=== PATIENT | female | born 1975 | race Caucasian/White ===

== ENCOUNTER 2021-02-26 16:48 | Outpatient (REF) | payer OTHER, SELFPAY | END 2021-02-26 16:49 | disposition home or self-care (01) | LOC: HO.LNP 16:48 | PROVIDERS: Visit Provider Physician Assistant Medical | DX: Z20.822 Contact with and (suspected) exposure to COVID-19 (principal); J06.9 Acute upper respiratory infection, unspecified | CPT/HCPCS: U0003; U0005 ==

== ENCOUNTER 2023-12-12 16:15 | Emergency (ER) | payer OTHER, SELFPAY ==
--- NOTE | 2023-12-12 | ECG_ITS ---
Test Reason : chest pain Blood Pressure : / mmHG Vent. Rate : 088 BPM Atrial Rate : 088 BPM P-R Int : 158 ms QRS Dur : 082 ms QT Int : 354 ms P-R-T Axes : 049 052 046 degrees QTc Int : 428 ms Normal sinus rhythm Normal ECG No previous ECGs available Referred By: Generic ED Physician Electronically Signed By:CORAL PALMA
--- NOTE | ~2023-12-12 | XR_ITS ---
EXAMINATION: XR CHEST CLINICAL INFORMATION: chest pain COMPARISON: None TECHNIQUE: 2 views of the chest FINDINGS: Lines and tubes: None. Clear lungs. No pleural effusion. No pneumothorax. Normal cardiomediastinal silhouette. Lucency and irregularity of the right lateral fifth rib may reflect an age indeterminate fracture deformity versus a lucent osseous lesion, recommend correlation with history of trauma and CT chest could be confirmatory. XR/XR chest 2V IMPRESSION: 1. Lucency and irregularity of the right lateral fifth rib may reflect an age indeterminate fracture deformity versus a lucent osseous lesion, recommend correlation with history of trauma and CT chest could be confirmatory in the absence of any history of trauma to suggest fracture. Electronically signed by: Vidya Espinosa MD 12/12/2023 05:08 PM EDT RP
[2023-12-12 16:34] VITALS: BP 137/65; PULSE 93; RESP 18; TEMP 37; O2SAT 94; BMI 28.1
--- NOTE | 2023-12-12 16:34 | ED.CHESTPAIN ---
HPI - Chest Pain General Chief Complaint: Chest Pain Stated Complaint: chest pain, light headed, headache Time Seen by Provider: 12/12/23 22:49 Related Data Home Medications ?Medication ?Instructions ?Recorded ?Confirmed L norgest/E estradiol-E estrad 1 tab PO DAILY 02/26/21 0.15 mg-30 mcg (84)/10 mcg(7) tabs,3mos adalimumab 40 mg/0.8 mL mg subcut 02/26/21 subcutaneous pen kit (Humira Pen) cholecalciferol (vitamin D3) 125 125 mcg PO DAILY 02/26/21 mcg (5,000 unit) tablet (Vitamin D3) ferrous gluconate 324 mg (38 mg 0 mg PO 02/26/21 iron) tablet folic acid 1 mg tablet 1 mg PO DAILY 02/26/21 prednisone 5 mg tablet 0 mg PO 02/26/21 Previous Rx's ?Medication ?Instructions ?Recorded lorazepam 0.5 mg tablet (Ativan) 0.5 mg PO TID PRN anxiety #10 tabs 12/12/23 Allergies Allergy/AdvReac Type Severity Reaction Status Date / Time Sulfa (Sulfonamide Allergy Unknown hives Verified 12/12/23 16:36 Antibiotics) FOR[facility]LY [facility], [facility] Social History Social History Patient Tobacco Use Status: Former Tobacco user Smoked in Last 30 Days: No Substance Use Type: Marijuana Advance Directives: No Advance Directives Information Provided: No Do you have a plan to hurt others: No Plan Patient : No Physical Exam Vital Signs: Vital Signs: Last Vital Signs Temp 98.0 F 12/12/23 23:32 Pulse 76 12/12/23 23:32 Resp 13 12/12/23 23:32 BP 146/75 H 12/12/23 23:32 Pulse Ox 100 12/12/23 23:32 O2 Del Method Room Air 12/12/23 23:32 BMI result Body Mass Index 28.1 Course Course Course Narrative: This is a Rapid Medical Examination (RME) performed by Leslie Hawthorne PA-C in triage. Full HPI, ROS, assessment and treatment plan per primary provider in the Main ED. 48 yo female hx of RA ambulates w/ cane, psoriatic arthritis, anxiety on duloxetine here for eval of intermittent chest pains x today. admits to chest fluttering. reports nausea last night which has resolved. denies vomiting. + very anxious in triage. RRR. lungs are clear. Plan: ekg, cxr, labs Medical Decision Making Lab Data MDM Lab Attestation statement: I reviewed the patient's lab results. 12/12/23 16:41 12/12/23 16:41 Labs: Lab Results 12/12/23 12/12/23 Range/Units 16:41 20:24 WBC 7.3 (4.8-10.8) X10*3/uL RBC 3.73 L (4.20-5.50) X10*6/uL Hgb 9.1 L (12.0-16.0) g/dl Hct 29.9 L (37.0-47.0) % MCV 80.2 (80.0-98.0) fL MCH 24.4 L (27.0-33.0) pg MCHC 30.4 L (31.0-35.0) g/dl RDW 14.3 (11.0-16.0) % Plt Count 609 H (160-400) X10*3/uL MPV 7.7 L (9.4-12.3) fL Immature Gran % (Auto) 0.3 (0.0-0.4) % Neut % (Auto) 66.2 (45-73) % Lymph % (Auto) 26.5 (20-40) % [place] % (Auto) 5.1 (2-11) % Eos % (Auto) 1.1 (0-4) % Baso % (Auto) 0.8 (0-2) % Lymph # (Auto) 1.9 (1.2-4.9) X10*3/uL [place] # (Auto) 0.4 (0.1-1.2) X10*3/uL Eos # (Auto) 0.1 (0.0-0.4) X10*3/uL Baso # (Auto) 0.1 (0.0-0.2) X10*3/uL Abs Immat Gran (auto) 0.02 (0.00-0.03) X10*3/uL Absolute Neuts (auto) 4.8 (2.0-8.3) x10*3/uL Absolute Nucleated RBC 0.000 (0.0-0.012) X10*3/uL Nucleated RBC % (auto) 0.0 (0.0-0.2) /100WBC Sodium 140 (135-145) mmol/L Potassium 3.7 (3.3-5.1) mmol/L Chloride 103 (96-108) mmol/L Carbon Dioxide 28 (22-29) mmol/L Anion Gap 13 (12-20) BUN 14 (9-16) mg/dL Creatinine 0.54 (0.5-1.4) mg/dL Estim Creat Clear Calc 125.8 Estimated GFR > 60 Random Glucose 87 (60-115) mg/dL Calcium 9.4 (8.4-10.2) mg/dL Magnesium 2.1 (1.6-2.6) mg/dL Total Bilirubin 0.3 (0.0-1.0) mg/dL AST 10 (5-31) U/L ALT 6 (0-31) U/L Alkaline Phosphatase 74 (39-117) U/L Troponin I High Sens < 2.7 < 2.7 (<3.5-17.0) ng/L Total Protein 7.5 (6.5-8.0) g/dL Albumin 3.4 L (3.5-5.0) g/dL Radiology Impression Discussion of test interpretation with radiology: I have reviewed the radiologist's reading. Radiologist Impression: XR chest 2V IMPRESSION: 1. Lucency and irregularity of the right lateral fifth rib may reflect an age indeterminate fracture deformity versus a lucent osseous lesion, recommend correlation with history of trauma and CT chest could be confirmatory in the absence of any history of trauma to suggest fracture. Electronically signed by: Vidya Espinosa MD 12/12/2023 05:08 PM EDT RP Dictated By: Vidya Espinosa MD Discharge Plan Discharge Clinical Impression: Palpitation, Anxiety Patient Disposition: Home, Self-Care Instructions: Heart Palpitations (ED), Hyperventilation (ED) Additional Instructions: Your blood work did reveal anemia however this is most likely consistent with your chronic anemia and it was not related to your chest pain Your comprehensive metabolic panel was normal. Your high sensitive troponin I ( a marker of heart damage) was below detectable limits in your repeat high sensitive troponin I was also below detectable limits. This is very reassuring and suggests that the pain that your experiencing is not from heart damage/heart attack. Your chest x-ray was unremarkable and did not reveal a cause for your chest pain. Your fluttering sensation is consistent with palpitations and sometimes this can cause you to have an anxiety attack/hyperventilation syndrome Continue taking medications as prescribed by your providers Take Ativan (lorazepam) 0.5 mg pills, 1 pill 3 times a day as needed for palpitations/anxiety. This medication will make you sleepy, do not drive or work while taking this medication. Follow-up with your doctor in 2 days. Please return to the emergency department if your symptoms get worse or if you develop any symptoms that are concerning to you. Prescriptions: New lorazepam [Ativan] 0.5 mg tablet 0.5 mg PO TID PRN (Reason: anxiety) Qty: 10 0RF Rx Instructions: patient may ask for partial fill No Action Humira Pen 40 mg/0.8 mL pen injector kit subcut prednisone 5 mg tablet 0 mg PO ferrous gluconate 324 mg (38 mg iron) tablet 0 mg PO cholecalciferol (vitamin D3) [Vitamin D3] 125 mcg (5,000 unit) tablet 125 mcg PO DAILY folic acid 1 mg tablet 1 mg PO DAILY L norgest/e.estradiol-e.estrad 0.15 mg-30 mcg (84)/10 mcg (7) tablets,dose pack,3 month 1 tab PO DAILY Interventions: ED Discharge Assessment Last Done: 12/12/23 23:32 Discharge Date/Time: 12/12/23 23:52 Print Language: Indonesian
[2023-12-12 16:53] LABS: MANUAL DIFF FLAG NO
[2023-12-12 16:55] LABS: Basophils Absolute Auto 0.1 X10*3/uL (0.0-0.2); Basophils Percent Auto 0.8 % (0-2); Eosinophils Absolute Auto 0.1 X10*3/uL (0.0-0.4); Eosinophils Percent Auto 1.1 % (0-4); Hematocrit 29.9 % (37.0-47.0); Hemoglobin 9.1 g/dl (12.0-16.0); Imm Gran Abs Auto 0.02 X10*3/uL (0.00-0.03); Imm Gran Pct Auto 0.3 % (0.0-0.4); Lymphocytes Absolute Auto 1.9 X10*3/uL (1.2-4.9); Lymphocytes Percent Auto 26.5 % (20-40); Mean Corpuscular HGB Conc 30.4 g/dl (31.0-35.0); Mean Corpuscular Hemoglobin 24.4 pg (27.0-33.0); Mean Corpuscular Volume 80.2 fL (80.0-98.0); Mean Platelet Volume 7.7 fL (9.4-12.3); Monocytes Absolute Auto 0.4 X10*3/uL (0.1-1.2); Monocytes Percent Auto 5.1 % (2-11); Neutrophils Absolute Auto 4.8 x10*3/uL (2.0-8.3); Neutrophils Percent Auto 66.2 % (45-73); Platelet Count 609 X10*3/uL (160-400); Red Blood Count 3.73 X10*6/uL (4.20-5.50); Red Cell Distribution Width 14.3 % (11.0-16.0); White Blood Count 7.3 X10*3/uL (4.8-10.8)
[2023-12-12 17:15] LABS: Alanine Aminotransferase 6 U/L (0-31); Albumin Level 3.4 g/dL (3.5-5.0); Alkaline Phosphatase 74 U/L (39-117); Anion Gap 13 (12-20); Aspartate Amino Transferase 10 U/L (5-31); Bilirubin Total 0.3 mg/dL (0.0-1.0); Blood Urea Nitrogen 14 mg/dL (9-16); Calcium 9.4 mg/dL (8.4-10.2); Carbon Dioxide 28 mmol/L (22-29); Chloride 103 mmol/L (96-108); Creatinine Clr Calc Pharmacy 125.8; Estimated Glomerular Filt Rate > 60; Glucose Random 87 mg/dL (60-115); Magnesium 2.1 mg/dL (1.6-2.6); Potassium 3.7 mmol/L (3.3-5.1); Sodium 140 mmol/L (135-145); Total Protein 7.5 g/dL (6.5-8.0)
[2023-12-12 17:23] LABS: Troponin-I High Sensitivity < 2.7 ng/L (<3.5-17.0)
[2023-12-12 20:15] VITALS: BP 147/74; PULSE 89; RESP 20; TEMP 36; O2SAT 100
--- OUTSIDE RECORDS SUMMARY | 2023-12-12 20:28 | XMS_ITS | Continuity of Care Document ---
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 Name Role Phone Stacey Lacey GARCIA Primary Care Physician Encounter [facility] Date(s): 12/20/21 - 01/19/22 [facility] [address] [place] [address]- Attending Physician: Dennis López Admitting Physician: Dennis López Referring Physician: AdmtrDennis Allergies, Adverse Reactions, Alerts Substance Reaction Severity Status sulfa drugs rash and fever Active Immunizations Given and Recorded Vaccine Date Status Refusal Reason SARS-CoV-2 (COVID-19) mRNA BNT-162b2 vac 1 02/20/21 Recorded SARS-CoV-2 (COVID-19) mRNA BNT-162b2 vac 07/13/20 Recorded SARS-CoV-2 (COVID-19) mRNA BNT-162b2 vac 06/21/20 Recorded Measles/Mumps/Rubella Virus Vaccine 10/04/15 Given tetanus/diphtheria/pertussis, acel(Tdap) 08/04/15 Given 1Result Comment: Booster Medications acetaminophen 325 mg oral tablet 650 mg, By Mouth, Every 6 hours, Refills 0, Maintenance, 11/09/21 8:23:00 EDT, Partial fill upon patient request if the prescription is for a schedule II opioid drug. Start Date: 11/09/21 Status: Ordered apixaban 2.5 mg oral tablet 1 tablet = 2.5 mg, By Mouth, 2 times a day, # 60 tablet, 0 Refills, Maintenance, 11/09/21 8:16:00 EDT, Tablet, [facility], Partial fill upon patient request if the prescription is for aschedule II opioid drug., 158, cm, 11/09/21 6:57:00... Start Date: 11/09/21 Stop Date: 12/09/21 Status: Ordered docusate sodium 50 mg oral capsule 2 capsule = 100 mg, By Mouth, 2 times a day, Take 1 tablet two times a day with plenty of water, # 120 capsule, 0 Refills, Maintenance, 11/09/21 8:20:00 EDT, Capsule, [facility], Partial fill upon patient request if the prescription is... Start Date: 11/09/21 Status: Ordered duloxetine 20 mg oral enteric coated capsule 1 capsule = 20 mg, By Mouth, Daily at bedtime, # 30 capsule, 1 Refills, Maintenance, 10/16/21 13:16:00 EDT, EC Capsule, [facility], Partial fill upon patient request if the prescription is for a schedule II opioid drug., 160.02, cm, 0... Start Date: 10/16/21 Stop Date: 12/15/21 Status: Ordered ferrous gluconate 324 mg oral tablet 1 tablet, By Mouth, 2 times a day, IF MENSTRUATING, INCREASE TO 3 TIMES DAILY. 30 DAY SUPPLY., # 70tablet, 1 Refills, Maintenance, 12/17/21 9:20:00 EDT, [id number], 158, cm, 12/13/21 10:52:00 EDT, Height, 78, kg, 12/13/21 10:52:00 EDT, Dry Weight Start Date: 12/17/21 Status: Ordered folic acid 1 mg oral tablet 1, tablet, By Mouth, Daily, EXCEPT THE DAY YOU TAKE METHOTREXATE., # 26 tablet, Refills 6, Maintenance, 01/12/22 8:49:00 EDT, Route to Pharmacy Electronically, [id number], 158, cm, 12/13/21 10:52:00 EDT, Height, 78, kg, 12/13/21 10:52:00 EDT, Dry... Start Date: 01/12/22 Status: Ordered methotrexate 2.5 mg oral tablet 4 tablet = 10 mg, By Mouth, Every week, # 32 tablet, 6 Refills, Maintenance, 03/07/21 16:05:00 EST,[facility] #[id number], Partial fill upon patient request if the prescription is for a schedule II opioid drug., 161.5, cm, 02/08/21 16:15:00 EST, Height Start Date: 03/07/21 Status: Ordered Milk of Magnesia Liquid 30 mL, By Mouth, Daily, PRN Constipation, 0 Refills, Maintenance, 11/09/21 8:26:00 EDT, Suspension,Partial fill upon patient request if the prescription is for a schedule II opioid drug. Start Date: 11/09/21 Status: Ordered MiraLax Powder 1 pack/packet = 17 Gm, By Mouth, Daily, PRN Constipation, 0 Refills, Maintenance, 11/09/21 8:26:00 EDT, Powder, Partial fill upon patient request if the prescription is for a schedule II opioid drug. Start Date: 11/09/21 Status: Ordered pantoprazole 40 mg oral delayed release tablet = 40 mg, By Mouth, Daily, Take 1 capsule daily, # 30 capsule, 0 Refills, Maintenance, 11/09/21 8:18:00 EDT, EC Tablet, 158, cm, 11/09/21 6:57:00 EDT, Height, 83.5, kg, 11/08/21 11:05:00 EDT, Dry Weight Start Date: 11/09/21 Stop Date: 12/09/21 Status: Ordered predniSONE 5 mg oral tablet 1 tablet, By Mouth, Daily, # 30 tablet, 2 Refills, Maintenance, 11/24/21 9:42:00 EDT, [facility], 158, cm, 11/09/21 6:57:00 EDT, Height, 83.5, kg, 11/08/21 11:05:00 EDT, Dry Weight Start Date: 11/24/21 Status: Ordered senna 187 mg oral tablet 1 tablet = 8.6 mg, By Mouth, Daily at bedtime, PRN as needed for constipation, 0 Refills, Maintenance, 11/09/21 8:26:00 EDT, Tablet, Partial fill upon patient request if the prescription is for a schedule II opioid drug. 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 Depression with anxiety Confirmed Active Obese class I Confirmed Active avascular necrosis knees Confirmed Active Polyarthritis Confirmed Active Prolonged QT interval Confirmed Active Psoriasis Confirmed Active Rheumatoid arthritis, erosive, seronegative Confirmed Active Lupus Confirmed Active Thrombocytosis Confirmed Active Urge incontinence Confirmed Active Uterine fibroid Confirmed Active Vitamin D deficiency Confirmed Active Social History Social History Type Response Smoking Status Never smoker entered on: 09/07/15 Sex Patient Care team information Personnel Name: Stacey GARCIA, Lacey Thomas Address: Address: [address] [place] [id number]
--- OUTSIDE RECORDS SUMMARY | 2023-12-12 20:28 | XMS_ITS | Continuity of Care Document ---
Author Organization [facility] Address [address] [place] [address]- Care Team Providers Care Hourly Associate Name Role Phone Stacey Lacey GARCIA Primary Care Physician [phone] [facility] Date(s): 11/18/19 - 12/18/19 [facility] [address] [place] [id number] Attending Physician: Dennis López Admitting Physician: Admtr, Dennis Referring Physician: Admtr, [id number] Allergies, Adverse Reactions, Alerts Substance Reaction Severity Status sulfADIAZINE Active Immunizations Given and Recorded Vaccine Date Status Refusal Reason Measles/Mumps/Rubella Virus Vaccine 10/04/15 Given tetanus/diphtheria/pertussis, acel(Tdap) 08/04/15 Given Medications cholecalciferol 10,000 intl units oral capsule 1 capsule = 10,000 International_Units, By Mouth, Every week, # 5 capsule, 5 Refills, Maintenance, 11/19/16 10:57:56, Capsule Start Date: 11/19/16 Status: Ordered Tylenol Caplet = 650 mg, By Mouth, Every 4 hours, 0 Refills, Maintenance, 09/14/15 16:12:22 Start Date: 09/14/15 Status: Ordered Problem List Condition Effective Dates Status Health Status Inform ant AVN (avascular necrosis of b one) left hip;NEOS(Confirmed) 04/01/18 Active AMA (advanced maternal age) primigravida 35+(Confirmed) Active History of hip replacement(Confirmed) Active Obesity(Confirmed) Active Polyarthritis(Confirmed) Active Psoriasis(Confirmed) Active Lupus(Confirmed) Active Urge incontinence(Confirmed) Active Vitamin D deficiency(Confirmed) Active Social History Social History Type Response Smoking Status Never smoker entered on: 09/07/15 Sex
--- OUTSIDE RECORDS SUMMARY | 2023-12-12 20:28 | XMS_ITS | Continuity of Care Document ---
Author Organization [facility] Address [address] [place] [address]- Care Team Providers Care Suit Attendant Name Role Phone Stacey Lacey GARCIA Primary Care Physician Encounter [facility] Date(s): 09/07/21 - 10/07/21 [facility] [address] [place], [place] [address] Allergies, Adverse Reactions, Alerts Substance Reaction Severity Status sulfa drugs rash and fever Active Immunizations Given and Recorded Vaccine Date Status Refusal Reason SARS-CoV-2 (COVID-19) mRNA BNT-162b2 vac 1 02/20/21 Recorded SARS-CoV-2 (COVID-19) mRNA BNT-162b2 vac 07/13/20 Recorded SARS-CoV-2 (COVID-19) mRNA BNT-162b2 vac 06/21/20 Recorded Measles/Mumps/Rubella Virus Vaccine 10/04/15 Given tetanus/diphtheria/pertussis, acel(Tdap) 08/04/15 Given 1Result Comment: Booster Medications ferrous gluconate 324 mg oral tablet 1 tablet = 324 mg, By Mouth, 3 times a day, # 100 tablet, 0 Refills, Maintenance, 08/29/21 9:22:00 EDT, Tablet, Partial fill upon patient request if the prescription is for a schedule II opioid drug. Start Date: 08/29/21 Status: Ordered oxyCODONE 5 mg oral tablet 5 mg, 1, tablet, By Mouth, Every 6 hours, PRN, # 5 tablet, Refills 0, Tot. Refills 0, Maintenance, as needed for pain, 09/18/21 11:01:00 EDT, Route to Pharmacy Electronically, [facility], Partial fill upon patient request if the presc... Start Date: 09/18/21 Status: Ordered Tramadol = 50 mg, By Mouth, Every 6 hours, PRN Pain , Moderate, 0 Refills, Maintenance, 07/26/21 6:58:00 EDT, Partial fill upon patient request if the prescription is for a schedule II opioid drug. Start Date: 07/26/21 Status: Ordered Tylenol Arthritis Caplet 2 tablets, By Mouth, Every 8 hours, 0 Refills, Maintenance, 09/07/21 9:14:00 EDT, Partial fill uponpatient request if the prescription is for a schedule II opioid drug. Start Date: 09/07/21 Status: Ordered Problem List Condition Effective Dates Status Health Status Inform ant Abnormal bleeding in menstru al cycle(Confirmed) Active History of hip replacement(Confirmed) Active correction systemic steroid user(Confirmed) Active Depression with anxiety(Confirmed) Active Obese class I(Confirmed) Active avascular necrosis knees(Confirmed) Active Polyarthritis(Confirmed) Active Prolonged QT interval(Confirmed) Active Psoriasis(Confirmed) Active Rheumatoid arthritis, erosiv e, seronegative(Confirmed) Active Lupus(Confirmed) Active Thrombocytosis(Confirmed) Active Urge incontinence(Confirmed) Active Vitamin D deficiency(Confirmed) Active Social History Social History Type Response Smoking Status Never smoker entered on: 09/07/15 Sex
--- OUTSIDE RECORDS SUMMARY | 2023-12-12 20:28 | XMS_ITS | Continuity of Care Document ---
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 Machine Mechanic Name Role Phone Stacey JOSE, Lacey Thomas Primary Care Physician [phone] Encounter [facility] Date(s): 01/11/21 - 02/10/[address] [address] Allergies, Adverse Reactions, Alerts Substance Reaction Severity Status sulfADIAZINE Active Immunizations Given and Recorded Vaccine Date Status Refusal Reason SARS-CoV-2 (COVID-19) mRNA BNT-162b2 vac 07/13/20 Recorded SARS-CoV-2 (COVID-19) mRNA BNT-162b2 vac 06/21/20 Recorded Measles/Mumps/Rubella Virus Vaccine 10/04/15 Given tetanus/diphtheria/pertussis, acel(Tdap) 08/04/15 Given Medications ferrous gluconate 324 mg oral tablet 1 tablet, By Mouth, 2 times a day, for 30 days, TAKE TID WHEN MENSTRUATING, # 70 tablet, 6 Refills,Acute 07/26/21 22:23:00 EDT, 12/28/20 22:23:00 EDT, [id number], 161.5, cm, 12/21/20 14:28:00 EDT, Height Start Date: 12/28/20 Stop Date: 07/26/21 Status: Ordered Seasonique oral tablet 1 tablet, By Mouth, Daily, for 91 days, # 91 tablet, 0 Refills, Acute 03/29/21 11:40:00 EST, 12/28/20 11:40:00 EDT, [id number], 1 tablet By Mouth Daily,x91 days, 161.5, cm, 12/21/20 14:28:00 EDT, Height Start Date: 12/28/20 Stop Date: 03/29/21 Status: Ordered Tylenol Caplet = 650 mg, By Mouth, Every 4 hours, 0 Refills, Maintenance, 09/14/15 16:12:22 Start Date: 09/14/15 Status: Ordered Problem List Condition Effective Dates Status Health Status Inform ant 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
--- OUTSIDE RECORDS SUMMARY | 2023-12-12 20:28 | XMS_ITS | Continuity of Care Document ---
Author Organization [facility] Kali Address [address] [place] [address]- Care Team Providers Care Legal Referee Name Role Phone Stacey MANAGER FOREIGN, Lacey Thomas Primary Care Physician Encounter [facility] Date(s): 06/25/23 - 07/02/23 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 Depression with anxiety(Discharge Diagnosis) - 06/25/23 Rheumatoid arthritis, erosive, seronegative(Discharge Diagnosis) - 06/25/23 Thrombocytosis(Discharge Diagnosis) - 06/25/23 Vitamin D deficiency(Discharge Diagnosis) - 06/25/23 Attending Physician: Not on Staff, Attending MD Allergies, Adverse Reactions, Alerts Substance Reaction Severity Status sulfa drugs rash and fever Active Immunizations Given and Recorded Vaccine Date Status Refusal Reason pneumococcal 20-valent conjugate vaccine 1 01/13/23 Given influenza virus vaccine, inactivated 12/20/22 Orion rded SARS-CoV-2 (COVID-19) mRNA BNT-162b2 vac 2 02/20/21 Recorded SARS-CoV-2 (COVID-19) mRNA BNT-162b2 vac 07/13/20 Recorded SARS-CoV-2 (COVID-19) mRNA BNT-162b2 vac 06/21/20 Recorded Measles/Mumps/Rubella Virus Vaccine 10/04/15 Given tetanus/diphtheria/pertussis, acel(Tdap) 08/04/15 Given 1Result Comment: [id number] 2Result Comment: Booster Medications acetaminophen 325 mg oral tablet 650 mg, By Mouth, Every 6 hours, Refills 0, Maintenance, 11/09/21 8:23:00 EDT, Partial fill upon patient request if the prescription is for a schedule II opioid drug. Start Date: 11/09/21 Status: Ordered alendronate 70 mg oral tablet See Instructions, 1 tablet By Mouth, once weekly, with 6-8 oz plain water, at least 30 minutes before first food, beverage, or medication of the day, # 4 tablet, 6 Refills, Maintenance, 05/20/23 9:32:00 EST, [facility], Partial fill... Start Date: 05/20/23 Status: Ordered BD 1ML 25G 1 inch syringe BD 1ML 25G 1 inch syringe, See Instructions, # 4 each, Refills 6, Tot. Refills 6, Maintenance, use 1 syringe weekly to inject SQ methotrexate as directed, 12/16/22 16:55:00 EDT, Supply, 158, cm, 11/21/22 9:48:00 EDT, Height, 78, kg, 12/13/21 10:52:00... Start Date: 12/16/22 Status: Ordered Caltrate 600 + D oral tablet 1 tablet, By Mouth, 2 times a day, # 60 tablet, 6 Refills, Maintenance, 12/16/22 16:28:00 EDT, Tablet, [facility], Partial fill upon patient request if the prescription is for a schedule II opioid drug., 1 tablet By Mouth 2 times a da... Start Date: 12/16/22 Status: Ordered duloxetine 20 mg oral enteric coated capsule 1 capsule, By Mouth, Daily, # 30 capsule, 5 Refills, Maintenance, 06/24/23 15:42:00 EDT, [facility], 158, cm, 05/19/23 16:05:00 EST, Height, 78, kg, 12/13/21 10:52:00 EDT, Dry Weight Start Date: 06/24/23 Status: Ordered ferrous gluconate 324 mg oral tablet 1 tablet, By Mouth, 2 times a day, IF MENSTRUATING, INCREASE TO 3 TIMES DAILY. 30 DAY SUPPLY., # 70tablet, 1 Refills, Maintenance, 12/17/21 9:20:00 EDT, [id number], 158, cm, 12/13/21 10:52:00 EDT, Height, 78, kg, 12/13/21 10:52:00 EDT, Dry Weight Start Date: 12/17/21 Status: Ordered Flonase Allergy Relief 50 mcg/inh nasal spray See Instructions, 1 sprays Daily in each nostril, # 16 Gm, 0 Refills, Maintenance, 05/08/23 10:58:00 EST, [id number], Partial fill upon patient request if the prescription is for a schedule II opioid drug., 158, cm, 01/13/23 9:29:00 EDT, Heig... Start Date: 05/08/23 Status: Ordered folic acid 1 mg oral tablet 1, tablet, By Mouth, Daily, EXCEPT THE DAY YOU TAKE METHOTREXATE., # 26 tablet, Refills 6, Maintenance, 03/11/23 15:05:00 EST, Route to Pharmacy Electronically, [id number], 158, cm, 01/13/23 9:29:00 EDT, Height, 78, kg, 12/13/21 10:52:00 EDT, Dry... Start Date: 03/11/23 Status: Ordered for med administration for med administration, See Instructions, # 4 each, Refills 4, Tot. Refills 4, Maintenance, BD 3ml 25G 1 inch syringe Use one syringe weekly for the administration of medication, 05/08/23 14:29:00 EST, Supply, 158, cm, 01/13/23 9:29:00 EDT, Height, 7... Start Date: 05/08/23 Status: Ordered gabapentin 100 mg oral capsule 100 mg, 1, capsule, By Mouth, 3 times a day, # 90 capsule, Refills 5, Tot. Refills 5, Maintenance, 05/19/23 16:26:00 EST, Route to Pharmacy Electronically, [facility], Partial fill upon patient request if the prescription is for a lucho... Start Date: 05/19/23 Status: Ordered meloxicam 15 mg oral tablet 1 tablet, By Mouth, Every other day, # 15 tablet, 4 Refills, Maintenance, 03/26/23 13:25:00 EST, [id number], 158, cm, 01/13/23 9:29:00 EDT, Height, 78, kg, 12/13/21 10:52:00 EDT, Dry Weight Start Date: 03/26/23 Status: Ordered methotrexate 25 mg/mL injectable solution = 25 mg, Subcutaneous Injection, Every week, # 4 mL, 6 Refills, Maintenance, 12/16/22 17:05:00 EDT,[facility], Partial fill upon patient request if the prescription is for a schedule II opioid drug., 158, cm, 11/21/22 9:48:00 EDT, He... Start Date: 12/16/22 Stop Date: 07/14/23 Status: Ordered Milk of Magnesia Liquid 30 mL, By Mouth, Daily, PRN Constipation, 0 Refills, Maintenance, 11/09/21 8:26:00 EDT, Suspension,Partial fill upon patient request if the prescription is for a schedule II opioid drug. Start Date: 11/09/21 Status: Ordered predniSONE 5 mg oral tablet 1 tablet = 5 mg, By Mouth, Daily, for 90 days, # 90 tablet, 2 Refills, Hard Stop 12/12/23 15:43:00 EDT, 03/17/23 15:43:00 EST, [facility], Partial fill upon patient request if the prescription is for a schedule II opioid drug., 158, c... Start Date: 03/17/23 Stop Date: 12/12/23 Status: Ordered Simponi SmartJect 50 mg/0.5 mL subcutaneous solution See Instructions, INJECT 50MG SUBCUTANEOUSLY EVERY 28 DAYS, # 0.5 mL, 3 Refills, Maintenance, 03/11/23 15:07:00 EST, [facility], 158, cm, 01/13/23 9:29:00 EDT, Height, 78, kg, 12/13/21 10:52:00 EDT, Dry Weight Start Date: 03/11/23 Status: Ordered Vitamin D3 5000 intl units oral tablet See Instructions, 1 tablet By Mouth weekly, # 100 tablet, 0 Refills, Maintenance, 02/11/23 14:46:00EST, Tablet, [id number], Partial fill upon patient request if the prescription is for a schedule II opioid drug., 158, cm, 01/13/23 9:29:00 EDT... Start Date: 02/11/23 Status: Ordered Problem List Condition Confirmation Course Effective Dates Status H ealth Status Informant History of hip replacement Confirmed Active Iron deficiency anemia Confirmed Active half-way systemic steroid user Confirmed Active Depression with anxiety Confirmed Active Obese class I Confirmed Active avascular necrosis knees Confirmed Active Polyarthritis Confirmed Active Prolonged QT interval Confirmed Active Psoriasis Confirmed Active Rheumatoid arthritis, erosive, seronegative Confirmed Active Lupus Confirmed Active Thrombocytosis Confirmed Active Urge incontinence Confirmed Active Uterine fibroid Confirmed Active Vitamin D deficiency Confirmed Active Diagnosis Diagnosis Type Effective Dates Health Status Clinical Service Informant Fatigue Discharge Diagnosis 06/25/23 Iron deficiency anemia Discharge Diagnosis 06/25/23 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 Discharge Diagnosis 06/25/23 Depression with anxiety Discharge Diagnosis 06/25/23 Rheumatoid arthritis, erosive, seronegative Discharge Diagnosis 06/25/23 Thrombocytosis Discharge Diagnosis 06/25/23 Vitamin D deficiency Discharge Diagnosis 06/25/23 Vital Signs Most recent to oldest [Reference Range]: 1 Height 158 cm (06/25/23 9:29 AM) Weight 84.4 kg (06/25/23 9:29 AM) Oxygen Saturation [94-100 %] 96 % (06/25/23 9:29 AM) Pulse Rate [55-90 bpm] 74 bpm (06/25/23 9:29 AM) Body Mass Index [18.5-24.99 kg/m2] 33.81 kg/m2 *>HHI* (06/25/23 9:29 AM) Blood Pressure [90-138/55-84 mm Hg] 129/ 73mm Hg (06/25/23 9:29 AM) Temperature [96.8-100.4 DegF] 98.0 DegF (06/25/23 9:29 AM) Mode of Delivery (Oxygen) Room air (06/25/23 9:29 AM) Blood pressure sites Arm, left (06/25/23 9:29 AM) Temperature Route Oral (06/25/23 9:29 AM) Weight Obtained Via Standing scale (06/25/23 9:29 AM) Social History Social History Type Response Smoking Status Never smoker entered on: 09/07/15 Sex Note * Mario Edgar: PERFORM, SIGN, VERIFY Event Display: Patient Education/Instruction Authored Date: [id number] [facility] *MEGAN Ramirez Clinical Summary Name EDGAR GARCIA Age 48 Years 1975 PCP Stacey MANAGER FOREIGN, Lacey Thomas PCP Visit Date 06/25/2023 09:24:00 Additional Instructions: Scheduled Appointments?? Future Appointments ?No Future Appointments Scheduled Follow-Up Instructions ?? Diagnosis Other fatigue; half-way (current) use of systemic steroids; Iron deficiency anemia, unspecified Medications: Please continue your medications until treatment is completed or stopped by your provider. Discuss any questions related to medications with your provider. Medications to Continue Taking That Have Changed These medications were not printed or sent to your pharmacy - PredniSONE (predniSONE 5 mg oral tablet) 1 tab(s) Oral Daily for 90 Days. Refills: 2. Next Dose: Medications to Continue with No Changes These medications were not printed or sent to your pharmacy Acetaminophen (acetaminophen 325 mg oral tablet) 650 Milligram Oral every 6 hours. Next Dose: Alendronate (alendronate 70 mg oral tablet) 1 tablet By Mouth, once weekly, with 6-8 oz plain water, at least 30 minutes before first food, beverage, or medication of the day.Refills: 6. Next Dose: Calcium And Vitamin D Combination (Caltrate 600 + D oral tablet) 1 tab(s) Oral twice a day. Refills: 6. Next Dose: Cholecalciferol (Vitamin D3 5000 intl units oral tablet) 1 tablet By Mouth weekly. Refills: 0. Next Dose: Duloxetine (duloxetine 20 mg oral enteric coated capsule) 1 capsule Oral Daily. Refills: 5. Next Dose: Durable Medical Equipment (BD 1ML 25G 1 inch syringe) use 1 syringe weekly to inject SQ methotrexate as directed. Refills: 6. Next Dose: Durable Medical Equipment (for med administration) BD 3ml 25G 1 inch syringe Use one syringe weekly for the administration of medication. Refills: 4. Next Dose: Ferrous Gluconate (ferrous gluconate 324 mg oral tablet) 1 tab(s) Oral twice a day. IF MENSTRUATING, INCREASE TO 3 TIMES DAILY. 30 DAY SUPPLY.. Refills: 1. Next Dose: Fluticasone Nasal (Flonase Allergy Relief 50 mcg/inh nasal spray) 1 sprays Daily in each nostril. Refills: 0. Next Dose: Folic Acid (folic acid 1 mg oral tablet) 1 tab(s) Oral Daily. EXCEPT THE DAY YOU TAKE METHOTREXATE.. Refills: 6. Next Dose: Gabapentin (gabapentin 100 mg oral capsule) 1 capsule Oral 3 times a day. Refills: 5. Next Dose: Golimumab (Simponi SmartJect 50 mg/0.5 mL subcutaneous solution) INJECT 50MG SUBCUTANEOUSLY EVERY 28 DAYS. Refills: 3. Next Dose: Meloxicam (meloxicam 15 mg oral tablet) 1 tab(s) Oral every other day. Refills: 4. Next Dose: Methotrexate (methotrexate 25 mg/mL injectable solution) 25 Milligram Subcutaneous Injection every week for 30 Days. Refills: 6. Next Dose: Milk of Magnesia (Milk of Magnesia Liquid) 30 Milliliter Oral Daily as needed Constipation. Next Dose: Allergy Info:?? sulfa drugs Medications Given This Visit Future Orders ?No future orders Future Orders ?Ferritin? Order Date:06/25/23?- Complete within?CBC? Order Date:06/25/23?- Complete within?TSH? Order Date:06/25/23?- Complete within?Vitamin D 25 Hydroxy Level? Order Date:06/25/23?- Complete within?Vitamin B12 Level? Order Date:06/25/23?- Complete within?Comprehensive Metabolic Panel? Order Date:06/25/23?- Complete within? Vital Signs Height 158 cm Weight 84.4 kg BMI 33.81 kg/m2 Blood Pressure 129 mm Hg/73 mm Hg Temperature 98.0 DegF Pulse Rate 74 bpm Respiratory Rate 02 Sat Mode of Delivery 96 %/Room air You can now view a summary of your hospital visit from the comfort of your home through a free online portal called [employer]. [employer] is a website that allows you to securely view your medical information including discharge summary, medications and follow-up visits. ??You can alsosend a secure electronic message to your doctor???s office to request appointments, renew medications or just ask a question. You can enroll at [email or web address] or register during your next office visit. Disclaimer:?? The information provided is of a general nature and is intended to be used in conjunction with the recommendations and advice of your health care practitioner. ??Every effort has been made to ensure that the information provided is accurate and complete at the time it is provided to you however, as your needs change, or, as new ??information becomes available, different or additional instructions may be required. If you have questions, please consult with your primary care provider or pharmacist, as appropriate. ??This information is not intended to serve as substitution for assessment and evaluation by a qualified health care provider. If you do not have a primary care provider, you may find a [facility] provider by calling [employer] at [phone]. [facility], in keeping with [facility] guidance, no longer requires face masks for staff, patientsor visitors in most situations. Similar to time spent indoors at other locations, there is the chance that you were exposed to respiratory viruses during your time with us (such as flu or COVID-19).? If you develop symptoms concerning for a viral respiratory infection, please seek testing (and treatment if indicated) from your medical provider or home test kit. For information about the plan of care including goals and instructions for your diagnosis, please see the patient education orders section of this document. Patient Education Materials?? The content of this educational material or handout may have been modified, supplemented, or adapted from its original content and format to support your individualized medical care. Patient Care team information Care Team Personnel Name: Krystina Goldsmith RN Position: [facility] RN Member Role: Primary Care Nurse Name: Lacey Ibarra NP Position: [facility] PCO Associate Professional Member Role: PCP Address: Address: [address] [place] [id number] Name: Edna Mallory Position: [facility] Outreach Member Role: Lifetime Consulting Physician Name: Silvia Whaley RN Position: [facility] Onco RN Member Role: Primary Care Nurse Name: Tarah De Leon RN Position: [facility] SN RN Member Role: Primary Care Nurse Care Team Related Persons Name: JIMENEZ GARCIA Address: home [address] [place] [id number] Name: WILLY GARCIA Address: [address] [address]
--- OUTSIDE RECORDS SUMMARY | 2023-12-12 20:28 | XMS_ITS | Continuity of Care Document ---
Author Organization [facility] Address [address] [place] [id number]- Care Team Providers Care Chief Growth Officer Name Role Phone Stacey Lacey GARCIA Primary Care Physician Encounter [facility] Date(s): 10/20/23 - 11/19/23 [facility] Adult [address] [place] [phone]- Allergies, Adverse Reactions, Alerts Substance Reaction Severity [...] Given tetanus/diphtheria/pertussis, acel(Tdap) 08/04/15 Given 1Result Comment: [id number] 2Result Comment: Booster Medications acetaminophen 325 mg [...] tablet, 6 Refills, Maintenance, 05/20/23 9:32:00 EST, [facility], Partial fill... Start Date: 05/20/23 Status: Ordered BD 1ML 25G 1 inch syringe BD 1ML 25G 1 inch syringe, See Instructions, # 4 each, Refills 6, Tot. Refills 6, Maintenance, use 1 syringe weekly to inject SQ methotrexate as directed, 12/16/22 16:55:00 EDT, Supply, 158, cm, 11/21/22 9:48:00 EDT, Height, 78, kg, 12/13/21 10:52:00... Start Date: 12/16/22 Status: Ordered BD 3 ML SYRINGE 25GX1 25G X 1 Miscellaneous BD 3 ML SYRINGE 25GX1 25G X 1 Miscellaneous, See Instructions, # 4 Unknown, 4 Refills, Maintenance, USE ONE SYRINGE WEEKLY FOR THE ADMINISTRATION OF MEDICATION, 09/10/23 13:29:00 EDT, 158, cm, 08/01/23 7:14:00 EDT, Height, 78, kg, 12/13/21 10:52:00... Start Date: 09/10/23 Status: Ordered CALCIUM 600-VIT D3 800 TAB 600-20 Tablet CALCIUM 600-VIT D3 800 TAB 600-20 Tablet, 1, tablet, By Mouth, 2 times a day, # 60 tablet, 6 Refills, Maintenance, 09/27/23 16:40:00 EDT, 158, cm, 09/15/23 8:50:00 EDT, Height, 78, kg, 12/13/21 10:52:00 EDT, Dry Weight Start Date: 09/27/23 Status: Ordered Caltrate 600 + D oral tablet 1 tablet, By Mouth, 2 times a day, # 60 tablet, 6 Refills, Maintenance, 12/16/22 16:28:00 EDT, Tablet, [facility], Partial fill upon patient request if the prescription is for a schedule II opioid drug., 1 tablet By Mouth 2 times a da... Start Date: 12/16/22 Status: Ordered duloxetine 20 mg oral enteric coated capsule 2 capsule = 40 mg, By Mouth, Daily, # 180 capsule, 0 Refills, Maintenance, 09/16/23 11:45:00 EDT, EC Capsule, [id number], 158, cm, 09/15/23 8:50:00 EDT, Height, 78, kg, 12/13/21 10:52:00 EDT,Dry Weight Start Date: 09/16/23 Stop Date: 12/15/23 Status: Ordered ferrous gluconate 324 mg oral tablet 1 tablet, By Mouth, 2 times a day, IF MENSTRUATING, INCREASE TO 3 TIMES DAILY. 30 DAY SUPPLY., # 70tablet, 1 Refills, Maintenance, 12/17/21 9:20:00 EDT, [facility]ORE [id number], 158, cm, 12/13/21 10:52:00 EDT, Height, 78, kg, 12/13/21 10:52:00 EDT, Dry Weight Start Date: 12/17/21 Status: Ordered Flonase Allergy Relief 50 mcg/inh nasal spray See Instructions, 1 sprays Daily in each nostril, # 16 Gm, 0 Refills, Maintenance, 05/08/23 10:58:00 EST, [facility][id number], Partial fill upon patient request if the prescription is for a schedule II opioid drug., 158, cm, 01/13/23 9:29:00 EDT, Heig... Start Date: 05/08/23 Status: Ordered folic acid 1 mg oral tablet 1, tablet, By Mouth, Daily, EXCEPT THE DAY YOU TAKE METHOTREXATE., # 26 tablet, Refills 6, Maintenance, 03/11/23 15:05:00 EST, Route to Pharmacy Electronically, [id number], 158, cm, 01/13/23 9:29:00 EDT, Height, 78, [...] Status: Ordered gabapentin 100 mg oral capsule 1, capsule, By Mouth, 3 times a day, # 90 capsule, Refills 5, Maintenance, 10/29/23 16:04:00 EDT, Route to Pharmacy Electronically, [facility], 158, cm, 09/15/23 8:50:00 EDT, Height,78, kg, 12/13/21 10:52:00 EDT, Dry Weight Start Date: 10/29/23 Status: Ordered Insulin Syringe, BD Ultra-Fine 1 cc 30 G x 12.7 mm (1/2in) See Instructions, # 6 each, Maintenance, use one syringe with each medication administration every 28 days, 09/04/23 9:17:00 EDT, Supply, 158, cm, 08/01/23 7:14:00 EDT, Height, 78, kg, 12/13/21 10:52:00 EDT, Dry Weight Start Date: 09/04/23 Status: Ordered meloxicam 15 mg oral tablet See Instructions, TAKE 1 TABLET BY MOUTH EVERY OTHER DAY, # 15 tablet, 4 Refills, Maintenance, 08/04/23 9:38:00 EDT, [id number], 158, cm, 08/01/23 7:14:00 EDT, Height, 78, kg, 12/13/21 10:52:00 EDT, Dry Weight Start Date: 08/04/23 Status: Ordered methotrexate 25 mg/mL injectable solution = 25 mg, Subcutaneous Injection, Every week, # 4 mL, 6 Refills, Maintenance, 12/16/22 17:05:00 EDT,[facility], Partial fill upon patient request if [...] tablet = 5 mg, By Mouth, Daily, # 30 tablet, 3 Refills, Maintenance, 11/03/23 13:46:00 EDT, [facility], Partial fill upon patient request if the prescription is for a schedule II opioid drug., 158, cm, 09/15/23 8:50:00 EDT, Height,... Start Date: 11/03/23 Status: Ordered predniSONE 5 mg oral tablet 1 tablet = 5 mg, By Mouth, Daily, for 90 days, # 90 tablet, 2 Refills, Hard Stop 12/12/23 15:43:00 EDT, 03/17/23 15:43:00 EST, [facility], Partial fill upon patient request if the prescription is for a schedule II opioid drug., 158, c... Start Date: 03/17/23 Stop Date: 12/12/23 Status: Ordered Simponi SmartJect 50 mg/0.5 mL subcutaneous solution See Instructions, INJECT 50MG SUBCUTANEOUSLY EVERY 28 DAYS, # 0.5 mL, 3 Refills, Maintenance, 08/06/23 11:46:00 EDT, [facility], 158, cm, 08/01/23 7:14:00 EDT, Height, 78, kg, 12/13/21 10:52:00 EDT, Dry Weight Start Date: 08/06/23 Status: Ordered traMADol 50 mg oral tablet 1 tablet = 50 mg, By Mouth, Every 6 hours, PRN severe pain, # 60 tablet, 1 Refills, Maintenance, 10/30/23 12:06:00 EDT, Tablet, [facility] #[id number], Partial fill upon patient request if the prescription is for a schedule II opioid drug., 158, cm, 09/14... Start Date: 10/30/23 Status: Ordered Vitamin D3 5000 intl units oral tablet See Instructions, 1 tablet By Mouth weekly, # 100 tablet, 0 Refills, Maintenance, 02/11/23 14:46:00EST, Tablet, [facility] #[id number], Partial fill upon patient request if the prescription is for a schedule II opioid drug., 158, cm, 01/13/23 9:29:00 EDT... 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 Depression with anxiety Confirmed Active Obese class I Confirmed Active avascular necrosis knees Confirmed Active Right knee pain Confirmed Active Polyarthritis Confirmed Active Prolonged QT interval Confirmed Active Psoriasis Confirmed Active Rheumatoid arthritis, erosive, seronegative Confirmed Active Lupus Confirmed Active Thrombocytosis Confirmed Active Urge incontinence Confirmed Active Uterine fibroid Confirmed Active Vitamin D deficiency Confirmed Active Social History Social History Type Response Smoking Status Never smoker entered on: 09/07/15 Sex Patient Care team information Care Team Personnel Name: Krystina Goldsmith RN Position: [facility] RN Member Role: Primary Care Nurse Name: Lacey Ibarra NP Position: [facility] PCO Associate Professional Member Role: PCP Address: Address: [address] [place] [id number] Name: Edna Mallory Position: [facility] Outreach Member Role: Lifetime Consulting Physician Name: Silvia Whaley RN Position: [facility] Onco RN Member Role: Primary Care Nurse Name: Tarah De Leon RN Position: [facility] AMB Nurse Member Role: Primary Care Nurse Care Team Related Persons Name: JIMENEZ GARCIA Address: home [address] [place] [id number] Name: WILLY GARCIA Address: home [address] [place] [id number]
--- OUTSIDE RECORDS SUMMARY | 2023-12-12 20:28 | XMS_ITS | Continuity of Care Document ---
Author Organization [facility] Address [address] [place] [phone]- Care Team Providers Care Special Distribution Clerk Name Role Phone Stacey Lacey GARCIA Primary Care Physician [place] [facility] [place]23 [place] 10/08/23 [facility] Adult [address] [place] [id number]- Allergies, Adverse Reactions, Alerts Substance Reaction Severity [...] Given tetanus/diphtheria/pertussis, acel(Tdap) 08/04/15 Given 1Result Comment: [id number] 2Result Comment: Booster Medications acetaminophen 325 mg [...] tablet, 6 Refills, Maintenance, 05/20/23 9:32:00 EST, [facility], Partial fill... Start Date: [...] 6 Refills, Maintenance, 12/16/22 16:28:00 EDT, Tablet, [facility], Partial fill upon patient request if the prescription is for a schedule II opioid drug., 1 tablet By Mouth 2 times a da... Start Date: 12/16/22 Status: Ordered duloxetine 20 mg oral enteric coated capsule 2 capsule = 40 mg, By Mouth, Daily, # 180 capsule, 0 Refills, Maintenance, 09/16/23 11:45:00 EDT, EC Capsule, [facility]/pharmacy #[id number], 158, cm, 09/15/23 8:50:00 EDT, Height, 78, kg, 12/13/21 10:52:00 EDT,Dry Weight Start Date: 09/16/23 Stop Date: 12/15/23 Status: Ordered ferrous gluconate 324 mg oral tablet 1 tablet, By Mouth, 2 times a day, IF MENSTRUATING, INCREASE TO 3 TIMES DAILY. 30 DAY SUPPLY., # 70tablet, 1 Refills, Maintenance, 12/17/21 9:20:00 EDT, [id number], 158, cm, 12/13/21 10:52:00 EDT, Height, 78, kg, 12/13/21 10:52:00 EDT, Dry Weight Start Date: 12/17/21 Status: Ordered Flonase Allergy Relief 50 mcg/inh nasal spray See Instructions, 1 sprays Daily in each nostril, # 16 Gm, 0 Refills, Maintenance, 05/08/23 10:58:00 EST, [facility]/pharmacy #[id number], Partial fill upon patient request if the prescription is for a schedule II opioid drug., 158, cm, 01/13/23 9:29:00 EDT, [facility]... Start Date: 05/08/23 Status: Ordered folic acid 1 mg oral tablet 1, tablet, By Mouth, Daily, EXCEPT THE DAY YOU TAKE METHOTREXATE., # 26 tablet, Refills 6, Maintenance, 03/11/23 15:05:00 EST, Route to Pharmacy Electronically, [id number], 158, cm, 01/13/23 9:29:00 EDT, Height, 78, [...] 05/19/23 16:26:00 EST, Route to Pharmacy Electronically, [facility], Partial fill upon patient request if the prescription is for a lucho... Start Date: 05/19/23 Status: Ordered Insulin Syringe, BD Ultra-Fine 1 [...] tablet, 4 Refills, Maintenance, 08/04/23 9:38:00 EDT, [id number], 158, cm, 08/01/23 7:14:00 EDT, Height, 78, kg, 12/13/21 10:52:00 EDT, Dry Weight Start Date: 08/04/23 Status: Ordered methotrexate 25 mg/mL injectable solution = 25 mg, Subcutaneous Injection, Every week, # 4 mL, 6 Refills, Maintenance, 12/16/22 17:05:00 EDT,[facility], Partial fill upon patient request [...] Stop 12/12/23 15:43:00 EDT, 03/17/23 15:43:00 EST, [facility], Partial fill upon patient request if the prescription is for a schedule II opioid drug., 158, c... Start Date: 03/17/23 Stop Date: 12/12/23 Status: Ordered Simponi SmartJect 50 mg/0.5 mL subcutaneous solution See Instructions, INJECT 50MG SUBCUTANEOUSLY EVERY 28 DAYS, # 0.5 mL, 3 Refills, Maintenance, 08/06/23 11:46:00 EDT, [facility], 158, cm, 08/01/23 7:14:00 EDT, Height, 78, kg, 12/13/21 10:52:00 EDT, Dry Weight Start Date: 08/06/23 Status: Ordered traMADol 50 mg oral tablet 1 tablet = 50 mg, By Mouth, Every 6 hours, PRN severe pain, # 30 tablet, 1 Refills, Maintenance, 10/08/23 7:31:00 EDT, Tablet, [facility]/pharmacy #[id number], Partial fill upon patient request if the prescription is for a schedule II opioid drug., 158, cm, ... Start Date: 10/08/23 Status: Ordered Vitamin D3 5000 intl units oral tablet See Instructions, 1 tablet By Mouth weekly, # 100 tablet, 0 Refills, Maintenance, 02/11/23 14:46:00EST, Tablet, [facility]/pharmacy #[id number], Partial fill upon patient request if the prescription is for a schedule II opioid drug., 158, cm, 01/13/23 9:29:00 EDT... 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 Depression with [...] Team Personnel Name: Krystina Goldsmith RN Position: S RN Member Role: Primary Care Nurse Name: Lacey Ibarra NP Position: [facility] Associate Professional Member Role: PCP Address: Address: [address] [place] [id number]- Name: Edna Mallory Position: [facility] Outreach Member Role: Lifetime Consulting Physician Name: Silvia Whaley RN Position: [facility] Onco RN Member Role: Primary Care Nurse Name: Tarah De Leon RN Position: [facility] AMB Nurse Member Role: Primary Care Nurse Care Team Related Persons Name: JIMENEZ GARCIA Address: [address] [address] Name: WILLY GARCIA Address: [address] [address]
--- OUTSIDE RECORDS SUMMARY | 2023-12-12 20:28 | XMS_ITS | Continuity of Care Document ---
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
--- OUTSIDE RECORDS SUMMARY | 2023-12-12 20:28 | XMS_ITS | Continuity of Care Document ---
Author Organization [facility] Address [address] [place] [address]- Care Team Providers Care Mechanical Shovel Operator Name Role Phone Stacey Lacey GARCIA Primary Care Physician [phone] Encounter [facility] [place] Date(s): 10/07/23 - 11/06/23 [facility] Adult [address] [place] [address]- Allergies, Adverse Reactions, Alerts Substance Reaction Severity [...] Given tetanus/diphtheria/pertussis, acel(Tdap) 08/04/15 Given 1Result Comment: [id number] 2Result Comment: Booster Medications acetaminophen 325 mg [...] tablet, 6 Refills, Maintenance, 05/20/23 9:32:00 EST, [facility], Partial fill... Start Date: 05/20/23 [...] 6 Refills, Maintenance, 12/16/22 16:28:00 EDT, Tablet, [facility], Partial fill upon patient request if the prescription is for a schedule II opioid drug., 1 tablet By Mouth 2 times a da... Start Date: 12/16/22 Status: Ordered duloxetine 20 mg oral enteric coated capsule 2 capsule = 40 mg, By Mouth, Daily, # 180 capsule, 0 Refills, Maintenance, 09/16/23 11:45:00 EDT, EC Capsule, [facility]/pharmacy #[id number], 158, cm, 09/15/23 8:50:00 EDT, Height, 78, kg, 12/13/21 10:52:00 EDT,Dry Weight Start Date: 09/16/23 Stop Date: 12/15/23 Status: Ordered ferrous gluconate 324 mg oral tablet 1 tablet, By Mouth, 2 times a day, IF MENSTRUATING, INCREASE TO 3 TIMES DAILY. 30 DAY SUPPLY., # 70tablet, 1 Refills, Maintenance, 12/17/21 9:20:00 EDT, [id number], 158, cm, 12/13/21 10:52:00 EDT, Height, 78, kg, 12/13/21 10:52:00 EDT, Dry Weight Start Date: 12/17/21 Status: Ordered Flonase Allergy Relief 50 mcg/inh nasal spray See Instructions, 1 sprays Daily in each nostril, # 16 Gm, 0 Refills, Maintenance, 05/08/23 10:58:00 EST, [facility]/pharmacy #[id number], Partial fill upon patient request if the prescription is for a schedule II opioid drug., 158, cm, 01/13/23 9:29:00 EDT, Heig... Start Date: 05/08/23 Status: Ordered folic acid 1 mg oral tablet 1, tablet, By Mouth, Daily, EXCEPT THE DAY YOU TAKE METHOTREXATE., # 26 tablet, Refills 6, Maintenance, 03/11/23 15:05:00 EST, Route to Pharmacy Electronically, [id number], 158, cm, 01/13/23 9:29:00 EDT, Height, 78, [...] 10/29/23 16:04:00 EDT, Route to Pharmacy Electronically, [facility], 158, cm, 09/15/23 8:50:00 [...] Refills, Maintenance, 08/04/23 9:38:00 EDT, [id number], 158, cm, 08/01/23 7:14:00 EDT, Height, 78, kg, 12/13/21 10:52:00 EDT, Dry Weight Start Date: 08/04/23 Status: Ordered methotrexate 25 mg/mL injectable solution = 25 mg, Subcutaneous Injection, Every week, # 4 mL, 6 Refills, Maintenance, 12/16/22 17:05:00 EDT,[facility], Partial fill upon patient request [...] tablet, 3 Refills, Maintenance, 11/03/23 13:46:00 EDT, [facility], Partial fill upon patient request if the prescription is for a schedule II opioid drug., 158, cm, 09/15/23 8:50:00 EDT, Height,... Start Date: 11/03/23 Status: Ordered predniSONE 5 mg oral tablet 1 tablet = 5 mg, By Mouth, Daily, for 90 days, # 90 tablet, 2 Refills, Hard Stop 12/12/23 15:43:00 EDT, 03/17/23 15:43:00 EST, [facility], Partial fill upon patient request if the prescription is for a schedule II opioid drug., 158, c... Start Date: 03/17/23 Stop Date: 12/12/23 Status: Ordered Simponi SmartJect 50 mg/0.5 mL subcutaneous solution See Instructions, INJECT 50MG SUBCUTANEOUSLY EVERY 28 DAYS, # 0.5 mL, 3 Refills, Maintenance, 08/06/23 11:46:00 EDT, [facility], 158, cm, 08/01/23 7:14:00 EDT, Height, 78, kg, 12/13/21 10:52:00 EDT, Dry Weight Start Date: 08/06/23 Status: Ordered traMADol 50 mg oral tablet 1 tablet = 50 mg, By Mouth, Every 6 hours, PRN severe pain, # 60 tablet, 1 Refills, Maintenance, 10/30/23 12:06:00 EDT, Tablet, [facility]/pharmacy #[id number], Partial fill upon patient request if the prescription is for a schedule II opioid drug., 158, cm, 09/14... Start Date: 10/30/23 Status: Ordered Vitamin D3 5000 intl units oral tablet See Instructions, 1 tablet By Mouth weekly, # 100 tablet, 0 Refills, Maintenance, 02/11/23 14:46:00EST, Tablet, [facility]/pharmacy #[id number], Partial fill upon patient request if the prescription is for a schedule II opioid drug., 158, cm, 01/13/23 9:29:00 EDT... 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 Depression with [...] Team Personnel Name: Krystina Goldsmith RN Position: [facility] RN Member Role: Primary Care Nurse Name: Lacey Ibarra NP Position: [facility] PCO Associate Professional Member Role: PCP Address: Address: [address] [place] [id number] Name: Edna Mallory Position: [facility] Outreach Member Role: Lifetime Consulting Physician Name: Silvia Whaley RN Position: [facility] Onco RN Member Role: Primary Care Nurse Name: Tarah De Leon RN Position: [facility] AMB Nurse Member Role: Primary Care Nurse Care Team Related Persons Name: JIMENEZ GARCIA Address: home [address] [place] [id number] Name: WILLY GARCIA Address: home [address] [place] [id number]
--- OUTSIDE RECORDS SUMMARY | 2023-12-12 20:28 | XMS_ITS | Continuity of Care Document ---
Author Organization [facility] Address [address] [place] [address]- Care Team Providers Care Patient Financial Coordinator Name Role Phone Stacey Lacey GARCIA Primary Care Physician [phone] Encounter [facility] Date(s): 03/02/22 - 04/01/22 [facility] [address] [place] [id number] Attending Physician: Dennis López Admitting Physician: AdmtrDennis Referring Physician: Admtr Ar8 Allergies, Adverse Reactions, Alerts Substance Reaction [...] 0 Refills, Maintenance, 11/09/21 8:16:00 EDT, Tablet, [facility], Partial fill upon patient request [...] 0 Refills, Maintenance, 11/09/21 8:20:00 EDT, Capsule, [facility], Partial fill upon patient request if the prescription is... Start Date: 11/09/21 Status: Ordered duloxetine 20 mg oral enteric coated capsule 1 capsule = 20 mg, By Mouth, Daily at bedtime, # 30 capsule, 1 Refills, Maintenance, 10/16/21 13:16:00 EDT, EC Capsule, [facility], Partial fill upon patient request if the prescription is for a schedule II opioid drug., 160.02, cm, 0... Start Date: 10/16/21 Stop Date: 12/15/21 Status: Ordered ferrous gluconate 324 mg oral tablet 1 tablet, By Mouth, 2 times a day, IF MENSTRUATING, INCREASE TO 3 TIMES DAILY. 30 DAY SUPPLY., # 70tablet, 1 Refills, Maintenance, 12/17/21 9:20:00 EDT, [id number], 158, cm, 12/13/21 10:52:00 EDT, Height, 78, kg, 12/13/21 10:52:00 EDT, Dry Weight Start Date: 12/17/21 Status: Ordered folic acid 1 mg oral tablet 1, tablet, By Mouth, Daily, EXCEPT THE DAY YOU TAKE METHOTREXATE., # 26 tablet, Refills 6, Tot. Refills 6, Maintenance, 03/02/22 11:56:00 EST, Route to Pharmacy Electronically, [facility]/pharmacy #[id number], 158, cm, 03/02/22 11:30:00 EST, Height, 78, kg, ... Start Date: 03/02/22 Status: Ordered methotrexate 2.5 mg oral tablet See Instructions, 6 tablet By Mouth Every week, # 30 tablet, 6 Refills, Maintenance, 03/02/22 11:56:00 EST, [facility]/pharmacy #[id number], Partial fill upon patient request if the prescription is for a scheduleII opioid drug., 158, cm, 03/02/22 11:30:00 EST, He... Start Date: 03/02/22 Status: Ordered Milk of Magnesia Liquid 30 [...] Daily, # 30 tablet, 2 Refills, Maintenance, 03/10/22 10:53:00 EST, [facility], 158, cm, 03/02/22 11:30:00 EST, Height, 78, kg, 12/13/21 10:52:00 EDT, Dry Weight Start Date: 03/10/22 Status: Ordered senna 187 mg oral tablet 1 tablet = 8.6 mg, By Mouth, Daily at bedtime, PRN as needed for constipation, 0 Refills, Maintenance, 11/09/21 8:26:00 EDT, Tablet, Partial fill upon patient request if the prescription is for a schedule II opioid drug. Start Date: 11/09/21 Status: Ordered Simponi 50 mg/0.5 mL subcutaneous solution 0.5 mL = 50 mg, Subcutaneous Injection, Every 30 days, # 1 each, 3 Refills, Maintenance, 03/05/22 15:57:00 EST, Solution, [facility], Partial fill upon patient request if the prescription is for a schedule II opioid drug., 158, cm, 12... Start Date: 03/05/22 Status: Ordered Simponi SmartJect 50 mg/0.5 mL subcutaneous solution 0.5 mL = 50 mg, Subcutaneous Injection, Every 30 days, # 1 each, 0 Refills, Maintenance, 03/06/22 12:04:00 EST, Solution, [facility], Partial fill upon patient request if the prescription is for a schedule II opioid drug., 158, cm, 12... Start Date: 03/06/22 Status: Ordered Simponi SmartJect 50 mg/0.5 mL subcutaneous solution = 50 mg, Subcutaneous Infusion, Every 28 days, # 30 each, 3 Refills, Maintenance, 03/06/22 12:04:00EST, [facility], Partial fill upon patient request if the prescription is for a schedule II opioid drug., 158, cm, 03/02/22 11:30:00 E... 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 Depression with [...] Care team information Care Team Personnel Name: Sherine Umaña RN Position: [facility] RN Member Role: Primary Care Nurse Name: Krystina Goldsmith RN Position: [facility] RN Member Role: Primary Care Nurse Name: Lacey Ibarra NP Position: [facility] PCO Associate Professional Member Role: PCP Address: Address: [address] [place] [id number] Name: Edna Mallory Position: [facility] Outreach Member Role: Lifetime Consulting Physician Name: Silvia Whaley RN Position: [facility] Onco RN Member Role: Primary Care Nurse Name: Tarah De Leon RN Position: [facility] RN Member Role: Primary Care Nurse Care Team Related Persons Name: JIMENEZ GARCIA Address: [address] [address] Name: WILLY GARCIA Address: [address] [address]
--- OUTSIDE RECORDS SUMMARY | 2023-12-12 20:28 | XMS_ITS | Continuity of Care Document ---
Author Organization [facility] Address [address] [place] [address]- Care Team Providers Care Saw Tailer Name Role Phone Stacey Lacey GARCIA Primary Care Physician [phone] Encounter [facility] Date(s): 04/02/22 - 05/02/22 [facility] [address] [place] [id number] Allergies, Adverse Reactions, Alerts Substance [...] 0 Refills, Maintenance, 11/09/21 8:16:00 EDT, Tablet, [facility], Partial fill upon patient [...] 0 Refills, Maintenance, 11/09/21 8:20:00 EDT, Capsule, [facility], Partial fill upon patient request if the prescription is... Start Date: 11/09/21 Status: Ordered duloxetine 20 mg oral enteric coated capsule 1 capsule = 20 mg, By Mouth, Daily at bedtime, # 30 capsule, 1 Refills, Maintenance, 10/16/21 13:16:00 EDT, EC Capsule, [facility], Partial fill upon patient request if the prescription is for a schedule II opioid drug., 160.02, cm, 0... Start Date: 10/16/21 Stop Date: 12/15/21 Status: Ordered ferrous gluconate 324 mg oral tablet 1 tablet, By Mouth, 2 times a day, IF MENSTRUATING, INCREASE TO 3 TIMES DAILY. 30 DAY SUPPLY., # 70tablet, 1 Refills, Maintenance, 12/17/21 9:20:00 EDT, [facility] ST[id number], 158, cm, 12/13/21 10:52:00 EDT, Height, 78, kg, 12/13/21 10:52:00 EDT, Dry Weight Start Date: 12/17/21 Status: Ordered folic acid 1 mg oral tablet 1, tablet, By Mouth, Daily, EXCEPT THE DAY YOU TAKE METHOTREXATE., # 26 tablet, Refills 6, Tot. Refills 6, Maintenance, 03/02/22 11:56:00 EST, Route to Pharmacy Electronically, [facility]/pharmacy #[id number], 158, cm, 03/02/22 11:30:00 EST, Height, 78, kg, ... Start Date: 03/02/22 Status: Ordered methotrexate 2.5 mg oral tablet See Instructions, 6 tablet By Mouth Every week, # 30 tablet, 6 Refills, Maintenance, 03/02/22 11:56:00 EST, [facility]/pharmacy #[id number], Partial fill upon patient request [...] Status: Ordered predniSONE 5 mg oral tablet 2 tablet = 10 mg, By Mouth, Daily, # 60 tablet, 2 Refills, Maintenance, 04/03/22 16:03:00 EST, [facility], 158, cm, 03/02/22 11:30:00 EST, Height, 78, kg, 12/13/21 10:52:00 EDT, Dry Weight Start Date: 04/03/22 Stop Date: 07/02/22 Status: Ordered senna 187 mg oral tablet [...] 3 Refills, Maintenance, 03/05/22 15:57:00 EST, Solution, [facility], Partial fill upon patient request if the prescription is for a schedule II opioid drug., 158, cm, 12... Start Date: 03/05/22 Status: Ordered Simponi SmartJect 50 mg/0.5 mL subcutaneous solution 0.5 mL = 50 mg, Subcutaneous Injection, Every 30 days, # 1 each, 0 Refills, Maintenance, 03/06/22 12:04:00 EST, Solution, [facility], Partial fill upon patient request if the prescription is for a schedule II opioid drug., 158, cm, 12... Start Date: 03/06/22 Status: Ordered Simponi SmartJect 50 mg/0.5 mL subcutaneous solution = 50 mg, Subcutaneous Infusion, Every 28 days, # 30 each, 3 Refills, Maintenance, 03/06/22 12:04:00EST, [facility], Partial fill upon patient request if the prescription is for a schedule II opioid drug., 158, cm, 03/02/22 11:30:00 E... 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 Depression with [...] Team Personnel Name: Sherine Umaña RN Position: [facility] RN Member Role: Primary Care Nurse Name: Krystina Goldsmith RN Position: [facility] RN Member Role: Primary Care Nurse Name: Lacey Ibarra NP Position: [facility] PCO Associate Professional Member Role: PCP Address: Address: [address] [place] [id number] Name: Edna Mallory Position: [facility] Outreach Member Role: Lifetime Consulting Physician Name: Silvia Whaley RN Position: [facility] Onco RN Member Role: Primary Care Nurse Name: Tarah De Leon RN Position: [facility] RN Member Role: Primary Care Nurse Care Team Related Persons Name: JIMENEZ GARCIA Address: home [address] [place] [id number] Name: WILLY GARCIA Address: home [address] [place] [id number]
--- OUTSIDE RECORDS SUMMARY | 2023-12-12 20:28 | XMS_ITS | Continuity of Care Document ---
Author Organization 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
--- OUTSIDE RECORDS SUMMARY | 2023-12-12 20:29 | XMS_ITS | Continuity of Care Document ---
Author Organization [facility] Reed Kali Address [address] [place] [address]- Care Team Providers Care Lithographic Retoucher Apprentice Name Role Phone Stacey Lacey GARCIA Primary Care Physician Encounter [facility] Date(s): 12/27/20 - 01/26/21 [facility] Adult [address] [place] [address]- Allergies, Adverse Reactions, Alerts Substance Reaction Severity [...] condition(Confirmed) Active History of hip replacement(Confirmed) Active longterm systemic 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
--- OUTSIDE RECORDS SUMMARY | 2023-12-12 20:29 | XMS_ITS | Continuity of Care Document ---
Author Organization [facility] Address [address] [place] [address]- Care Team Providers Care Bilingual Medical Assistant Name Role Phone Stacey Lacey GARCIA Primary Care Physician [phone] Encounter [facility] Date(s): 12/09/22 - 01/08/23 [facility] [address] [place] [address]- Allergies, Adverse Reactions, Alerts Substance Reaction Severity [...] opioid drug. Start Date: 11/09/21 Status: Ordered BD 1ML 25G 1 inch [...] 6 Refills, Maintenance, 12/16/22 16:28:00 EDT, Tablet, [facility], Partial fill upon patient request if the prescription is for a schedule II opioid drug., 1 tablet By Mouth 2 times a da... Start Date: 12/16/22 Status: Ordered cyclobenzaprine 5 mg oral tablet 1 tablet = 5 mg, By Mouth, Daily at bedtime, # 30 tablet, 3 Refills, Acute 01/18/23 14:00:00 EDT, 12/19/22 14:08:00 EDT, [facility], Partial fill upon patient request if the prescription is for a schedule II opioid drug., 158, cm, .. Start Date: 12/19/22 Stop Date: 01/18/23 Status: Ordered ferrous gluconate 324 mg oral tablet 1 tablet, By Mouth, 2 times a day, IF MENSTRUATING, INCREASE TO 3 TIMES DAILY. 30 DAY SUPPLY., # 70tablet, 1 Refills, Maintenance, 12/17/21 9:20:00 EDT, [facility] STORE [id number], 158, cm, 12/13/21 10:52:00 EDT, Height, 78, kg, 12/13/21 10:52:00 EDT, Dry Weight Start Date: 12/17/21 Status: Ordered folic acid 1 mg oral tablet 1, tablet, By Mouth, Daily, EXCEPT THE DAY YOU TAKE METHOTREXATE., # 26 tablet, Refills 6, Tot. Refills 6, Maintenance, 03/02/22 11:56:00 EST, Route to Pharmacy Electronically, [facility]/pharmacy #[id number], 158, cm, 03/02/22 11:30:00 EST, Height, 78, kg, ... Start Date: 03/02/22 Status: Ordered meloxicam 15 mg oral tablet 1 tablet, By Mouth, Every other day, # 15 tablet, 4 Refills, Maintenance, 11/14/22 8:23:00 EDT, [id number], 158, cm, 07/17/22 8:31:00 EDT, Height, 78, kg, 12/13/21 10:52:00 EDT, Dry Weight Start Date: 11/14/22 Status: Ordered methotrexate 25 mg/mL injectable solution = 25 mg, Subcutaneous Injection, Every week, # 4 mL, 6 Refills, Maintenance, 12/16/22 17:05:00 EDT,[facility], Partial fill upon patient [...] drug. Start Date: 11/09/21 Status: Ordered predniSONE 2.5 mg oral tablet 3 tablet = 7.5 mg, By Mouth, Daily, # 90 tablet, 0 Refills, Maintenance, 12/16/22 16:26:00 EDT, [facility], Partial fill upon patient request if the prescription is for a schedule IIopioid drug., 158, cm, 11/21/22 9:48:00 EDT, Height... Start Date: 12/16/22 Status: Ordered predniSONE 5 mg oral tablet 1 tablet = 5 mg, By Mouth, Daily, # 30 tablet, 4 Refills, Maintenance, 10/18/22 15:43:00 EDT, [facility], Partial fill upon patient request if the prescription is for a schedule II opioid drug., 158, cm, 07/17/22 8:31:00 EDT, Height,... Start Date: 10/18/22 Stop Date: 03/17/23 Status: Ordered Simponi 50 mg/0.5 mL subcutaneous solution 0.5 mL = 50 mg, Subcutaneous Injection, Every 30 days, # 1 each, 3 Refills, Maintenance, 03/05/22 15:57:00 EST, Solution, [facility], Partial fill upon patient request if the prescription is for a schedule II opioid drug., 158, cm, 12... Start Date: 03/05/22 Status: Ordered Simponi SmartJect 50 mg/0.5 mL subcutaneous solution 0.5 mL = 50 mg, Subcutaneous Injection, Every 30 days, # 1 each, 0 Refills, Maintenance, 03/06/22 12:04:00 EST, Solution, [facility], Partial fill upon patient request if the prescription is for a schedule II opioid drug., 158, cm, 12... Start Date: 03/06/22 Status: Ordered Simponi SmartJect 50 mg/0.5 mL subcutaneous solution = 50 mg, Subcutaneous Infusion, Every 28 days, # 30 each, 3 Refills, Maintenance, 03/06/22 12:04:00EST, [facility], Partial fill upon patient request if the prescription is for a schedule II opioid drug., 158, cm, 03/02/22 11:30:00 E... Start Date: 03/06/22 Status: Ordered Problem List Condition Confirmation Course Effective Dates Status H ealth Status Informant History of hip replacement Confirmed Active Iron deficiency anemia Confirmed Active custodial systemic steroid user Confirmed Active Depression with anxiety Confirmed Active avascular necrosis knees Confirmed Active Polyarthritis Confirmed Active Prolonged QT interval Confirmed Active Psoriasis Confirmed Active Rheumatoid arthritis Confirmed Active Rheumatoid arthritis, erosive, seronegative Confirmed Active Severe obesity (BMI 35.0-39.9) with comorbidity Confirmed Active Lupus Confirmed Active Thrombocytosis Confirmed Active Urge incontinence Confirmed Active Uterine fibroid Confirmed Active Vitamin D deficiency Confirmed Active Social History Social History Type Response Smoking Status Never smoker entered on: 09/07/15 Sex Patient Care team information Care Team Personnel Name: Sherine Umaña RN Position: [facility] RN Member Role: Primary Care Nurse Name: Krystina Goldsmith RN Position: [facility] RN Member Role: Primary Care Nurse Name: Lacey Ibarra NP Position: [facility] PCO Associate Professional Member Role: PCP Address: Address: [address] [place] [id number] Name: Edna Mallory Position: [facility] Outreach Member Role: Lifetime Consulting Physician Name: Silvia Whaley RN Position: [facility] Onco RN Member Role: Primary Care Nurse Name: Tarah De Leon RN Position: [facility] SN RN Member Role: Primary Care Nurse Care Team Related Persons Name: JIMENEZ GARCIA Address: home [address] [place] [id number] Name: WILLY GARCIA Address: home [address] [place] [id number]
--- OUTSIDE RECORDS SUMMARY | 2023-12-12 20:29 | XMS_ITS | Continuity of Care Document ---
Author Organization [facility] Address [address] [facility] [place] [address] [place] [address]- Care Team Providers Care Desk Maker Name Role Phone Stacey FOOD SERVICE ATTENDANT, Lacey Thomas Primary Care Physician Encounter 08/08/22 - 08/15/22 [facility] [address], [address] [place] [address]- Attending Physician: Abe Davis MD Admitting Physician: Abe Davis MD Referring Physician: Abe Davis MD Allergies, Adverse Reactions, Alerts Substance Reaction [...] opioid drug. Start Date: 11/09/21 Status: Ordered docusate sodium 50 mg oral capsule 2 capsule = 100 mg, By Mouth, 2 times a day, Take 1 tablet two times a day with plenty of water, # 120 capsule, 0 Refills, Maintenance, 11/09/21 8:20:00 EDT, Capsule, [facility], Partial fill upon patient request if the prescription is... Start Date: 11/09/21 Status: Ordered duloxetine 20 mg oral enteric coated capsule 1 capsule = 20 mg, By Mouth, Daily at bedtime, # 30 capsule, 1 Refills, Maintenance, 10/16/21 13:16:00 EDT, EC Capsule, [facility], Partial fill upon patient request if the prescription is for a schedule II opioid drug., 160.02, cm, 0... Start Date: 10/16/21 Stop Date: 12/15/21 Status: Ordered ferrous gluconate 324 mg oral tablet 1 tablet, By Mouth, 2 times a day, IF MENSTRUATING, INCREASE TO 3 TIMES DAILY. 30 DAY SUPPLY., # 70tablet, 1 Refills, Maintenance, 12/17/21 9:20:00 EDT, [facility] STORE [id number], 158, cm, 12/13/21 10:52:00 EDT, Height, 78, kg, 12/13/21 10:52:00 EDT, Dry Weight Start Date: 12/17/21 Status: Ordered folic acid 1 mg oral tablet 1, tablet, By Mouth, Daily, EXCEPT THE DAY YOU TAKE METHOTREXATE., # 26 tablet, Refills 6, Tot. Refills 6, Maintenance, 03/02/22 11:56:00 EST, Route to Pharmacy Electronically, [facility]/pharmacy #[id number], 158, cm, 03/02/22 11:30:00 EST, Height, 78, kg, ... Start Date: 03/02/22 Status: Ordered meloxicam 15 mg oral tablet See Instructions, Take 1 tablet every other day, # 15 tablet, 4 Refills, Maintenance, 07/17/22 8:59:00 EDT, [facility]/pharmacy #[id number], Partial fill upon patient request if the prescription is for a scheduleII opioid drug., 158, cm, 07/17/22 8:31:00 EDT, Hei... Start Date: 07/17/22 Status: Ordered methotrexate 2.5 mg oral tablet See Instructions, 6 tablet By Mouth Every week, # 30 tablet, 6 Refills, Maintenance, 03/02/22 11:56:00 EST, [facility]/pharmacy #[id number], Partial fill upon patient request [...] Daily, # 30 tablet, 4 Refills, Maintenance, 08/09/22 17:17:00 EDT, [facility]/pharmacy #[id number], Partial fill upon patient request if the prescription is for a schedule II opioid drug., 158, cm, 07/17/22 8:31:00 EDT, Height, 78, kg, 0... Start Date: 08/09/22 Stop Date: 01/06/23 Status: Ordered senna 187 mg oral tablet [...] 3 Refills, Maintenance, 03/05/22 15:57:00 EST, Solution, [facility], Partial fill upon patient request if the prescription is for a schedule II opioid drug., 158, cm, 12... Start Date: 03/05/22 Status: Ordered Simponi SmartJect 50 mg/0.5 mL subcutaneous solution 0.5 mL = 50 mg, Subcutaneous Injection, Every 30 days, # 1 each, 0 Refills, Maintenance, 03/06/22 12:04:00 EST, Solution, [facility], Partial fill upon patient request if the prescription is for a schedule II opioid drug., 158, cm, 12... Start Date: 03/06/22 Status: Ordered Simponi SmartJect 50 mg/0.5 mL subcutaneous solution = 50 mg, Subcutaneous Infusion, Every 28 days, # 30 each, 3 Refills, Maintenance, 03/06/22 12:04:00EST, [facility], Partial fill upon patient request if the prescription is for a schedule II opioid drug., 158, cm, 03/02/22 11:30:00 E... 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 Active Depression with anxiety Confirmed Active Obese class I Confirmed Active avascular necrosis knees Confirmed Active Polyarthritis Confirmed Active Prolonged QT interval Confirmed Active Psoriasis Confirmed Active Rheumatoid arthritis, erosive, seronegative Confirmed Active Lupus Confirmed Active Thrombocytosis Confirmed Active Urge incontinence Confirmed Active Uterine fibroid Confirmed Active Vitamin D deficiency Confirmed Active Results Radiology Reports * Exam Date Time Procedure Performing Provider Status 08/08/22 2:06 PM Dexa Bone Density (Axial) Ward Thomas; Auth (Verified) Notes: (Dexa Bone Density (Axial)) Reason For Exam: Rheumatoid Arthritis RESULT: DEXA BONE DENSITY (AXIAL) Bone Density Report Name: EDGAR GARCIA Age: 47 Sex: Female Ethnicity: White Date of : 1975 Indication: RHEUMATOID ARTHRITIS. Referring Provider: ABE DAVIS Study: Bone densitometry was performed. Exam Date: August 08, 2022 Accession number: [id number] Bone Density: Region BMD T-score Z-score Classification AP Spine(L1-L4) 0.861 -1.7 -1.1 Osteopenia Femoral Neck (Left) 0.730 -1.1 -0.5 Osteopenia Total Hip (Left) 0.684 -2.1 -1.7 Osteopenia World Health Organization criteria for BMD impression classify patients as: Normal (T-score at or above -1.0), Osteopenia (T-score between -1.0 and -2.5), or Osteoporosis (T-score at or below -2.5). 10-year Fracture Risk: FRAX not reported because: Premenopausal woman Previous Exams: Region Exam Age BMD T-score BMD Change BMD Change Date g/cm2 vs Baseline vs Previous AP Spine(L1-L4) 08/08/2022 47 0.861 -1.7 -12.2%* -12.2%* 10/21/2019 44 0.981 -0.6 Total Hip(Left) 08/08/2022 47 0.684 -2.1 -27.8%* -27.8%* 10/21/2019 44 0.948 0.0 Femoral Neck(Left) 08/08/2022 47 0.730 -1.1 -18.0%* -18.0%* 10/21/2019 44 0.890 0.4 *Denotes significance at 95% confidence level, LSC for AP Spine = 0.022 g/cm2, LSC for Total Hip = 0.027 g/cm2 Clinical Information Provided by Patient: Has taken Glucocorticoids Has rheumatoid arthritis Has used the following medications: Vitamin D Patient maximum height was 63.0 Menopause Age: 47 Onset of menses at age 10 Premenopausal Number of children 1 Impression: NORMAL BMD FOR AGE. (NORMAL BMD IS DEFINED Z-SCORE > -2.0). Reported by: Kulwinder Alas M.D. on 08/08/2022 4:24:00 PM. Dictated By: Kulwinder Alas MD Dictated Date/Time: 08/08/22 4:25 pm Reviewed By: Kulwinder Alas MD Signed By: Kulwinder Alas MD Signed Date/Time: 08/08/22 4:25 pm Transcribed By: TED Transcribed Date/Time: 08/08/22 4:25 pm Social History Social History Type Response Smoking Status Never smoker entered on: 09/07/15 Sex DXA Skeletal system.axial Views for bone density * [facility] , CIS S: TRANSCRIBE [facility] , CIS S: TRANSCRIBE, VERIFY Kulwinder Alas MD: VERIFY, VERIFY Kulwinder Alas MD: VERIFY Event Display: Result: Authored Date: [id number] Bone Density Report Name: EDGAR GARCIA Age: 47 Sex: Female Ethnicity: White Date of : 1975 Indication: RHEUMATOID ARTHRITIS. Referring Provider: ABE DAVIS Study: Bone densitometry was performed. Exam Date: August 08, 2022 Accession number: [id number] Bone Density: Region BMD T-score Z-score Classification AP Spine(L1-L4) 0.861 -1.7 -1.1 Osteopenia Femoral Neck (Left) 0.730 -1.1 -0.5 Osteopenia Total Hip (Left) 0.684 -2.1 -1.7 Osteopenia World Health Organization criteria for BMD impression classify patients as: Normal (T-score at or above -1.0), Osteopenia (T-score between -1.0 and -2.5), or Osteoporosis (T-score at or below -2.5). 10-year Fracture Risk: FRAX not reported because: Premenopausal woman Previous Exams: Region Exam Age BMD T-score BMD Change BMD Change Date g/cm2 vs Baseline vs Previous AP Spine(L1-L4) 08/08/2022 47 0.861 -1.7 -12.2%* -12.2%* 10/21/2019 44 0.981 -0.6 Total Hip(Left) 08/08/2022 47 0.684 -2.1 -27.8%* -27.8%* 10/21/2019 44 0.948 0.0 Femoral Neck(Left) 08/08/2022 47 0.730 -1.1 -18.0%* -18.0%* 10/21/2019 44 0.890 0.4 *Denotes significance at 95% confidence level, LSC for AP Spine = 0.022 g/cm2, LSC for Total Hip = 0.027 g/cm2 Clinical Information Provided by Patient: Has taken Glucocorticoids Has rheumatoid arthritis Has used the following medications: Vitamin D Patient maximum height was 63.0 Menopause Age: 47 Onset of menses at age 10 Premenopausal Number of children 1 Impression: NORMAL BMD FOR AGE. (NORMAL BMD IS DEFINED Z-SCORE > -2.0). Reported by: Kulwinder Alas M.D. on 08/08/2022 4:24:00 PM. Dictated By: Kulwinder Alas MD Dictated Date/Time: 08/08/22 4:25 pm Reviewed By: Kulwinder Alas MD Signed By: Kulwinder Alas MD Signed Date/Time: 08/08/22 4:25 pm Transcribed By: TED Transcribed Date/Time: 08/08/22 4:25 pm Patient Care team information Care Team Personnel Name: Sherine Umaña RN Position: [facility] RN Member Role: Primary Care Nurse Name: Krystina Goldsmith RN Position: [facility] RN Member Role: Primary Care Nurse Name: Lacey Ibarra NP Position: [facility] PCO Associate Professional Member Role: PCP Address: Address: [address] [place] [id number]- Name: Edna Mallory Position: [facility] Outreach Member Role: Lifetime Consulting Physician Name: Silvia Whaley RN Position: [facility] Onco RN Member Role: Primary Care Nurse Care Team Related Persons Name: JIMENEZ GARCIA Address: home [address] [place] [id number] Name: WILLY GARCIA Address: home [address] [place] [id number]
--- OUTSIDE RECORDS SUMMARY | 2023-12-12 20:29 | XMS_ITS | Continuity of Care Document ---
Author Organization [facility] Address [address] [place] [address]- Care Team Providers Care Physical Therapy Technician Name Role Phone Stacey Lacey GARCIA Primary Care Physician Encounter [facility] Date(s): 06/29/19 - 07/09/19 [facility] [address] [place] [phone]- [facility] Attending Physician: Dennis López Admitting Physician: AdmDennis carrizales Referring Physician: AdmtrDennis Allergies, Adverse Reactions, Alerts Substance Reaction Severity Status sulfADIAZINE Active Immunizations Given and Recorded Vaccine Date Status Refusal Reason Measles/Mumps/Rubella Virus Vaccine 10/04/15 Given tetanus/diphtheria/pertussis, acel(Tdap) 08/04/15 Given Medications celecoxib 100 mg oral capsule 1 capsule = 100 mg, By Mouth, 2 times a day, # 60 capsule, 1 Refills, Maintenance, 05/31/19 14:56:00 EST, Capsule, [id number], 161.5, cm, 05/31/19 14:25:00 EST, Height Start Date: 05/31/19 Stop Date: 07/30/19 Status: Ordered cholecalciferol 10,000 intl units oral capsule 1 capsule = 10,000 International_Units, By Mouth, Every week, # 5 capsule, 5 Refills, Maintenance, 11/19/16 10:57:56, Capsule Start Date: 11/19/16 Status: Ordered triamcinolone 0.1% topical cream 1 application, Topically, 3 times a day, # 60 Gm, 1 Refills, Maintenance, 11/19/17 7:43:01 EDT, Cream, 1 application Topically 3 times a day Start Date: 11/19/17 Status: Ordered Tylenol Caplet = 650 mg, [...]
--- OUTSIDE RECORDS SUMMARY | 2023-12-12 20:29 | XMS_ITS | Continuity of Care Document ---
Author Organization [facility] Reed Kali Address [address] [place] [address]- Care Team Providers Care Iron Setter Name Role Phone Stacey Lacey GARCIA Primary Care Physician Encounter [facility] Date(s): 10/29/23 - 11/28/23 [facility] [address] [place] [address]- Allergies, Adverse Reactions, Alerts Substance Reaction Severity [...] Given tetanus/diphtheria/pertussis, acel(Tdap) 08/04/15 Given 1Result Comment: [id number] 2Result Comment: Booster Medications acetaminophen 325 mg [...] day, # 4 tablet, 6 Refills, Maintenance, 11/26/23 14:07:00 EDT, [facility], Partial fill... Start Date: 11/26/23 Status: Ordered BD 1ML 25G 1 inch [...] Refills, Maintenance, 12/16/22 16:28:00 EDT, Tablet, [facility], Partial fill upon patient request if the prescription is for a schedule II opioid drug., 1 tablet By Mouth 2 times a da... Start Date: 12/16/22 Status: Ordered duloxetine 20 mg oral enteric coated capsule 2 capsule = 40 mg, By Mouth, Daily, # 180 capsule, 0 Refills, Maintenance, 09/16/23 11:45:00 EDT, EC Capsule, [facility]/pharmacy #[id number], 158, cm, 09/15/23 8:50:00 EDT, Height, 78, kg, 12/13/21 10:52:00 EDT,Dry Weight Start Date: 09/16/23 Stop Date: 12/15/23 Status: Ordered ferrous gluconate 324 mg oral tablet 1 tablet, By Mouth, 2 times a day, IF MENSTRUATING, INCREASE TO 3 TIMES DAILY. 30 DAY SUPPLY., # 70tablet, 1 Refills, Maintenance, 12/17/21 9:20:00 EDT, [id number], 158, cm, 12/13/21 10:52:00 EDT, Height, 78, kg, 12/13/21 10:52:00 EDT, Dry Weight Start Date: 12/17/21 Status: Ordered Flonase Allergy Relief 50 mcg/inh nasal spray See Instructions, 1 sprays Daily in each nostril, # 16 Gm, 0 Refills, Maintenance, 05/08/23 10:58:00 EST, [facility]/pharmacy #[id number], Partial fill upon patient request if the prescription is for a schedule II opioid drug., 158, cm, 01/13/23 9:29:00 EDT, Heig... Start Date: 05/08/23 Status: Ordered folic acid 1 mg oral tablet 1, tablet, By Mouth, Daily, EXCEPT THE DAY YOU TAKE METHOTREXATE., # 26 tablet, Refills 6, Maintenance, 03/11/23 15:05:00 EST, Route to Pharmacy Electronically, [id number], 158, cm, 01/13/23 9:29:00 EDT, Height, 78, [...] 10/29/23 16:04:00 EDT, Route to Pharmacy Electronically, [facility], 158, cm, 09/15/23 8:50:00 [...] Refills, Maintenance, 08/04/23 9:38:00 EDT, [id number], 158, cm, 08/01/23 7:14:00 EDT, Height, 78, kg, 12/13/21 10:52:00 EDT, Dry Weight Start Date: 08/04/23 Status: Ordered methotrexate 25 mg/mL injectable solution = 25 mg, Subcutaneous Injection, Every week, # 4 mL, 6 Refills, Maintenance, 12/16/22 17:05:00 EDT,[facility], Partial fill upon patient request [...] tablet, 3 Refills, Maintenance, 11/03/23 13:46:00 EDT, [facility], Partial fill upon patient request if the prescription is for a schedule II opioid drug., 158, cm, 09/15/23 8:50:00 EDT, Height,... Start Date: 11/03/23 Status: Ordered predniSONE 5 mg oral tablet 1 tablet = 5 mg, By Mouth, Daily, for 90 days, # 90 tablet, 2 Refills, Hard Stop 12/12/23 15:43:00 EDT, 03/17/23 15:43:00 EST, [facility], Partial fill upon patient request if the prescription is for a schedule II opioid drug., 158, c... Start Date: 03/17/23 Stop Date: 12/12/23 Status: Ordered Simponi SmartJect 50 mg/0.5 mL subcutaneous solution See Instructions, INJECT 50MG SUBCUTANEOUSLY EVERY 28 DAYS, # 0.5 mL, 3 Refills, Maintenance, 08/06/23 11:46:00 EDT, [facility], 158, cm, 08/01/23 7:14:00 EDT, Height, 78, kg, 12/13/21 10:52:00 EDT, Dry Weight Start Date: 08/06/23 Status: Ordered traMADol 50 mg oral tablet 1 tablet = 50 mg, By Mouth, Every 6 hours, PRN severe pain, # 60 tablet, 1 Refills, Maintenance, 10/30/23 12:06:00 EDT, Tablet, [facility]/pharmacy #[id number], Partial fill upon patient request if the prescription is for a schedule II opioid drug., 158, cm, 09/14... Start Date: 10/30/23 Status: Ordered Vitamin D3 5000 intl units oral tablet See Instructions, 1 tablet By Mouth weekly, # 100 tablet, 0 Refills, Maintenance, 02/11/23 14:46:00EST, Tablet, [facility]/pharmacy #[id number], Partial fill upon patient request if the prescription is for a schedule II opioid drug., 158, cm, 01/13/23 9:29:00 EDT... 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 Active long-term systemic steroid user Confirmed Active Depression with [...] Team Personnel Name: Krystina Goldsmith RN Position: [facility] RN Member Role: Primary Care Nurse Name: Lacey Ibarra NP Position: [facility] PCO Associate Professional Member Role: PCP Address: Address: [address] [place] [id number] Name: Edna Mallory Position: [facility] Outreach Member Role: Lifetime Consulting Physician Name: Silvia Whaley RN Position: [facility] Onco RN Member Role: Primary Care Nurse Name: Tarah De Leon RN Position: [facility] AMB Nurse Member Role: Primary Care Nurse Care Team Related Persons Name: JIMENEZ GARCIA Address: home [address] [place] [id number] Name: WILLY GARCIA Address: home [address] [place] [id number]
--- OUTSIDE RECORDS SUMMARY | 2023-12-12 20:29 | XMS_ITS | Continuity of Care Document ---
Author Organization [facility] Address [address] [place] [phone]- Care Team Providers Care Vice President Quality Assurance Name Role Phone Lacey Ibarra NP Primary Care Physician Encounter [facility] Date(s): 03/13/22 - 11/27/23 [facility] Care [address] [place] [id number] Discharge Disposition: A-D/C Home Attending Physician: Nura Mcdaniel MD Admitting Physician: Nura Mcdaniel MD Referring Physician: Lacey Ibarra NP Allergies, Adverse Reactions, Alerts Substance Reaction Severity [...] Given tetanus/diphtheria/pertussis, acel(Tdap) 08/04/15 Given 1Result Comment: [id number] 2Result Comment: Booster Medications acetaminophen 325 mg [...] tablet, 6 Refills, Maintenance, 11/26/23 14:07:00 EDT, [facility], Partial fill... Start Date: 11/26/23 [...] 6 Refills, Maintenance, 12/16/22 16:28:00 EDT, Tablet, [facility], Partial fill upon patient request if the prescription is for a schedule II opioid drug., 1 tablet By Mouth 2 times a da... Start Date: 12/16/22 Status: Ordered duloxetine 20 mg oral enteric coated capsule 2 capsule = 40 mg, By Mouth, Daily, # 180 capsule, 0 Refills, Maintenance, 09/16/23 11:45:00 EDT, EC Capsule, [facility]/pharmacy #[id number], 158, cm, 09/15/23 8:50:00 EDT, Height, 78, kg, 12/13/21 10:52:00 EDT,Dry Weight Start Date: 09/16/23 Stop Date: 12/15/23 Status: Ordered ferrous gluconate 324 mg oral tablet 1 tablet, By Mouth, 2 times a day, IF MENSTRUATING, INCREASE TO 3 TIMES DAILY. 30 DAY SUPPLY., # 70tablet, 1 Refills, Maintenance, 12/17/21 9:20:00 EDT, [id number], 158, cm, 12/13/21 10:52:00 EDT, Height, 78, kg, 12/13/21 10:52:00 EDT, Dry Weight Start Date: 12/17/21 Status: Ordered Flonase Allergy Relief 50 mcg/inh nasal spray See Instructions, 1 sprays Daily in each nostril, # 16 Gm, 0 Refills, Maintenance, 05/08/23 10:58:00 EST, [facility]/pharmacy #[id number], Partial fill upon patient request if the prescription is for a schedule II opioid drug., 158, cm, 01/13/23 9:29:00 EDT, [facility]... Start Date: 05/08/23 Status: Ordered folic acid 1 mg oral tablet 1, tablet, By Mouth, Daily, EXCEPT THE DAY YOU TAKE METHOTREXATE., # 26 tablet, Refills 6, Maintenance, 03/11/23 15:05:00 EST, Route to Pharmacy Electronically, [id number], 158, cm, 01/13/23 9:29:00 EDT, Height, 78, [...] tablet, 4 Refills, Maintenance, 08/04/23 9:38:00 EDT, [facility] [id number], 158, cm, 08/01/23 7:14:00 EDT, Height, 78, kg, 12/13/21 10:52:00 EDT, Dry Weight Start Date: 08/04/23 Status: Ordered methotrexate 25 mg/mL injectable solution = 25 mg, Subcutaneous Injection, Every week, # 4 mL, 6 Refills, Maintenance, 12/16/22 17:05:00 EDT,[facility], Partial fill upon patient request [...] tablet, 3 Refills, Maintenance, 11/03/23 13:46:00 EDT, [facility], Partial fill upon patient request if the prescription is for a schedule II opioid drug., 158, cm, 09/15/23 8:50:00 EDT, Height,... Start Date: 11/03/23 Status: Ordered predniSONE 5 mg oral tablet 1 tablet = 5 mg, By Mouth, Daily, for 90 days, # 90 tablet, 2 Refills, Hard Stop 12/12/23 15:43:00 EDT, 03/17/23 15:43:00 EST, [facility], Partial fill upon patient request if the prescription is for a schedule II opioid drug., 158, c... Start Date: 03/17/23 Stop Date: 12/12/23 Status: Ordered Simponi SmartJect 50 mg/0.5 mL subcutaneous solution See Instructions, INJECT 50MG SUBCUTANEOUSLY EVERY 28 DAYS, # 0.5 mL, 3 Refills, Maintenance, 08/06/23 11:46:00 EDT, [facility], 158, cm, 08/01/23 7:14:00 EDT, Height, 78, kg, 12/13/21 10:52:00 EDT, Dry Weight Start Date: 08/06/23 Status: Ordered traMADol 50 mg oral tablet 1 tablet = 50 mg, By Mouth, Every 6 hours, PRN severe pain, # 60 tablet, 1 Refills, Maintenance, 10/30/23 12:06:00 EDT, Tablet, [facility]/pharmacy #[id number], Partial fill upon patient request if the prescription is for a schedule II opioid drug., 158, cm, 09/14... Start Date: 10/30/23 Status: Ordered Vitamin D3 5000 intl units oral tablet See Instructions, 1 tablet By Mouth weekly, # 100 tablet, 0 Refills, Maintenance, 02/11/23 14:46:00EST, Tablet, [id number], Partial fill upon patient request if the prescription is for a schedule II opioid drug., 158, cm, 01/13/23 9:29:00 EDT... 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 RN Member Role: Primary Care Nurse Name: Lacey Ibarra NP Position: [facility] PCO Associate Professional Member Role: PCP Address: Address: [address] [place] [id number] Name: Edna Mallory Position: [facility] Outreach Member Role: Lifetime Consulting Physician Name: Silvia Whaley RN Position: [facility] Onco RN Member Role: Primary Care Nurse Name: Tarah De Leon RN Position: [facility] AMB Nurse Member Role: Primary Care Nurse Care Team Related Persons Name: JIMENEZ GARCIA Address: home [address] [place] [id number] Name: WILLY GARCIA Address: home [address] [place] [id number]
--- OUTSIDE RECORDS SUMMARY | 2023-12-12 20:29 | XMS_ITS | Continuity of Care Document ---
Author Organization [facility] Address [address] [place] [address]- Care Team Providers Care Solutions Development Analyst Name Role Phone Stacey GROUND SUPPORT AGENT, Lacey Thomas Primary Care Physician [phone] Encounter [facility] Date(s): 08/18/23 - 09/17/23 [facility] Adult [address] [place] [address]- Allergies, Adverse Reactions, Alerts Substance Reaction Severity [...] Given tetanus/diphtheria/pertussis, acel(Tdap) 08/04/15 Given 1Result Comment: [id number] 2Result Comment: Booster Medications acetaminophen 325 mg [...] tablet, 6 Refills, Maintenance, 05/20/23 9:32:00 EST, [facility], Partial fill... Start Date: [...] 12/13/21 10:52:00... Start Date: 09/10/23 Status: Ordered Caltrate 600 + D oral tablet 1 tablet, By Mouth, 2 times a day, # 60 tablet, 6 Refills, Maintenance, 12/16/22 16:28:00 EDT, Tablet, [facility], Partial fill upon patient request if the prescription is for a schedule II opioid drug., 1 tablet By Mouth 2 times a da... Start Date: 12/16/22 Status: Ordered duloxetine 20 mg oral enteric coated capsule 2 capsule = 40 mg, By Mouth, Daily, # 180 capsule, 0 Refills, Maintenance, 09/16/23 11:45:00 EDT, EC Capsule, [facility]/pharmacy #[id number], 158, cm, 09/15/23 8:50:00 EDT, Height, 78, kg, 12/13/21 10:52:00 EDT,Dry Weight Start Date: 09/16/23 Stop Date: 12/15/23 Status: Ordered ferrous gluconate 324 mg oral tablet 1 tablet, By Mouth, 2 times a day, IF MENSTRUATING, INCREASE TO 3 TIMES DAILY. 30 DAY SUPPLY., # 70tablet, 1 Refills, Maintenance, 12/17/21 9:20:00 EDT, [id number], 158, cm, 12/13/21 10:52:00 EDT, Height, 78, kg, 12/13/21 10:52:00 EDT, Dry Weight Start Date: 12/17/21 Status: Ordered Flonase Allergy Relief 50 mcg/inh nasal spray See Instructions, 1 sprays Daily in each nostril, # 16 Gm, 0 Refills, Maintenance, 05/08/23 10:58:00 EST, [facility]/pharmacy #[id number], Partial fill upon patient request if the prescription is for a schedule II opioid drug., 158, cm, 01/13/23 9:29:00 EDT, [facility]... Start Date: 05/08/23 Status: Ordered folic acid 1 mg oral tablet 1, tablet, By Mouth, Daily, EXCEPT THE DAY YOU TAKE METHOTREXATE., # 26 tablet, Refills 6, Maintenance, 03/11/23 15:05:00 EST, Route to Pharmacy Electronically, [id number], 158, cm, 01/13/23 9:29:00 EDT, Height, 78, [...] 05/19/23 16:26:00 EST, Route to Pharmacy Electronically, [facility], Partial fill upon patient request if the prescription is for a lucho... Start Date: 05/19/23 Status: Ordered Insulin Syringe, BD Ultra-Fine 1 cc 30 G x 12.7 mm (1/2in) See Instructions, # 6 each, Maintenance, use one syringe with each medication administration every 28 days, 09/04/23 9:17:00 EDT, Supply, 158, cm, 05/03/24 7:14:00 EDT, Height, 78, kg, 12/13/21 10:52:00 EDT, Dry Weight Start Date: 09/04/23 Status: Ordered meloxicam 15 mg oral tablet See Instructions, TAKE 1 TABLET BY MOUTH EVERY OTHER DAY, # 15 tablet, 4 Refills, Maintenance, 08/04/23 9:38:00 EDT, [id number], 158, cm, 08/01/23 7:14:00 EDT, Height, 78, kg, 12/13/21 10:52:00 EDT, Dry Weight Start Date: 08/04/23 Status: Ordered methotrexate 25 mg/mL injectable solution = 25 mg, Subcutaneous Injection, Every week, # 4 mL, 6 Refills, Maintenance, 12/16/22 17:05:00 EDT,[facility], Partial fill upon patient [...] Stop 12/12/23 15:43:00 EDT, 03/17/23 15:43:00 EST, [facility], Partial fill upon patient request if the prescription is for a schedule II opioid drug., 158, c... Start Date: 03/17/23 Stop Date: 12/12/23 Status: Ordered Simponi SmartJect 50 mg/0.5 mL subcutaneous solution See Instructions, INJECT 50MG SUBCUTANEOUSLY EVERY 28 DAYS, # 0.5 mL, 3 Refills, Maintenance, 08/06/23 11:46:00 EDT, [facility], 158, cm, 08/01/23 7:14:00 EDT, Height, 78, kg, 12/13/21 10:52:00 EDT, Dry Weight Start Date: 08/06/23 Status: Ordered traMADol 50 mg oral tablet 0 Refills, Maintenance, 09/15/23 10:05:00 EDT, Partial fill upon patient request if the prescription is for a schedule II opioid drug. Start Date: 09/15/23 Status: Ordered Vitamin D3 5000 intl units oral tablet See Instructions, 1 tablet By Mouth weekly, # 100 tablet, 0 Refills, Maintenance, 02/11/23 14:46:00EST, Tablet, [facility]/pharmacy #[id number], Partial fill upon patient request if the prescription is for a schedule II opioid drug., 158, cm, 01/13/23 9:29:00 EDT... 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 Depression with [...] Team Personnel Name: Krystina Goldsmith RN Position: [facility] RN Member Role: Primary Care Nurse Name: Lacey Ibarra NP Position: [facility] PCO Associate Professional Member Role: PCP Address: Address: [address] [place] [id number] Name: Edna Mallory Position: [facility] Outreach Member Role: Lifetime Consulting Physician Name: Silvia Whaley RN Position: [facility] Onco RN Member Role: Primary Care Nurse Name: Tarah De Leon RN Position: [facility] AMB Nurse Member Role: Primary Care Nurse Care Team Related Persons Name: JIMENEZ GARCIA Address: [address] [address] Name: WILLY GARCIA Address: [address] [address]
--- OUTSIDE RECORDS SUMMARY | 2023-12-12 20:29 | XMS_ITS | Continuity of Care Document ---
Author Organization [facility] ancer Care Address [address] [place] [phone]- Care Team Providers Care Reprographics Associate Name Role Phone Stacey Lacey GARCIA Primary Care Physician [place] [facility] [place] 11/13/[place] - 12/13/[address] [address]- Attending Physician: Dennis López Admitting Physician: Dennis [...] 0 Refills, Maintenance, 11/09/21 8:16:00 EDT, Tablet, [facility], Partial fill upon patient request if [...] 0 Refills, Maintenance, 11/09/21 8:20:00 EDT, Capsule, [facility], Partial fill upon patient request if the prescription is... Start Date: 11/09/21 Status: Ordered duloxetine 20 mg oral enteric coated capsule 1 capsule = 20 mg, By Mouth, Daily at bedtime, # 30 capsule, 1 Refills, Maintenance, 10/16/21 13:16:00 EDT, EC Capsule, [facility], Partial fill upon patient request if the prescription is for a schedule II opioid drug., 160.02, cm, 0... Start Date: 10/16/21 Stop Date: 12/15/21 Status: Ordered ferrous gluconate 324 mg oral tablet 1 tablet, By Mouth, 2 times a day, IF MENSTRUATING, INCREASE TO 3 TIMES DAILY. 30 DAY SUPPLY., # 70tablet, 1 Refills, [facility] [id number], 160.02, cm, 10/16/21 10:38:00 EDT, Height, 84.1, kg, 09/18/21 7:56:00 EDT, Dry Weight Start Date: 10/16/21 Status: Ordered methotrexate 2.5 mg oral tablet 4 tablet = 10 mg, By Mouth, Every week, # 32 tablet, 6 Refills, Maintenance, 03/07/21 16:05:00 EST,[facility]/pharmacy #[id number], Partial fill upon patient [...] Refills, Maintenance, 11/24/21 9:42:00 EDT, [facility], 158, cm, 11/09/21 6:57:00 [...] Date: 11/09/21 Status: Ordered Problem List Condition Effective Dates Status Health Status Inform ant History of hip replacement(Confirmed) Active Iron deficiency anemia(Confirmed) Active 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) 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 Depression with anxiety(Confirmed) Active Obese class I(Confirmed) Active avascular necrosis knees(Confirmed) Active Polyarthritis(Confirmed) Active Prolonged QT interval(Confirmed) Active Psoriasis(Confirmed) Active Rheumatoid arthritis, erosiv e, seronegative(Confirmed) Active Lupus(Confirmed) Active Thrombocytosis(Confirmed) Active Urge incontinence(Confirmed) Active Uterine fibroid(Confirmed) Active Vitamin D deficiency(Confirmed) Active Social History Social History Type Response Smoking Status Never smoker entered on: 09/07/15 Sex Care Team Personnel Name: Lacey Ibarra NP Address: [address] [place] [address] [place] [address]-
--- OUTSIDE RECORDS SUMMARY | 2023-12-12 20:29 | XMS_ITS | Continuity of Care Document ---
Author Organization [facility] Address [address] [place] [address]- Care Team Providers Care Rodent Exterminator Name Role Phone Stacey EDGE GLUERLacey Primary Care Physician Encounter [facility] Date(s): 12/16/22 - 01/15/23 [facility] [address] [place] [id number]- Allergies, Adverse Reactions, Alerts Substance Reaction Severity [...] Given tetanus/diphtheria/pertussis, acel(Tdap) 08/04/15 Given 1Result Comment: [id number] 2Result Comment: Booster Medications acetaminophen 325 mg [...] 6 Refills, Maintenance, 12/16/22 16:28:00 EDT, Tablet, [facility], Partial fill upon patient request if the prescription is for a schedule II opioid drug., 1 tablet By Mouth 2 times a da... Start Date: 12/16/22 Status: Ordered cyclobenzaprine 5 mg oral tablet 1 tablet = 5 mg, By Mouth, Daily at bedtime, # 30 tablet, 3 Refills, Acute 01/18/23 14:00:00 EDT, 12/19/22 14:08:00 EDT, [facility], Partial fill upon patient request if the prescription is for a schedule II opioid drug., 158, cm, .. Start Date: 12/19/22 Stop Date: 01/18/23 Status: Ordered duloxetine 20 mg oral enteric coated capsule 1 capsule = 20 mg, By Mouth, Daily, # 90 capsule, 1 Refills, Maintenance, 01/13/23 10:04:00 EDT, ECCapsule, [facility], 158, cm, 01/13/23 9:29:00 EDT, Height, 78, kg, 12/13/21 10:52:00 EDT, Dry Weight Start Date: 01/13/23 Stop Date: 07/12/23 Status: Ordered ferrous gluconate 324 mg oral tablet 1 tablet, By Mouth, 2 times a day, IF MENSTRUATING, INCREASE TO 3 TIMES DAILY. 30 DAY SUPPLY., # 70tablet, 1 Refills, Maintenance, 12/17/21 9:20:00 EDT, [id number], 158, cm, 12/13/21 10:52:00 EDT, Height, 78, kg, 12/13/21 10:52:00 EDT, Dry Weight Start Date: 12/17/21 Status: Ordered folic acid 1 mg oral tablet 1, tablet, By Mouth, Daily, EXCEPT THE DAY YOU TAKE METHOTREXATE., # 26 tablet, Refills 6, Tot. Refills 6, Maintenance, 03/02/22 11:56:00 EST, Route to Pharmacy Electronically, [facility]/pharmacy #[id number], 158, cm, 03/02/22 11:30:00 EST, Height, 78, kg, ... Start Date: 03/02/22 Status: Ordered meloxicam 15 mg oral tablet 1 tablet, By Mouth, Every other day, # 15 tablet, 4 Refills, Maintenance, 11/14/22 8:23:00 EDT, [id number], 158, cm, 07/17/22 8:31:00 EDT, Height, 78, kg, 12/13/21 10:52:00 EDT, Dry Weight Start Date: 11/14/22 Status: Ordered methotrexate 25 mg/mL injectable solution = 25 mg, Subcutaneous Injection, Every week, # 4 mL, 6 Refills, Maintenance, 12/16/22 17:05:00 EDT,[facility], Partial fill upon patient [...] Daily, # 90 tablet, 0 Refills, Maintenance, 01/13/23 7:47:00 EDT, [facility], Partial fill upon patient request if the prescription is for a schedule II opioid drug., 158, cm, 11/21/22 9:48:00 EDT, Height,... Start Date: 01/13/23 Status: Ordered predniSONE 5 mg oral tablet 1 tablet = 5 mg, By Mouth, Daily, # 30 tablet, 4 Refills, Maintenance, 10/18/22 15:43:00 EDT, [facility], Partial fill upon patient request if the prescription is for a schedule II opioid drug., 158, cm, 07/17/22 8:31:00 EDT, Height,... Start Date: 10/18/22 Stop Date: 03/17/23 Status: Ordered Simponi 50 mg/0.5 mL subcutaneous solution 0.5 mL = 50 mg, Subcutaneous Injection, Every 30 days, # 1 each, 3 Refills, Maintenance, 03/05/22 15:57:00 EST, Solution, [facility], Partial fill upon patient request if the prescription is for a schedule II opioid drug., 158, cm, 12... Start Date: 03/05/22 Status: Ordered Simponi SmartJect 50 mg/0.5 mL subcutaneous solution 0.5 mL = 50 mg, Subcutaneous Injection, Every 30 days, # 1 each, 0 Refills, Maintenance, 03/06/22 12:04:00 EST, Solution, [facility], Partial fill upon patient request if the prescription is for a schedule II opioid drug., 158, cm, 12... Start Date: 03/06/22 Status: Ordered Simponi SmartJect 50 mg/0.5 mL subcutaneous solution = 50 mg, Subcutaneous Infusion, Every 28 days, # 30 each, 3 Refills, Maintenance, 03/06/22 12:04:00EST, [facility], Partial fill upon patient [...] Team Personnel Name: Sherine Umaña RN Position: S RN Member Role: Primary Care Nurse Name: Krystina Goldsmith RN Position: S RN Member Role: Primary Care Nurse Name: Lacey Ibarra NP Position: [facility] PCO Associate Professional Member Role: PCP Address: Address: [address] [place] [id number]- [place] Name: Edna Mallory Position: [facility] Outreach Member Role: Lifetime Consulting Physician Name: Silvia Whaley RN Position: [facility] Onco RN Member Role: Primary Care Nurse Name: Tarah De Leon RN Position: [facility] SN RN Member Role: Primary Care Nurse Care Team Related Persons Name: JIMENEZ GARCIA Address: [address] [address] Name: WILLY GARCIA Address: [place] [address]
--- OUTSIDE RECORDS SUMMARY | 2023-12-12 20:29 | XMS_ITS | Continuity of Care Document ---
Author Organization [facility] Address [address] [place] [address]- Care Team Providers Care Furniture Packer Name Role Phone Stacey Lacey GARCIA Primary Care Physician Encounter [facility] Date(s): 04/23/21 - 05/23/21 [facility] [address] [place] [id number]- Allergies, Adverse Reactions, Alerts Substance Reaction Severity Status sulfADIAZINE Active Immunizations Given and Recorded Vaccine Date Status Refusal Reason SARS-CoV-2 (COVID-19) mRNA BNT-162b2 vac 1 02/20/21 Recorded SARS-CoV-2 (COVID-19) mRNA BNT-162b2 vac 07/13/20 Recorded SARS-CoV-2 (COVID-19) mRNA BNT-162b2 vac 06/21/20 Recorded Measles/Mumps/Rubella Virus Vaccine 10/04/15 Given tetanus/diphtheria/pertussis, acel(Tdap) 08/04/15 Given 1Result Comment: Booster Medications ethinyl estradiol-levonorgestrel biphasic extended cycle oral tablet 1 tablet, By Mouth, Daily, # 91 tablet, 0 Refills, [id number], 91, TAKE 1 TABLET BY MOUTH EVERY DAY, 161.5, cm, 03/19/21 11:22:00 EST, Height Start Date: 03/26/21 Status: Ordered ferrous gluconate 324 mg oral tablet 1 tablet, By Mouth, 2 times a day, for 30 days, TAKE TID WHEN MENSTRUATING, # 70 tablet, 6 Refills,Acute 07/26/21 22:23:00 EDT, 12/28/20 22:23:00 EDT, [id number], 161.5, cm, 12/21/20 14:28:00 EDT, Height Start Date: 12/28/20 Stop Date: 07/26/21 Status: Ordered Tylenol Caplet = 650 mg, By Mouth, Every 4 hours, 0 Refills, Maintenance, 09/14/15 16:12:22 Start Date: 09/14/15 Status: Ordered Problem List Condition Effective Dates Status Health Status Inform ant 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
--- OUTSIDE RECORDS SUMMARY | 2023-12-12 20:29 | XMS_ITS | Continuity of Care Document ---
Author Organization [facility] ter Address [address] [place] [phone]- Care Team Providers Care Roving Department Supervisor Name Role Phone Stacey Lacey GARCIA Primary Care Physician Encounter 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
--- OUTSIDE RECORDS SUMMARY | 2023-12-12 20:29 | XMS_ITS | Continuity of Care Document ---
Author Organization [facility] Address [address] [place] [address]- Care Team Providers Care Equipment Engineer Name Role Phone Stacey Lacey GARCIA Primary Care Physician [phone] Encounter [facility] Date(s): 07/30/21 - 08/31/21 [facility] Adult [address] [place] [address]- Attending Physician: Not on Staff, Attending MD Allergies, Adverse Reactions, Alerts Substance Reaction Severity Status sulfADIAZINE Active Immunizations Given and Recorded Vaccine Date Status Refusal Reason SARS-CoV-2 (COVID-19) mRNA BNT-162b2 vac 1 02/20/21 Recorded SARS-CoV-2 (COVID-19) mRNA BNT-162b2 vac 07/13/20 Recorded SARS-CoV-2 (COVID-19) mRNA BNT-162b2 vac 06/21/20 Recorded Measles/Mumps/Rubella Virus Vaccine 10/04/15 Given tetanus/diphtheria/pertussis, acel(Tdap) 08/04/15 Given 1Result Comment: Booster Medications duloxetine 20 mg oral enteric coated capsule 1 capsule = 20 mg, By Mouth, 2 times a day, # 180 capsule, 0 Refills, Maintenance, 08/29/21 9:28:00EDT, EC Capsule, Partial fill upon patient request if the prescription is for a schedule II opioid drug. Start Date: 08/29/21 Status: Ordered ferrous gluconate 324 mg oral tablet 1 tablet = 324 mg, By Mouth, 3 times a day, # 100 tablet, 0 Refills, Maintenance, 08/29/21 9:22:00 EDT, Tablet, Partial fill upon patient request if the prescription is for a schedule II opioid drug. Start Date: 08/29/21 Status: Ordered Tramadol = 50 mg, By Mouth, 0 Refills, Maintenance, 07/26/21 6:58:00 EDT, Partial fill upon patient request if the prescription is for a schedule II opioid drug. 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
--- OUTSIDE RECORDS SUMMARY | 2023-12-12 20:29 | XMS_ITS | Continuity of Care Document ---
Author Organization [facility] Address [address] [place] [address]- Care Team Providers Care Cloth Bleaching Supervisor Name Role Phone Stacey Lacey GARCIA Primary Care Physician [phone] Encounter [facility] Date(s): 10/12/21 - 11/11/21 [facility] [address] [place] [address]- Allergies, Adverse Reactions, Alerts Substance Reaction Severity [...] 0 Refills, Maintenance, 11/09/21 8:16:00 EDT, Tablet, [facility], Partial fill upon [...] 0 Refills, Maintenance, 11/09/21 8:20:00 EDT, Capsule, [facility], Partial fill upon patient request if the prescription is... Start Date: 11/09/21 Status: Ordered duloxetine 20 mg oral enteric coated capsule 1 capsule = 20 mg, By Mouth, Daily at bedtime, # 30 capsule, 1 Refills, Maintenance, 10/16/21 13:16:00 EDT, EC Capsule, [facility], Partial fill upon patient request if the prescription is for a schedule II opioid drug., 160.02, cm, 0... Start Date: 10/16/21 Stop Date: 12/15/21 Status: Ordered ferrous gluconate 324 mg oral tablet 1 tablet, By Mouth, 2 times a day, IF MENSTRUATING, INCREASE TO 3 TIMES DAILY. 30 DAY SUPPLY., # 70tablet, 1 Refills, [id number], 160.02, cm, 10/16/21 10:38:00 EDT, Height, 84.1, kg, 09/18/21 7:56:00 EDT, Dry Weight Start Date: 10/16/21 Status: Ordered Milk of Magnesia Liquid 30 [...] opioid drug. Start Date: 11/09/21 Status: Ordered oxyCODONE 5 mg oral tablet See Instructions, PRN, 1-2 tablet By Mouth Every 4 hours for severe pain, # 60 tablet, Refills 0, Tot. Refills 0, Acute 11/16/21 8:00:00 EDT, Pain , Severe, 11/09/21 8:16:00 EDT, Instructions ReplaceRequired Details, Route to Pharmacy Electronically,... Start Date: 11/09/21 Stop Date: 11/16/21 Status: Ordered pantoprazole 40 mg oral delayed release tablet = 40 mg, By Mouth, Daily, Take 1 capsule daily, # 30 capsule, 0 Refills, Maintenance, 11/09/21 8:18:00 EDT, EC Tablet, 158, cm, 11/09/21 6:57:00 EDT, Height, 83.5, kg, 11/08/21 11:05:00 EDT, Dry Weight Start Date: 11/09/21 Stop Date: 12/09/21 Status: Ordered senna 187 mg oral tablet 1 tablet = 8.6 mg, By Mouth, Daily at bedtime, PRN as needed for constipation, 0 Refills, Maintenance, 11/09/21 8:26:00 EDT, Tablet, Partial fill upon patient request if the prescription is for a schedule II opioid drug. Start Date: 11/09/21 Status: Ordered traMADol 50 mg oral tablet See Instructions, PRN Pain , Mild, Take 1-2 tablets every 6 hours as needed for mild pain. not to exceed 400 mg/day, # 56 tablet, 0 Refills, Acute 11/16/21 8:00:00 EDT, 11/09/21 9:03:00 EDT, Tablet, Partial fill upon patient request if the prescript... Start Date: 11/09/21 Stop Date: 11/16/21 Status: Ordered Problem List Condition Effective Dates Status Health Status Inform ant History of hip replacement(Confirmed) Active Iron deficiency anemia(Confirmed) Active half-way systemic steroid user(Confirmed) Active Depression with anxiety(Confirmed) [...]
--- OUTSIDE RECORDS SUMMARY | 2023-12-12 20:29 | XMS_ITS | Continuity of Care Document ---
Author Organization [facility] Address [address] [place] [address]- Care Team Providers Care Rn Navigator Name Role Phone Stacey Lacey GARCIA Primary Care Physician Encounter [facility] Date(s): 08/23/21 - 09/22/21 [facility] [address] [place] [address]- Allergies, Adverse Reactions, Alerts Substance Reaction Severity [...] 09/18/21 11:01:00 EDT, Route to Pharmacy Electronically, [facility], Partial fill upon patient [...] cycle(Confirmed) Active History of hip replacement(Confirmed) 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
--- OUTSIDE RECORDS SUMMARY | 2023-12-12 20:29 | XMS_ITS | Continuity of Care Document ---
Author Organization [facility] Address [address] [place] [address]- Care Team Providers Care Fireworks Maker Name Role Phone Stacey DIRECTOR OF PHYSIOTHERAPY SERVICESLacey Primary Care Physician Encounter [facility] Date(s): 04/18/23 - 05/18/23 [facility] [address] [place] [address]- Allergies, Adverse Reactions, Alerts Substance Reaction Severity [...] Given tetanus/diphtheria/pertussis, acel(Tdap) 08/04/15 Given 1Result Comment: [id number] 2Result Comment: Booster Medications acetaminophen 325 mg [...] 6 Refills, Maintenance, 12/16/22 16:28:00 EDT, Tablet, [facility], Partial fill upon patient request if the prescription is for a schedule II opioid drug., 1 tablet By Mouth 2 times a da... Start Date: 12/16/22 Status: Ordered cyclobenzaprine 5 mg oral tablet 1 tablet, By Mouth, Daily at bedtime, # 30 tablet, 3 Refills, Maintenance, 04/08/23 9:47:00 EST, [facility], 158, cm, 01/13/23 9:29:00 EDT, Height, 78, kg, 12/13/21 10:52:00 EDT, DryWeight Start Date: 04/08/23 Status: Ordered duloxetine 20 mg oral enteric coated capsule 1 capsule = 20 mg, By Mouth, Daily, # 90 capsule, 1 Refills, Maintenance, 01/13/23 10:04:00 EDT, ECCapsule, [facility], 158, cm, 01/13/23 9:29:00 EDT, Height, 78, kg, 12/13/21 10:52:00 EDT, Dry Weight Start Date: 01/13/23 Stop Date: 07/12/23 Status: Ordered ferrous gluconate 324 mg oral tablet 1 tablet, By Mouth, 2 times a day, IF MENSTRUATING, INCREASE TO 3 TIMES DAILY. 30 DAY SUPPLY., # 70tablet, 1 Refills, Maintenance, 12/17/21 9:20:00 EDT, [id number], 158, cm, 12/13/21 10:52:00 EDT, Height, 78, kg, 12/13/21 10:52:00 EDT, Dry Weight Start Date: 12/17/21 Status: Ordered Flonase Allergy Relief 50 mcg/inh nasal spray See Instructions, 1 sprays Daily in each nostril, # 16 Gm, 0 Refills, Maintenance, 05/08/23 10:58:00 EST, [id number], Partial fill upon patient request if the prescription is for a schedule II opioid drug., 158, cm, 01/13/23 9:29:00 EDT, Heig... Start Date: 05/08/23 Status: Ordered folic acid 1 mg oral tablet 1, tablet, By Mouth, Daily, EXCEPT THE DAY YOU TAKE METHOTREXATE., # 26 tablet, Refills 6, Maintenance, 03/11/23 15:05:00 EST, Route to Pharmacy Electronically, [id number], 158, cm, 01/13/23 9:29:00 EDT, Height, 78, [...] Height, 7... Start Date: 05/08/23 Status: Ordered meloxicam 15 mg oral tablet 1 tablet, By Mouth, Every other day, # 15 tablet, 4 Refills, Maintenance, 03/26/23 13:25:00 EST, [facility] [id number], 158, cm, 01/13/23 9:29:00 EDT, Height, 78, kg, 12/13/21 10:52:00 EDT, Dry Weight Start Date: 03/26/23 Status: Ordered methotrexate 25 mg/mL injectable solution = 25 mg, Subcutaneous Injection, Every week, # 4 mL, 6 Refills, Maintenance, 12/16/22 17:05:00 EDT,[facility], Partial fill upon patient [...] Stop 12/12/23 15:43:00 EDT, 03/17/23 15:43:00 EST, [facility], Partial fill upon patient request if the prescription is for a schedule II opioid drug., 158, c... Start Date: 03/17/23 Stop Date: 12/12/23 Status: Ordered predniSONE 5 mg oral tablet 2 tablet = 10 mg, By Mouth, Daily, # 60 tablet, 0 Refills, Maintenance, 12/12/23 15:43:00 EDT, [facility][id number], Partial fill upon patient request if the prescription is for a schedule II opioid drug., 158, cm, 01/13/23 9:29:00 EDT, Height, 78, kg,... Start Date: 12/12/23 Stop Date: 01/11/24 Status: Ordered Simponi SmartJect 50 mg/0.5 mL subcutaneous solution See Instructions, INJECT 50MG SUBCUTANEOUSLY EVERY 28 DAYS, # 0.5 mL, 3 Refills, Maintenance, 03/11/23 15:07:00 EST, [facility], 158, cm, 01/13/23 9:29:00 EDT, Height, 78, kg, 12/13/21 10:52:00 EDT, Dry Weight Start Date: 03/11/23 Status: Ordered Vitamin D3 5000 intl units oral tablet See Instructions, 1 tablet By Mouth weekly, # 100 tablet, 0 Refills, Maintenance, 02/11/23 14:46:00EST, Tablet, [id number], Partial fill upon patient request if the prescription is for a schedule II opioid drug., 158, cm, 01/13/23 9:29:00 EDT... Start Date: 02/11/23 Status: Ordered Problem List Condition Confirmation Course Effective Dates Status H ealth Status Informant Cough Confirmed Active History of hip replacement Confirmed Active Iron deficiency anemia Confirmed Active FPC systemic steroid user Confirmed Active Depression with [...] Team Personnel Name: Krystina Goldsmith RN Position: [facility] RN Member Role: Primary Care Nurse Name: Lacey Ibarra NP Position: [facility] PCO Associate Professional Member Role: PCP Address: Address: [address] [place] [id number] Name: dEna Mallory Position: [facility] Outreach Member Role: Lifetime Consulting Physician Name: Silvia Whaley RN Position: [facility] Onco RN Member Role: Primary Care Nurse Name: Tarah De Leon RN Position: [facility] SN RN Member Role: Primary Care Nurse Care Team Related Persons Name: JIMENEZ GARCIA Address: [address] [address] Name: WILLY GARCIA Address: [address] [address]
--- OUTSIDE RECORDS SUMMARY | 2023-12-12 20:29 | XMS_ITS | Continuity of Care Document ---
Author Organization [facility] Address [address] [place] [address]- Care Team Providers Care Mess Attendant Name Role Phone Stacey ALUM PLANT SUPERVISOR, Lacey Thomas Primary Care Physician [phone] Encounter [facility] Date(s): 10/16/21 - 10/23/21 [facility] [address] [place] [address]- Encounter Diagnosis Weight loss(Discharge Diagnosis) - 10/16/21 Uterine fibroid S/P hysteroscopic myomectomy(Discharge Diagnosis) - 10/16/21 Iron deficiency anemia(Discharge Diagnosis) - 10/16/21 Rheumatoid arthritis, erosive, seronegative(Discharge Diagnosis) - 10/16/21 Vitamin D deficiency(Discharge Diagnosis) - 10/16/21 Depression with anxiety(Discharge Diagnosis) - 10/16/21 Attending Physician: Not on Staff, Attending MD [...] Refills, Maintenance, 10/16/21 13:16:00 EDT, EC Capsule, [facility], Partial fill upon patient request if the prescription is for a schedule II opioid drug., 160.02, cm, 0... Start Date: 10/16/21 Stop Date: 12/15/21 Status: Ordered ferrous gluconate 324 mg oral tablet 1 tablet, By Mouth, 2 times a day, IF MENSTRUATING, INCREASE TO 3 TIMES DAILY. 30 DAY SUPPLY., # 70tablet, 1 Refills, [facility] [id number], 160.02, cm, 10/16/21 10:38:00 EDT, Height, 84.1, kg, 09/18/21 7:56:00 EDT, Dry Weight Start Date: 10/16/21 Status: Ordered Tramadol = 50 mg, By [...] hip replacement(Confirmed) Active Iron deficiency anemia(Confirmed) Active assisted systemic steroid user(Confirmed) Active Depression with anxiety(Confirmed) Active Obese class I(Confirmed) Active avascular necrosis knees(Confirmed) Active Polyarthritis(Confirmed) Active Prolonged QT interval(Confirmed) Active Psoriasis(Confirmed) Active Rheumatoid arthritis, erosiv e, seronegative(Confirmed) Active Lupus(Confirmed) Active Thrombocytosis(Confirmed) Active Urge incontinence(Confirmed) Active Uterine fibroid(Confirmed) Active Vitamin D deficiency(Confirmed) Active Diagnosis Diagnosis Type Effective Dates Health Status Clinical Service Informant Weight loss Discharge Diagnosis 10/16/21 Uterine fibroid S/P hysteroscopic myomectomy Discharge Diagnosis 10/16/21 Non-Specified Iron deficiency anemia Discharge Diagnosis 10/16/21 Rheumatoid arthritis, erosive, seronegative Discharge Diagnosis 10/16/21 Depression with anxiety Discharge Diagnosis 10/16/21 Vitamin D deficiency Discharge Diagnosis 10/16/21 Procedures Procedure Date Related Diagnosis Body Site Status hysteroscopic myomectomy 09/10/21 Completed Vital Signs Most recent to oldest [Reference Range]: 1 Height 160.02 cm (10/16/21 10:38 AM) Weight 81.7 kg (10/16/21 10:38 AM) Oxygen Saturation [94-100 %] 97 % (10/16/21 10:38 AM) Pulse Rate [55-90 bpm] 93 bpm *H* (10/16/21 10:38 AM) Body Mass Index [18.5-24.99] 31.91 *>HHI* (10/16/21 10:38 AM) Blood Pressure [90-138/55-84 mm Hg] 115/ 70mm Hg (10/16/21 10:38 AM) Mode of Delivery (Oxygen) Room air (10/16/21 10:38 AM) Blood pressure sites Arm, right (10/16/21 10:38 AM) Weight Obtained Via Standing scale (10/16/21 10:38 AM) Social History Social History Type Response Smoking Status Never smoker entered on: 09/07/15 Sex
--- OUTSIDE RECORDS SUMMARY | 2023-12-12 20:29 | XMS_ITS | Continuity of Care Document ---
Author Organization [facility] Address [address] [place] [address]- Care Team Providers Care Health Professor Name Role Phone Stacey Lacey GARCIA Primary Care Physician [phone] Encounter [facility] Date(s): 02/26/21 - 03/28/21 [facility] [address] [place] [phone]- Allergies, Adverse Reactions, Alerts Substance Reaction Severity Status sulfADIAZINE Active Immunizations Given and Recorded Vaccine Date Status Refusal Reason SARS-CoV-2 (COVID-19) mRNA BNT-162b2 vac 07/13/20 Recorded SARS-CoV-2 (COVID-19) mRNA BNT-162b2 vac 06/21/20 Recorded Measles/Mumps/Rubella Virus Vaccine 10/04/15 Given tetanus/diphtheria/pertussis, acel(Tdap) 08/04/15 Given Medications ethinyl estradiol-levonorgestrel biphasic extended cycle oral tablet 1 tablet, By Mouth, Daily, # 91 tablet, 0 Refills, [facility] [id number], 91, TAKE 1 TABLET BY MOUTH EVERY [...] condition(Confirmed) Active History of hip replacement(Confirmed) 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
--- OUTSIDE RECORDS SUMMARY | 2023-12-12 20:29 | XMS_ITS | Continuity of Care Document ---
Author Organization [facility] Address [address] [place] [address]- Care Team Providers Care Life Insurance Agent Name Role Phone Stacey JOSE, Lacey Thomas Primary Care Physician Encounter [facility] Date(s): 01/05/21 - 02/04/[address] 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
--- OUTSIDE RECORDS SUMMARY | 2023-12-12 20:29 | XMS_ITS | Continuity of Care Document ---
Author Organization [facility] Address [address] [place] [address]- Care Team Providers Care Master In Chancery Name Role Phone Stacey Lacey GARCIA Primary Care Physician [phone] Encounter [facility] Date(s): 11/01/20 - 12/01/20 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
--- OUTSIDE RECORDS SUMMARY | 2023-12-12 20:29 | XMS_ITS | Continuity of Care Document ---
Author Organization [facility] Address [address] [place] [address]- Care Team Providers Care Tube Turner Name Role Phone Stacey QUARRY EXTRACTION WORKER, Lacey Thomas Primary Care Physician [phone] [facility] Date(s): 03/20/21 - 10/29/21 [facility] [address] [place] [address]- Discharge Disposition: A-D/C Home Attending Physician: Nura Mcdaniel MD Admitting Physician: Nura Mcdaniel MD Referring Physician: Abe Davis MD Allergies, [...] Refills, Maintenance, 10/16/21 13:16:00 EDT, EC Capsule, [facility], Partial fill upon patient request if the prescription is for a schedule II opioid drug., 160.02, cm, 0... Start Date: 10/16/21 Stop Date: 12/15/21 Status: Ordered ferrous gluconate 324 mg oral tablet 1 tablet, By Mouth, 2 times a day, IF MENSTRUATING, INCREASE TO 3 TIMES DAILY. 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 Depression with anxiety(Confirmed) Active Obese class I(Confirmed) Active avascular necrosis knees(Confirmed) Active Polyarthritis(Confirmed) Active Prolonged QT interval(Confirmed) Active Psoriasis(Confirmed) Active Rheumatoid arthritis, erosiv e, seronegative(Confirmed) Active Lupus(Confirmed) Active Thrombocytosis(Confirmed) Active Urge incontinence(Confirmed) Active Uterine fibroid(Confirmed) Active Vitamin D deficiency(Confirmed) Active Vital Signs Most recent to oldest [Reference Range]: 1 2 Height 158 cm (07/25/21 9:00 AM) 158 cm (07/23/21 10:13 AM) Weight 87.6 kg (07/23/21 10:13 AM) Pulse Rate [55-90 bpm] 79 bpm (07/23/21 10:13 AM) Body Mass Index [18.5-24.99] 35.09 *>HHI* (07/23/21 10:13 AM) Blood Pressure [90-138/55-84 mm Hg] 113/ 66mm Hg (07/23/21 10:13 AM) Temperature [96.8-100.4 DegF] 98.0 DegF (07/23/21 10:13 AM) Blood pressure sites Arm, left (07/23/21 10:13 AM) Temperature Route Temporal (07/25/21 9:00 AM) Temporal (07/23/21 10:13 AM) Dry Weight 87.6 kg (07/23/21 10:13 AM) Weight Obtained Via Standing scale (07/23/21 10:13 AM) Dry Weight Obtained Via Standing scale (07/23/21 10:13 AM) Social History Social History Type Response Smoking Status Never smoker entered on: 09/07/15 Sex
--- OUTSIDE RECORDS SUMMARY | 2023-12-12 20:29 | XMS_ITS | Continuity of Care Document ---
Author Organization [facility] Kali lt Address [address] [place] [address]- Care Team Providers Care Ingot Passer Name Role Phone Stacey Lacey GARCIA Primary Care Physician Encounter [facility] Date(s): 03/18/23 - 04/17/23 [facility] Adult [address] [place] [address]- Allergies, Adverse Reactions, Alerts Substance Reaction Severity [...] Given tetanus/diphtheria/pertussis, acel(Tdap) 08/04/15 Given 1Result Comment: [id number] 2Result Comment: Booster Medications acetaminophen 325 mg [...] 6 Refills, Maintenance, 12/16/22 16:28:00 EDT, Tablet, [facility], Partial fill upon patient request if the prescription is for a schedule II opioid drug., 1 tablet By Mouth 2 times a da... Start Date: 12/16/22 Status: Ordered cyclobenzaprine 5 mg oral tablet 1 tablet, By Mouth, Daily at bedtime, # 30 tablet, 3 Refills, Maintenance, 04/08/23 9:47:00 EST, [facility], 158, cm, 01/13/23 9:29:00 EDT, Height, 78, kg, 12/13/21 10:52:00 EDT, DryWeight Start Date: 04/08/23 Status: Ordered duloxetine 20 mg oral enteric coated capsule 1 capsule = 20 mg, By Mouth, Daily, # 90 capsule, 1 Refills, Maintenance, 01/13/23 10:04:00 EDT, ECCapsule, [facility], 158, cm, 01/13/23 9:29:00 EDT, Height, 78, kg, 12/13/21 10:52:00 EDT, Dry Weight Start Date: 01/13/23 Stop Date: 07/12/23 Status: Ordered ferrous gluconate 324 mg oral tablet 1 tablet, By Mouth, 2 times a day, IF MENSTRUATING, INCREASE TO 3 TIMES DAILY. 30 DAY SUPPLY., # 70tablet, 1 Refills, Maintenance, 12/17/21 9:20:00 EDT, [id number], 158, cm, 12/13/21 10:52:00 EDT, Height, 78, kg, 12/13/21 10:52:00 EDT, Dry Weight Start Date: 12/17/21 Status: Ordered folic acid 1 mg oral tablet 1, tablet, By Mouth, Daily, EXCEPT THE DAY YOU TAKE METHOTREXATE., # 26 tablet, Refills 6, Maintenance, 03/11/23 15:05:00 EST, Route to Pharmacy Electronically, [id number], 158, cm, 01/13/23 9:29:00 EDT, Height, 78, kg, 12/13/21 10:52:00 EDT, Dry... Start Date: 03/11/23 Status: Ordered meloxicam 15 mg oral tablet 1 tablet, By Mouth, Every other day, # 15 tablet, 4 Refills, Maintenance, 03/26/23 13:25:00 EST, [id number], 158, cm, 01/13/23 9:29:00 EDT, Height, 78, kg, 12/13/21 10:52:00 EDT, Dry Weight Start Date: 03/26/23 Status: Ordered methotrexate 25 mg/mL injectable solution = 25 mg, Subcutaneous Injection, Every week, # 4 mL, 6 Refills, Maintenance, 12/16/22 17:05:00 EDT,[facility], Partial fill upon patient [...] tablet, 0 Refills, Maintenance, 01/13/23 7:47:00 EDT, [facility], Partial fill upon patient request if the prescription is for a schedule II opioid drug., 158, cm, 11/21/22 9:48:00 EDT, Height,... Start Date: 01/13/23 Status: Ordered predniSONE 5 mg oral tablet 1 tablet = 5 mg, By Mouth, Daily, # 90 tablet, 2 Refills, Maintenance, 03/17/23 15:43:00 EST, [facility], Partial fill upon patient request if the prescription is for a schedule II opioid drug., 158, cm, 01/13/23 9:29:00 EDT, Height,... Start Date: 03/17/23 Stop Date: 12/12/23 Status: Ordered Simponi SmartJect 50 mg/0.5 mL subcutaneous solution See Instructions, INJECT 50MG SUBCUTANEOUSLY EVERY 28 DAYS, # 0.5 mL, 3 Refills, Maintenance, 03/11/23 15:07:00 EST, [facility], 158, cm, 01/13/23 9:29:00 EDT, Height, 78, kg, 12/13/21 10:52:00 EDT, Dry Weight Start Date: 03/11/23 Status: Ordered Vitamin D3 5000 intl units oral tablet See Instructions, 1 tablet By Mouth weekly, # 100 tablet, 0 Refills, Maintenance, 02/11/23 14:46:00EST, Tablet, [facility]/pharmacy #[id number], Partial fill upon patient request if the prescription is for a schedule II opioid drug., 158, cm, 01/13/23 9:29:00 EDT... Start Date: 02/11/23 Status: Ordered Problem List Condition Confirmation Course Effective Dates Status H ealth Status Informant History of hip replacement Confirmed Active Iron deficiency anemia Confirmed Active [facility]CI systemic steroid user Confirmed Active Depression with [...] Team Personnel Name: Krystina Goldsmith RN Position: [facility] RN Member Role: Primary Care Nurse Name: Lacey Ibarra NP Position: [facility] PCO Associate Professional Member Role: PCP Address: Address: [address] [place] [address]- Name: Edna Mallory Position: [facility] Outreach Member Role: Lifetime Consulting Physician Name: Silvia Whaley RN Position: [facility] Onco RN Member Role: Primary Care Nurse Name: Tarah De Leon RN Position: [facility] SN RN Member Role: Primary Care Nurse Care Team Related Persons Name: JIMENEZ GARCIA Address: home [address] [place] [address] Name: WILLY GARCIA Address: home [address] [place] [address]
--- OUTSIDE RECORDS SUMMARY | 2023-12-12 20:29 | XMS_ITS | Continuity of Care Document ---
Author Organization [facility] Kali Address [address] [place] [address]- Care Team Providers Care Breast Puller Name Role Phone Stacey INDUSTRIAL CHEMIST, Lacey Thomas Primary Care Physician [phone] [facility] Date(s): 06/09/23 - 07/09/23 [facility] Adult [address] [place] [address]- Allergies, Adverse Reactions, Alerts Substance Reaction Severity [...] Given tetanus/diphtheria/pertussis, acel(Tdap) 08/04/15 Given 1Result Comment: [id number] 2Result Comment: Booster Medications acetaminophen 325 mg [...] tablet, 6 Refills, Maintenance, 05/20/23 9:32:00 EST, [facility], Partial fill... Start Date: 05/20/23 Status: [...] 6 Refills, Maintenance, 12/16/22 16:28:00 EDT, Tablet, [facility], Partial fill upon patient request if the prescription is for a schedule II opioid drug., 1 tablet By Mouth 2 times a da... Start Date: 12/16/22 Status: Ordered duloxetine 20 mg oral enteric coated capsule 1 capsule, By Mouth, Daily, # 30 capsule, 5 Refills, Maintenance, 06/24/23 15:42:00 EDT, [facility], 158, cm, 05/19/23 16:05:00 EST, Height, 78, kg, 12/13/21 10:52:00 EDT, Dry Weight Start Date: 06/24/23 Status: Ordered ferrous gluconate 324 mg oral tablet 1 tablet, By Mouth, 2 times a day, IF MENSTRUATING, INCREASE TO 3 TIMES DAILY. 30 DAY SUPPLY., # 70tablet, 1 Refills, Maintenance, 12/17/21 9:20:00 EDT, [facility] STORE [id number], 158, cm, 12/13/21 10:52:00 EDT, Height, 78, kg, 12/13/21 10:52:00 EDT, Dry Weight Start Date: 12/17/21 Status: Ordered Flonase Allergy Relief 50 mcg/inh nasal spray See Instructions, 1 sprays Daily in each nostril, # 16 Gm, 0 Refills, Maintenance, 05/08/23 10:58:00 EST, [facility]/pharmacy #[id number], Partial fill upon patient request if the prescription is for a schedule II opioid drug., 158, cm, 01/13/23 9:29:00 EDT, [facility]... Start Date: 05/08/23 Status: Ordered folic acid 1 mg oral tablet 1, tablet, By Mouth, Daily, EXCEPT THE DAY YOU TAKE METHOTREXATE., # 26 tablet, Refills 6, Maintenance, 03/11/23 15:05:00 EST, Route to Pharmacy Electronically, [id number], 158, cm, 01/13/23 9:29:00 EDT, Height, 78, [...] 05/19/23 16:26:00 EST, Route to Pharmacy Electronically, [facility], Partial fill upon patient request if the prescription is for a lucho... Start Date: 05/19/23 Status: Ordered meloxicam 15 mg oral tablet 1 tablet, By Mouth, Every other day, # 15 tablet, 4 Refills, Maintenance, 03/26/23 13:25:00 EST, [facility] [id number], 158, cm, 01/13/23 9:29:00 EDT, Height, 78, kg, 12/13/21 10:52:00 EDT, Dry Weight Start Date: 03/26/23 Status: Ordered methotrexate 25 mg/mL injectable solution = 25 mg, Subcutaneous Injection, Every week, # 4 mL, 6 Refills, Maintenance, 12/16/22 17:05:00 EDT,[facility], Partial fill upon patient [...] Stop 12/12/23 15:43:00 EDT, 03/17/23 15:43:00 EST, [facility], Partial fill upon patient request if the prescription is for a schedule II opioid drug., 158, c... Start Date: 03/17/23 Stop Date: 12/12/23 Status: Ordered Simponi SmartJect 50 mg/0.5 mL subcutaneous solution See Instructions, INJECT 50MG SUBCUTANEOUSLY EVERY 28 DAYS, # 0.5 mL, 3 Refills, Maintenance, 03/11/23 15:07:00 EST, [facility], 158, cm, 01/13/23 9:29:00 EDT, Height, 78, kg, 12/13/21 10:52:00 EDT, Dry Weight Start Date: 03/11/23 Status: Ordered Vitamin D3 5000 intl units oral tablet See Instructions, 1 tablet By Mouth weekly, # 100 tablet, 0 Refills, Maintenance, 02/11/23 14:46:00EST, Tablet, [facility]/pharmacy #[id number], Partial fill upon patient request [...] Team Personnel Name: Krystina Goldsmith RN Position: [facility] RN Member Role: Primary Care Nurse Name: Lacey Ibarra NP Position: [facility] PCO Associate Professional Member Role: PCP Address: Address: [address] [place] [id number] Name: Edna Mallory Position: [facility] Outreach Member Role: Lifetime Consulting Physician Name: Silvia Whaley RN Position: [facility] Onco RN Member Role: Primary Care Nurse Name: Tarah De Leon RN Position: [facility] SN RN Member Role: Primary Care Nurse Care Team Related Persons Name: JIMENEZ GARCIA Address: home [address] [place] [id number] Name: WILLY GARCIA Address: home [address] [place] [address]
--- OUTSIDE RECORDS SUMMARY | 2023-12-12 20:29 | XMS_ITS | Continuity of Care Document ---
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
--- OUTSIDE RECORDS SUMMARY | 2023-12-12 20:29 | XMS_ITS | Continuity of Care Document ---
Author Organization [facility] Address [address] [facility], [address] [place] [address]- Care Team Providers Care Silver Cleaner Name Role Phone Stacey TOPOGRAPHIC COMPUTATOR, Lacey Thomas Primary Care Physician Encounter 10/21/19 - 10/28/19 [facility] [address], [facility] [address] [place] [address]- [phone] Attending Physician: Abe Davis MD Admitting Physician: [...] Urge incontinence(Confirmed) Active Vitamin D deficiency(Confirmed) Active Results Radiology Reports * Exam Date Time Procedure Performing Provider Status 7/23/20 9:03 AM Dexa Bone Density (Axial) Afua Mishra nne; Auth (Verified) Notes: (Dexa Bone Density (Axial)) Reason For Exam: Screening for Osteoporosis RESULT: DEXA BONE DENSITY (AXIAL) Bone Density Report Name: EDGAR GARCIA Age: 44 Sex: Female Ethnicity: White Date of : 1975 Indication: POSTMENOPAUSAL. Referring Provider: ABE DAVIS Study: Bone densitometry was performed. Exam Date: October 21, 2019 Accession number: [id number] Bone Density: Region BMD T-score Z-score Classification AP Spine (L1-L4) 0.981 -0.6 -0.2 Normal Femoral Neck (Left) 0.890 0.4 0.8 Normal Total Hip (Left) 0.948 0.0 0.3 Normal World Health Organization criteria for BMD impression classify patients as: Normal (T-score at or above -1.0), Osteopenia (T-score between -1.0 and -2.5), or Osteoporosis (T-score at or below -2.5). 10-year Fracture Risk: FRAX not reported because: All T-scores at or above -1.0 Clinical Information Provided by Patient: Has used the following medications: Vitamin D Patient maximum height was 64.0 Onset of menses at age 9 Number of children 1 Impression: The patient has normal bone density as determined by WHO criteria. A repeat bone density assessment should be considered in two years. Reported by: David Casas MD on 10/21/2019 9:30:00 AM. Dictated By: Augusto ALLEN, David Freire Dictated Date/Time: 10/21/19 9:40 am Reviewed By: David Casas MD Signed By: David Casas MD Signed Date/Time: 10/21/19 9:40 am Transcribed By: TED Transcribed Date/Time: 10/21/19 9:40 am Social History Social History Type Response Smoking Status Never smoker entered on: 09/07/15 Sex
--- OUTSIDE RECORDS SUMMARY | 2023-12-12 20:29 | XMS_ITS | Continuity of Care Document ---
Author Organization [facility] Kali Address [address] [place] [address]- Care Team Providers Care Can Handler Name Role Phone Stacey Lacey GARCIA Primary Care Physician [phone] Encounter [facility] R [id number] Date(s): 05/29/22 - 09/26/22 [facility] Adult [address] [place] [address]- Attending Physician: Not on Staff, Attending MD [...] 0 Refills, Maintenance, 11/09/21 8:20:00 EDT, Capsule, [facility], Partial fill upon patient request if the prescription is... Start Date: 11/09/21 Status: Ordered duloxetine 20 mg oral enteric coated capsule 1 capsule = 20 mg, By Mouth, Daily at bedtime, # 30 capsule, 1 Refills, Maintenance, 10/16/21 13:16:00 EDT, EC Capsule, [facility], Partial fill upon patient request if the prescription is for a schedule II opioid drug., 160.02, cm, 0... Start Date: 10/16/21 Stop Date: 12/15/21 Status: Ordered ferrous gluconate 324 mg oral tablet 1 tablet, By Mouth, 2 times a day, IF MENSTRUATING, INCREASE TO 3 TIMES DAILY. 30 DAY SUPPLY., # 70tablet, 1 Refills, Maintenance, 12/17/21 9:20:00 EDT, [id number], 158, cm, 12/13/21 10:52:00 EDT, Height, 78, kg, 12/13/21 10:52:00 EDT, Dry Weight Start Date: 12/17/21 Status: Ordered folic acid 1 mg oral tablet 1, tablet, By Mouth, Daily, EXCEPT THE DAY YOU TAKE METHOTREXATE., # 26 tablet, Refills 6, Tot. Refills 6, Maintenance, 03/02/22 11:56:00 EST, Route to Pharmacy Electronically, [facility]/pharmacy #[id number], 158, cm, 03/02/22 11:30:00 EST, Height, 78, kg, ... Start Date: 03/02/22 Status: Ordered meloxicam 15 mg oral tablet See Instructions, Take 1 tablet every other day, # 15 tablet, 4 Refills, Maintenance, 07/17/22 8:59:00 EDT, [facility]/pharmacy #[id number], Partial fill upon patient request if the prescription is for a scheduleII opioid drug., 158, cm, 07/17/22 8:31:00 EDT, Hei... Start Date: 07/17/22 Status: Ordered methotrexate 2.5 mg oral tablet See Instructions, 6 tablet By Mouth Every week, # 30 tablet, 6 Refills, Maintenance, 03/02/22 11:56:00 EST, [facility]/pharmacy #[id number], Partial fill upon patient [...] tablet, 4 Refills, Maintenance, 08/09/22 17:17:00 EDT, [facility]/pharmacy #[id number], Partial fill upon patient [...] 3 Refills, Maintenance, 03/05/22 15:57:00 EST, Solution, [facility], Partial fill upon patient request if the prescription is for a schedule II opioid drug., 158, cm, 12... Start Date: 03/05/22 Status: Ordered Simponi SmartJect 50 mg/0.5 mL subcutaneous solution 0.5 mL = 50 mg, Subcutaneous Injection, Every 30 days, # 1 each, 0 Refills, Maintenance, 03/06/22 12:04:00 EST, Solution, [facility], Partial fill upon patient request if the prescription is for a schedule II opioid drug., 158, cm, 12... Start Date: 03/06/22 Status: Ordered Simponi SmartJect 50 mg/0.5 mL subcutaneous solution = 50 mg, Subcutaneous Infusion, Every 28 days, # 30 each, 3 Refills, Maintenance, 03/06/22 12:04:00EST, [facility], Partial fill upon patient request if the prescription is for a schedule II opioid drug., 158, cm, 03/02/22 11:30:00 E... 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 Depression with [...] Team Personnel Name: Sherine Umaña RN Position: [facility] RN Member Role: Primary Care Nurse Name: Krystina Goldsmith RN Position: [facility] RN Member Role: Primary Care Nurse Name: Lacey Ibarra NP Position: [facility] PCO Associate Professional Member Role: PCP Address: Address: [address] [place] [address]- Name: Edna Mallory Position: [facility] Outreach Member Role: Lifetime Consulting Physician Name: Silvia Whaley RN Position: [facility] Onco RN Member Role: Primary Care Nurse Care Team Related Persons Name: JIMENEZ GARCIA Address: home [address] [place] [address] Name: WILLY GARCIA Address: [address] [address]
--- OUTSIDE RECORDS SUMMARY | 2023-12-12 20:29 | XMS_ITS | Continuity of Care Document ---
Author Organization [facility] Kali Address [address] [place] [address]- Care Team Providers Care Roof Assembler Name Role Phone Stacey Lacey GARCIA Primary Care Physician Encounter [facility] Date(s): 10/28/23 - 11/27/23 [facility] [address] [place] [address]- Allergies, Adverse Reactions, Alerts Substance Reaction Severity [...] Given tetanus/diphtheria/pertussis, acel(Tdap) 08/04/15 Given 1Result Comment: [id number] 2Result Comment: Booster Medications acetaminophen 325 mg [...] tablet, 6 Refills, Maintenance, 11/26/23 14:07:00 EDT, [facility], Partial fill... Start Date: [...] 6 Refills, Maintenance, 12/16/22 16:28:00 EDT, Tablet, [facility], Partial fill upon patient request if the prescription is for a schedule II opioid drug., 1 tablet By Mouth 2 times a da... Start Date: 12/16/22 Status: Ordered duloxetine 20 mg oral enteric coated capsule 2 capsule = 40 mg, By Mouth, Daily, # 180 capsule, 0 Refills, Maintenance, 09/16/23 11:45:00 EDT, EC Capsule, [facility]/pharmacy #[id number], 158, cm, 09/15/23 8:50:00 EDT, Height, 78, kg, 12/13/21 10:52:00 EDT,Dry Weight Start Date: 09/16/23 Stop Date: 12/15/23 Status: Ordered ferrous gluconate 324 mg oral tablet 1 tablet, By Mouth, 2 times a day, IF MENSTRUATING, INCREASE TO 3 TIMES DAILY. 30 DAY SUPPLY., # 70tablet, 1 Refills, Maintenance, 12/17/21 9:20:00 EDT, [id number], 158, cm, 12/13/21 10:52:00 EDT, Height, 78, kg, 12/13/21 10:52:00 EDT, Dry Weight Start Date: 12/17/21 Status: Ordered Flonase Allergy Relief 50 mcg/inh nasal spray See Instructions, 1 sprays Daily in each nostril, # 16 Gm, 0 Refills, Maintenance, 05/08/23 10:58:00 EST, [facility]/pharmacy #[id number], Partial fill upon patient request if the prescription is for a schedule II opioid drug., 158, cm, 01/13/23 9:29:00 EDT, [facility]ig... Start Date: 05/08/23 Status: Ordered folic acid 1 mg oral tablet 1, tablet, By Mouth, Daily, EXCEPT THE DAY YOU TAKE METHOTREXATE., # 26 tablet, Refills 6, Maintenance, 03/11/23 15:05:00 EST, Route to Pharmacy Electronically, [facility] [id number], 158, cm, 01/13/23 9:29:00 EDT, Height, 78, [...] 10/29/23 16:04:00 EDT, Route to Pharmacy Electronically, [facility], 158, cm, 09/15/23 8:50:00 EDT, [...] Refills, Maintenance, 08/04/23 9:38:00 EDT, [facility], 158, cm, 08/01/23 7:14:00 EDT, Height, 78, kg, 12/13/21 10:52:00 EDT, Dry Weight Start Date: 08/04/23 Status: Ordered methotrexate 25 mg/mL injectable solution = 25 mg, Subcutaneous Injection, Every week, # 4 mL, 6 Refills, Maintenance, 12/16/22 17:05:00 EDT,[facility], Partial fill upon [...] tablet, 3 Refills, Maintenance, 11/03/23 13:46:00 EDT, [facility], Partial fill upon patient request if the prescription is for a schedule II opioid drug., 158, cm, 09/15/23 8:50:00 EDT, Height,... Start Date: 11/03/23 Status: Ordered predniSONE 5 mg oral tablet 1 tablet = 5 mg, By Mouth, Daily, for 90 days, # 90 tablet, 2 Refills, Hard Stop 12/12/23 15:43:00 EDT, 03/17/23 15:43:00 EST, [facility], Partial fill upon patient request if the prescription is for a schedule II opioid drug., 158, c... Start Date: 03/17/23 Stop Date: 12/12/23 Status: Ordered Simponi SmartJect 50 mg/0.5 mL subcutaneous solution See Instructions, INJECT 50MG SUBCUTANEOUSLY EVERY 28 DAYS, # 0.5 mL, 3 Refills, Maintenance, 08/06/23 11:46:00 EDT, [facility], 158, cm, 08/01/23 7:14:00 EDT, Height, 78, kg, 12/13/21 10:52:00 EDT, Dry Weight Start Date: 08/06/23 Status: Ordered traMADol 50 mg oral tablet 1 tablet = 50 mg, By Mouth, Every 6 hours, PRN severe pain, # 60 tablet, 1 Refills, Maintenance, 10/30/23 12:06:00 EDT, Tablet, [facility]/pharmacy #[id number], Partial fill upon patient request if the prescription is for a schedule II opioid drug., 158, cm, 09/14... Start Date: 10/30/23 Status: Ordered Vitamin D3 5000 intl units oral tablet See Instructions, 1 tablet By Mouth weekly, # 100 tablet, 0 Refills, Maintenance, 02/11/23 14:46:00EST, Tablet, [facility]/pharmacy #[id number], Partial fill upon patient request if the prescription is for a schedule II opioid drug., 158, cm, 01/13/23 9:29:00 EDT... 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 Active longterm systemic steroid user Confirmed Active Depression with [...] Team Personnel Name: Krystina Goldsmith RN Position: [facility] RN Member Role: Primary Care Nurse Name: Lacey Ibarra NP Position: [facility] PCO Associate Professional Member Role: PCP Address: Address: [address] [place] [id number] Name: Edna Mallory Position: [facility] Outreach Member Role: Lifetime Consulting Physician Name: Silvia Whaley RN Position: [facility] Onco RN Member Role: Primary Care Nurse Name: Tarah De Leon RN Position: [facility] AMB Nurse Member Role: Primary Care Nurse Care Team Related Persons Name: JIMENEZ GARCIA Address: home [address] [place] [id number] Name: WILLY GARCIA Address: home [address] [place] [address]
--- OUTSIDE RECORDS SUMMARY | 2023-12-12 20:29 | XMS_ITS | Continuity of Care Document ---
Author Organization [facility] Address [address] [place] [address]- Care Team Providers Care Head Mechanic Name Role Phone Stacey Lacey GARCIA Primary Care Physician Encounter [facility] Date(s): 11/01/20 - 12/01/20 [facility] [address] [place] [id number]- Allergies, Adverse Reactions, Alerts Substance Reaction Severity [...] condition(Confirmed) Active History of hip replacement(Confirmed) Active [facility] systemic 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
--- OUTSIDE RECORDS SUMMARY | 2023-12-12 20:29 | XMS_ITS | Continuity of Care Document ---
Author Organization [facility] Reed Kali Address [address] [place] [address]- Care Team Providers Care Professor Of Biochemistry Name Role Phone Stacey CLINICAL ACADEMIC ALLERGIST, Lacey Thomas Primary Care Physician [phone] Encounter [facility] Date(s): 12/28/20 - 01/04/21 [facility] Adult [address] [place] [address]- Encounter Diagnosis Heavy menses(Discharge Diagnosis) - 12/28/20 Microcytic anemia(Discharge Diagnosis) - 12/28/20 Attending Physician: Stephie ALLEN, Ben Rosenthal Allergies, Adverse Reactions, Alerts Substance Reaction Severity [...] condition(Confirmed) Active History of hip replacement(Confirmed) 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
--- OUTSIDE RECORDS SUMMARY | 2023-12-12 20:29 | XMS_ITS | Continuity of Care Document ---
Author Organization [facility] Reed Kali Address [address] [place] [address]- Care Team Providers Care Benefits Consulting Analyst Name Role Phone Stacey Lacey GARCIA Primary Care Physician Encounter [facility] Date(s): 09/24/23 - 10/24/23 [facility] Adult [address] [place] [address]- Allergies, Adverse Reactions, Alerts Substance Reaction Severity [...] Given tetanus/diphtheria/pertussis, acel(Tdap) 08/04/15 Given 1Result Comment: [id number] 2Result Comment: Booster Medications acetaminophen 325 mg [...] tablet, 6 Refills, Maintenance, 05/20/23 9:32:00 EST, [facility], Partial fill... Start Date: 05/20/23 [...] 6 Refills, Maintenance, 12/16/22 16:28:00 EDT, Tablet, [facility], Partial fill upon patient request if the prescription is for a schedule II opioid drug., 1 tablet By Mouth 2 times a da... Start Date: 12/16/22 Status: Ordered duloxetine 20 mg oral enteric coated capsule 2 capsule = 40 mg, By Mouth, Daily, # 180 capsule, 0 Refills, Maintenance, 09/16/23 11:45:00 EDT, EC Capsule, [facility]/pharmacy #[id number], 158, cm, 09/15/23 8:50:00 EDT, Height, 78, kg, 12/13/21 10:52:00 EDT,Dry Weight Start Date: 09/16/23 Stop Date: 12/15/23 Status: Ordered ferrous gluconate 324 mg oral tablet 1 tablet, By Mouth, 2 times a day, IF MENSTRUATING, INCREASE TO 3 TIMES DAILY. 30 DAY SUPPLY., # 70tablet, 1 Refills, Maintenance, 12/17/21 9:20:00 EDT, [facility] STORE [id number], 158, cm, 12/13/21 10:52:00 EDT, Height, 78, kg, 12/13/21 10:52:00 EDT, Dry Weight Start Date: 12/17/21 Status: Ordered Flonase Allergy Relief 50 mcg/inh nasal spray See Instructions, 1 sprays Daily in each nostril, # 16 Gm, 0 Refills, Maintenance, 05/08/23 10:58:00 EST, [facility]/pharmacy #[id number], Partial fill upon patient request if the prescription is for a schedule II opioid drug., 158, cm, 01/13/23 9:29:00 EDT, Heig... Start Date: 05/08/23 Status: Ordered folic acid 1 mg oral tablet 1, tablet, By Mouth, Daily, EXCEPT THE DAY YOU TAKE METHOTREXATE., # 26 tablet, Refills 6, Maintenance, 03/11/23 15:05:00 EST, Route to Pharmacy Electronically, [id number], 158, cm, 01/13/23 9:29:00 EDT, Height, 78, [...] 05/19/23 16:26:00 EST, Route to Pharmacy Electronically, [facility], Partial fill upon patient request [...] Refills, Maintenance, 08/04/23 9:38:00 EDT, [id number], 158, cm, 08/01/23 7:14:00 EDT, Height, 78, kg, 12/13/21 10:52:00 EDT, Dry Weight Start Date: 08/04/23 Status: Ordered methotrexate 25 mg/mL injectable solution = 25 mg, Subcutaneous Injection, Every week, # 4 mL, 6 Refills, Maintenance, 12/16/22 17:05:00 EDT,[facility], Partial fill upon patient request [...] 15:43:00 EDT, 03/17/23 15:43:00 EST, [facility], Partial fill upon patient request if the prescription is for a schedule II opioid drug., 158, c... Start Date: 03/17/23 Stop Date: 12/12/23 Status: Ordered Simponi SmartJect 50 mg/0.5 mL subcutaneous solution See Instructions, INJECT 50MG SUBCUTANEOUSLY EVERY 28 DAYS, # 0.5 mL, 3 Refills, Maintenance, 08/06/23 11:46:00 EDT, [facility], 158, cm, 08/01/23 7:14:00 EDT, Height, 78, kg, 12/13/21 10:52:00 EDT, Dry Weight Start Date: 08/06/23 Status: Ordered traMADol 50 mg oral tablet 1 tablet = 50 mg, By Mouth, Every 6 hours, PRN severe pain, # 30 tablet, 1 Refills, Maintenance, 10/08/23 7:31:00 EDT, Tablet, [facility]/pharmacy #[id number], Partial fill upon patient request if the prescription is for a schedule II opioid drug., 158, cm, ... Start Date: 10/08/23 Status: Ordered Vitamin D3 5000 intl units oral tablet See Instructions, 1 tablet By Mouth weekly, # 100 tablet, 0 Refills, Maintenance, 02/11/23 14:46:00EST, Tablet, [facility]/pharmacy #[id number], Partial fill upon patient request if the prescription is for a schedule II opioid drug., 158, cm, 01/13/23 9:29:00 EDT... 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 Depression with [...] Care Nurse Name: Lacey Ibarra NP Position: [facility] PCO Associate Professional Member Role: PCP Address: Address: [address] [place] [address]- Name: Edna Mallory Position: [facility] Outreach Member Role: Lifetime Consulting Physician Name: Silvia Whaley RN Position: [facility] Onco RN Member Role: Primary Care Nurse Name: Tarah De Leon RN Position: [facility] AMB Nurse Member Role: Primary Care Nurse Care Team Related Persons Name: JIMENEZ GARCIA Address: [address] [address] Name: WILLY GARCIA Address: [address] [address]
--- OUTSIDE RECORDS SUMMARY | 2023-12-12 20:29 | XMS_ITS | Continuity of Care Document ---
Author Organization [facility] Reed Kali Address [address] [place] [address]- Care Team Providers Care Supervisor Pigment Making Name Role Phone Stacey Lacey GARCIA Primary Care Physician [phone] Encounter [facility] Date(s): 11/27/20 - 12/04/20 [facility] Adult [address] [place] [address]- Encounter Diagnosis Heavy menses(Discharge Diagnosis) - 11/27/20 Microcytic anemia(Discharge Diagnosis) - 11/27/20 Rheumatoid arthritis, erosive, seronegative(Discharge Diagnosis) - 11/27/20 retirement systemic steroid user(Discharge Diagnosis) - 11/27/20 Lupus(Discharge Diagnosis) - 11/27/20 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) - 11/27/20 Attending Physician: Lacey Ibarra NP Allergies, Adverse Reactions, [...] condition(Confirmed) Active History of hip replacement(Confirmed) 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 Heavy menses(Confirmed) Active Microcytic anemia(Confirmed) Active Obesity(Confirmed) Active Polyarthritis(Confirmed) Active Psoriasis(Confirmed) Active Rheumatoid arthritis, erosiv e, seronegative(Confirmed) Active Lupus(Confirmed) Active Urge incontinence(Confirmed) Active Vitamin D deficiency(Confirmed) Active Diagnosis Diagnosis Type Effective Dates Health Status Clinical Service Informant Heavy menses Discharge Diagnosis 11/27/20 Microcytic anemia Discharge Diagnosis 11/27/20 Lupus Discharge Diagnosis 11/27/20 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 Discharge Diagnosis 11/27/20 Rheumatoid arthritis, erosive, seronegative Discharge Diagnosis 11/27/20 Anxiety disorder due to general medical condition Discharge Diagnosis 11/27/20 Vital Signs Most recent to oldest [Reference Range]: 1 Height 161.5 cm (11/27/20 2:20 PM) Oxygen Saturation [94-100 %] 98 % (11/27/20 2:20 PM) Pulse Rate [55-90 bpm] 100 bpm *H* (11/27/20 2:20 PM) Blood Pressure [90-138/55-84 mm Hg] 128/ 68mm Hg (11/27/20 2:20 PM) Respiratory Rate [16-30 br/min] 18 br/mi n (11/27/20 2:20 PM) Temperature [96.8-100.4 DegF] 98.6 DegF (11/27/20 2:20 PM) Mode of Delivery (Oxygen) Room air (11/27/20 2:20 PM) Blood pressure sites Arm, right (11/27/20 2:20 PM) Temperature Route Oral (11/27/20 2:20 PM) Social History Social History Type Response Smoking Status Never smoker entered on: 09/07/15 Sex
--- OUTSIDE RECORDS SUMMARY | 2023-12-12 20:29 | XMS_ITS | Continuity of Care Document ---
Author Organization [facility] Address [address] [place] [address]- Care Team Providers Care Photographic Equipment Mechanic Name Role Phone Stacey Lacey GARCIA Primary Care Physician [phone] Encounter [facility] Date(s): 10/29/21 - 11/28/21 [facility] [address] [place] [address]- Allergies, Adverse Reactions, Alerts Substance Reaction Severity [...] 0 Refills, Maintenance, 11/09/21 8:16:00 EDT, Tablet, [facility], Partial fill upon patient [...] 0 Refills, Maintenance, 11/09/21 8:20:00 EDT, Capsule, [facility], Partial fill upon patient request if the prescription is... Start Date: 11/09/21 Status: Ordered duloxetine 20 mg oral enteric coated capsule 1 capsule = 20 mg, By Mouth, Daily at bedtime, # 30 capsule, 1 Refills, Maintenance, 10/16/21 13:16:00 EDT, EC Capsule, [facility], Partial fill upon patient request if the prescription is for a schedule II opioid drug., 160.02, cm, 0... Start Date: 10/16/21 Stop Date: 12/15/21 Status: Ordered ferrous gluconate 324 mg oral tablet 1 tablet, By Mouth, 2 times a day, IF MENSTRUATING, INCREASE TO 3 TIMES DAILY. 30 DAY SUPPLY., # 70tablet, 1 Refills, [facility]16, 160.02, cm, 10/16/21 10:38:00 EDT, Height, 84.1, kg, 09/18/21 7:56:00 EDT, Dry Weight Start Date: 10/16/21 Status: Ordered methotrexate 2.5 mg oral tablet 4 tablet = 10 mg, By Mouth, Every week, # 32 tablet, 6 Refills, Maintenance, 03/07/21 16:05:00 EST,[facility]/pharmacy #[id number], Partial fill upon patient request [...] tablet, 2 Refills, Maintenance, 11/24/21 9:42:00 EDT, [facility], 158, cm, 11/09/21 6:57:00 [...] hip replacement(Confirmed) Active Iron deficiency anemia(Confirmed) Active [facility] systemic steroid user(Confirmed) Active Depression with anxiety(Confirmed) [...] Team Personnel Name: Lacey Ibarra NP Address: [address] [place] [id number]
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
--- OUTSIDE RECORDS SUMMARY | 2023-12-12 20:30 | XMS_ITS | Continuity of Care Document ---
Author Organization [facility] Reed Kali Address [address] [place] [id number]- Care Team Providers Care Automatic Operator Name Role Phone Stacey Lacey GARCIA Primary Care Physician Encounter [facility] Date(s): 08/04/23 - 09/03/23 [facility] Adult [address] [place] [address]- Allergies, Adverse Reactions, Alerts Substance Reaction Severity [...] Given tetanus/diphtheria/pertussis, acel(Tdap) 08/04/15 Given 1Result Comment: [id number] 2Result Comment: Booster Medications acetaminophen 325 mg [...] tablet, 6 Refills, Maintenance, 05/20/23 9:32:00 EST, [facility], Partial fill... Start Date: 05/20/23 [...] 6 Refills, Maintenance, 12/16/22 16:28:00 EDT, Tablet, [facility], Partial fill upon patient request if the prescription is for a schedule II opioid drug., 1 tablet By Mouth 2 times a da... Start Date: 12/16/22 Status: Ordered duloxetine 20 mg oral enteric coated capsule 1 capsule, By Mouth, Daily, # 30 capsule, 5 Refills, Maintenance, 06/24/23 15:42:00 EDT, [facility], 158, cm, 05/19/23 16:05:00 EST, Height, 78, kg, 12/13/21 10:52:00 EDT, Dry Weight Start Date: 06/24/23 Status: Ordered ferrous gluconate 324 mg oral tablet 1 tablet, By Mouth, 2 times a day, IF MENSTRUATING, INCREASE TO 3 TIMES DAILY. 30 DAY SUPPLY., # 70tablet, 1 Refills, Maintenance, 12/17/21 9:20:00 EDT, [facility] STORE [facility], 158, cm, 12/13/21 10:52:00 EDT, Height, 78, kg, 12/13/21 10:52:00 EDT, Dry Weight Start Date: 12/17/21 Status: Ordered Flonase Allergy Relief 50 mcg/inh nasal spray See Instructions, 1 sprays Daily in each nostril, # 16 Gm, 0 Refills, Maintenance, 05/08/23 10:58:00 EST, [facility]/pharmacy #[id number], Partial fill upon patient request if the prescription is for a schedule II opioid drug., 158, cm, 01/13/23 9:29:00 EDT, Heig... Start Date: 05/08/23 Status: Ordered folic acid 1 mg oral tablet 1, tablet, By Mouth, Daily, EXCEPT THE DAY YOU TAKE METHOTREXATE., # 26 tablet, Refills 6, Maintenance, 03/11/23 15:05:00 EST, Route to Pharmacy Electronically, [id number], 158, cm, 01/13/23 9:29:00 EDT, Height, 78, [...] 05/19/23 16:26:00 EST, Route to Pharmacy Electronically, [facility], Partial fill upon patient request if the prescription is for a lucho... Start Date: 05/19/23 Status: Ordered Insulin Syringe, BD Ultra-Fine 1 cc 30 G x 12.7 mm (1/2in) See Instructions, # 6 each, Maintenance, use one syringe with each medication administration, 09/03/23 8:05:00 EDT, Supply, 158, cm, 08/01/23 7:14:00 EDT, Height, 78, kg, 12/13/21 10:52:00 EDT, Dry Weight Start Date: 09/03/23 Status: Ordered meloxicam 15 mg oral tablet 1 tablet, By Mouth, Every other day, # 15 tablet, 4 Refills, Maintenance, 03/26/23 13:25:00 EST, [facility], 158, cm, 01/13/23 9:29:00 EDT, Height, 78, kg, 12/13/21 10:52:00 EDT, Dry Weight Start Date: 03/26/23 Status: Ordered meloxicam 15 mg oral tablet See Instructions, TAKE 1 TABLET BY MOUTH EVERY OTHER DAY, # 15 tablet, 4 Refills, Maintenance, 08/04/23 9:38:00 EDT, [id number], 158, cm, 08/01/23 7:14:00 EDT, Height, 78, kg, 12/13/21 10:52:00 EDT, Dry Weight Start Date: 08/04/23 Status: Ordered methotrexate 25 mg/mL injectable solution = 25 mg, Subcutaneous Injection, Every week, # 4 mL, 6 Refills, Maintenance, 12/16/22 17:05:00 EDT,[facility], Partial fill upon patient request [...] Stop 12/12/23 15:43:00 EDT, 03/17/23 15:43:00 EST, [facility], Partial fill upon patient request if the prescription is for a schedule II opioid drug., 158, c... Start Date: 03/17/23 Stop Date: 12/12/23 Status: Ordered Simponi SmartJect 50 mg/0.5 mL subcutaneous solution See Instructions, INJECT 50MG SUBCUTANEOUSLY EVERY 28 DAYS, # 0.5 mL, 3 Refills, Maintenance, 08/06/23 11:46:00 EDT, [facility], 158, cm, 08/01/23 7:14:00 EDT, Height, 78, kg, 12/13/21 10:52:00 EDT, Dry Weight Start Date: 08/06/23 Status: Ordered traMADol 50 mg oral tablet 1 tablet = 50 mg, By Mouth, Every 6 hours, PRN as needed for severe pain, for 7 days, # 28 tablet, 1 Refills, Acute 09/05/23 0:32:00 EDT, 08/22/23 0:32:00 EDT, Tablet, [id number], Partial fill upon patient request if the prescription is for a... 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 Depression with [...] Team Personnel Name: Krystina Goldsmith RN Position: [facility] RN Member Role: Primary Care Nurse Name: Lacey Ibarra NP Position: [facility] PCO Associate Professional Member Role: PCP Address: Address: [address] [place] [id number] Name: Edna Mallory Position: [facility] Outreach Member Role: Lifetime Consulting Physician Name: Silvia Whaley RN Position: [facility] Onco RN Member Role: Primary Care Nurse Name: Tarah De Leon RN Position: [facility] AMB Nurse Member Role: Primary Care Nurse Care Team Related Persons Name: JIMENEZ GARCIA Address: home [address] [place] [id number] Name: WILLY GARCIA Address: home [address] [place] [id number]
--- OUTSIDE RECORDS SUMMARY | 2023-12-12 20:30 | XMS_ITS | Continuity of Care Document ---
Author Organization [facility] Address [address] [place] [address]- Care Team Providers Care Foreman Shipping Department Name Role Phone Stacey Lacey GARCIA Primary Care Physician Encounter [facility] Date(s): 04/26/21 - 06/21/21 [facility] [address] [place] [id number]- Attending Physician: Abe Davis MD Allergies, Adverse Reactions, [...] Mouth, Daily, # 91 tablet, 0 Refills, [facility] [id number], 91, TAKE 1 TABLET BY MOUTH EVERY [...] EDT, Height Start Date: 12/28/20 Stop Date: 4/28/22 Status: Ordered Tylenol Caplet = 650 mg, By Mouth, Every 4 hours, 0 Refills, Maintenance, 09/14/15 16:12:22 Start Date: 09/14/15 Status: Ordered Problem List Condition Effective Dates Status Health Status Inform ant Anxiety disorder due to gene ral medical condition(Confirmed) Active History of hip replacement(Confirmed) Active 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
--- OUTSIDE RECORDS SUMMARY | 2023-12-12 20:30 | XMS_ITS | Continuity of Care Document ---
Author Organization [facility] Address [address] [place] [id number]- Care Team Providers Care Manager Rental Name Role Phone Stacey BRAND SALES MANAGER, Lacey Thomas Primary Care Physician [phone] 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
--- OUTSIDE RECORDS SUMMARY | 2023-12-12 20:30 | XMS_ITS | Continuity of Care Document ---
Author Organization [facility] Address [address] [place] [address]- Care Team Providers Care Geological Engineer Name Role Phone Stacey Lacey GARCIA Primary Care Physician [phone] Encounter [facility] Date(s): 10/16/21 - 11/15/21 [facility] [address] [place] [id number]- Allergies, Adverse Reactions, Alerts Substance Reaction Severity [...] 0 Refills, Maintenance, 11/09/21 8:16:00 EDT, Tablet, [facility], Partial fill upon patient [...] 0 Refills, Maintenance, 11/09/21 8:20:00 EDT, Capsule, [facility], Partial fill upon patient request if the prescription is... Start Date: 11/09/21 Status: Ordered duloxetine 20 mg oral enteric coated capsule 1 capsule = 20 mg, By Mouth, Daily at bedtime, # 30 capsule, 1 Refills, Maintenance, 10/16/21 13:16:00 EDT, EC Capsule, [facility], Partial fill upon patient request if the prescription is for a schedule II opioid drug., 160.02, cm, 0... Start Date: 10/16/21 Stop Date: 12/15/21 Status: Ordered ferrous gluconate 324 mg oral tablet 1 tablet, By Mouth, 2 times a day, IF MENSTRUATING, INCREASE TO 3 TIMES DAILY. 30 DAY SUPPLY., # 70tablet, 1 Refills, [facility] [address], 160.02, cm, 10/16/21 10:38:00 EDT, Height, 84.1, [...] hip replacement(Confirmed) Active Iron deficiency anemia(Confirmed) Active alf systemic steroid user(Confirmed) Active Depression with anxiety(Confirmed) [...]
--- OUTSIDE RECORDS SUMMARY | 2023-12-12 20:30 | XMS_ITS | Continuity of Care Document ---
Author Organization [facility] Reed Kali Address [address] [place] [address]- Care Team Providers Care Perinatal Social Worker Name Role Phone Lacey Ibarra NP Primary Care Physician Encounter [facility] Date(s): 09/15/23 - 09/22/23 [facility] Adult [address] [place] [address]- Encounter Diagnosis Depression with anxiety(Discharge Diagnosis) - 09/15/23 Osteonecrosis of left hip(Discharge Diagnosis) - 09/15/23 Anemia(Discharge Diagnosis) - 09/15/23 Attending Physician: Lacey Ibarra NP Referring Physician: Lacey Ibarra NP Allergies, Adverse [...] Given tetanus/diphtheria/pertussis, acel(Tdap) 08/04/15 Given 1Result Comment: [id number] 2Result Comment: Booster Medications acetaminophen 325 mg [...] tablet, 6 Refills, Maintenance, 05/20/23 9:32:00 EST, [facility], Partial fill... Start Date: [...] 6 Refills, Maintenance, 12/16/22 16:28:00 EDT, Tablet, [facility], Partial fill upon patient request if the prescription is for a schedule II opioid drug., 1 tablet By Mouth 2 times a da... Start Date: 12/16/22 Status: Ordered duloxetine 20 mg oral enteric coated capsule 2 capsule = 40 mg, By Mouth, Daily, # 180 capsule, 0 Refills, Maintenance, 09/16/23 11:45:00 EDT, EC Capsule, [facility]/pharmacy #[id number], 158, cm, 09/15/23 8:50:00 EDT, Height, 78, kg, 12/13/21 10:52:00 EDT,Dry Weight Start Date: 09/16/23 Stop Date: 12/15/23 Status: Ordered ferrous gluconate 324 mg oral tablet 1 tablet, By Mouth, 2 times a day, IF MENSTRUATING, INCREASE TO 3 TIMES DAILY. 30 DAY SUPPLY., # 70tablet, 1 Refills, Maintenance, 12/17/21 9:20:00 EDT, [id number], 158, cm, 12/13/21 10:52:00 EDT, Height, 78, kg, 12/13/21 10:52:00 EDT, Dry Weight Start Date: 12/17/21 Status: Ordered Flonase Allergy Relief 50 mcg/inh nasal spray See Instructions, 1 sprays Daily in each nostril, # 16 Gm, 0 Refills, Maintenance, 05/08/23 10:58:00 EST, [facility]/pharmacy #[id number], Partial fill upon patient request if the prescription is for a schedule II opioid drug., 158, cm, 01/13/23 9:29:00 EDT, [facility]... Start Date: 05/08/23 Status: Ordered folic acid 1 mg oral tablet 1, tablet, By Mouth, Daily, EXCEPT THE DAY YOU TAKE METHOTREXATE., # 26 tablet, Refills 6, Maintenance, 03/11/23 15:05:00 EST, Route to Pharmacy Electronically, [id number], 158, cm, 01/13/23 9:29:00 EDT, Height, 78, [...] 05/19/23 16:26:00 EST, Route to Pharmacy Electronically, [facility], Partial fill upon patient [...] Refills, Maintenance, 08/04/23 9:38:00 EDT, [id number], 158, cm, 08/01/23 7:14:00 EDT, Height, 78, kg, 12/13/21 10:52:00 EDT, Dry Weight Start Date: 08/04/23 Status: Ordered methotrexate 25 mg/mL injectable solution = 25 mg, Subcutaneous Injection, Every week, # 4 mL, 6 Refills, Maintenance, 12/16/22 17:05:00 EDT,[facility], Partial fill upon patient [...] Stop 12/12/23 15:43:00 EDT, 03/17/23 15:43:00 EST, [facility], Partial fill upon patient request if the prescription is for a schedule II opioid drug., 158, c... Start Date: 03/17/23 Stop Date: 12/12/23 Status: Ordered Simponi SmartJect 50 mg/0.5 mL subcutaneous solution See Instructions, INJECT 50MG SUBCUTANEOUSLY EVERY 28 DAYS, # 0.5 mL, 3 Refills, Maintenance, 08/06/23 11:46:00 EDT, [facility], 158, cm, 08/01/23 7:14:00 [...] tablet, 0 Refills, Maintenance, 02/11/23 14:46:00EST, Tablet, [facility]/pharmacy #[id number], Partial fill upon patient [...] Effective Dates Health Status Clinical Service Informant Depression with anxiety Discharge Diagnosis 09/15/23 Osteonecrosis of left hip Discharge Diagnosis 09/15/23 Anemia Discharge Diagnosis 09/15/23 Vital Signs Most recent to oldest [Reference Range]: 1 Height 158 cm (09/15/23 8:50 AM) Weight 82.3 kg (09/15/23 8:50 AM) Oxygen Saturation [94-100 %] 99 % (09/15/23 8:50 AM) Pulse Rate [55-90 bpm] 74 bpm (09/15/23 8:50 AM) Body Mass Index [18.5-24.99 kg/m2] 32.97 kg/m2 *>HHI* (09/15/23 8:50 AM) Blood Pressure [90-138/55-84 mm Hg] 120/ 75mm Hg (09/15/23 8:50 AM) Mode of Delivery (Oxygen) Room air (09/15/23 8:50 AM) Blood pressure sites Arm, left (09/15/23 8:50 AM) Weight Obtained Via Standing scale (09/15/23 8:50 AM) Social History Social History Type Response Smoking Status Never smoker entered on: 09/07/15 Sex Note * Sara Solomon: PERFORM Event Display: Patient Education/Instruction Authored Date: [id number] Ambulatory Adult Visit Summary [facility] [address], [place] [id number] Name: EDGAR GARCIA : 1975?? Visit: 09/15/2023 08:42?? Ambulatory Visit Instructions ?? Your Care Team Primary Care Provider Lacey Ibarra NP? This Visit Provider Lacey Ibarra NP. Your Diagnosis Depression with anxiety Lupus Osteonecrosis of left hip Vitals Signs Pulse Rate: 74 bpm Height: 158 cm Systolic Blood Pressure: 120 mm Hg Weight: 82.3 kg Diastolic Blood Pressure: 75 mm Hg Body Mass Index:??32.97 kg/m2??Critical Oxygen Saturation: 99 % Body surface area: 1.9 What to do next Instructions From Your Provider [email or web address] [address] [place] [id number] ?? 12 ct Follow-Up Appointments Follow Up with??Lacey Ibarra NP Why: for annual exam in 4-6 months Where: ?? Future Orders Fecal Occult Blood Immunochemical (Fecal Occult Blood Immunochemical FIT) - Routine, Once, 07/02/2413:41:00 EDT, [facility], Stool?? Fecal Occult Blood Immunochemical (Fecal Occult Blood Immunochemical FIT) - Routine, Once, :32:00 EDT, [facility], Stool?? Fecal Occult Blood Immunochemical (Fecal Occult Blood Immunochemical FIT) - Routine, Once, :51:00 EDT, [facility], Stool?? Medications The list below reflects the information in our records and provided by you today along with any changes made during this visit. Please continue your medications until treatment is completed or stopped by your provider. If this is different from the information you have or there are other questions,please contact the prescribing provider. What How Much When Why Instructions Changed Duloxetine (DULoxetine 40 mg oral delayed release capsule) 1 capsule Oral Daily Duration: 90 Days do not crush or chew ?? Pickup at [facility]/pharmacy #[id number] Changed Meloxicam (meloxicam 15 mg oral tablet) See instructions TAKE 1 TABLET BY MOUTH EVERY OTHER DAY ?? Unchanged Acetaminophen (acetaminophen 325 mg oral tablet) 650 Milligram Oral Every 6 hours Unchanged Alendronate (alendronate 70 mg oral tablet) See instructions 1 tablet By Mouth, once weekly, with 6-8 oz plain water, at least 30 minutes before first food, beverage, or medication of the day ?? Unchanged Calcium And Vitamin D Combination (Caltrate 600 + D oral tablet) 1 tab(s) Oral Twice a day Unchanged Cholecalciferol (Vitamin D3 5000 intl units oral tablet) See instructions 1 tablet By Mouth weekly ?? Unchanged Durable Medical Equipment (BD 1ML 25G 1 inch syringe) See instructions use 1 syringe weekly to inject SQ ??methotrexate as directed ?? Unchanged Durable Medical Equipment (for med administration) See instructions BD 3ml 25G 1 inch syringe Use one syringe weekly for the administration of medication ?? Unchanged Durable Medical Equipment (Insulin Syringe, BD Ultra-Fine 1 cc 30 G x 12.7 mm (1/ 2in)) See instructions use one syringe with each medication administration every 28 days ?? Unchanged Ferrous Gluconate (ferrous gluconate 324 mg oral tablet) 1 tab(s) Oral Twice a day IF MENSTRUATING, INCREASE TO 3 TIMES DAILY. 30 DAY SUPPLY. ?? Unchanged Fluticasone Nasal (Flonase Allergy Relief 50 mcg/ inh nasal spray) See instructions Cough 1 sprays Daily in each nostril ?? Unchanged Folic Acid (folic acid 1 mg oral tablet) 1 tab(s) Oral Daily EXCEPT THE DAY YOU TAKE METHOTREXATE. ?? Unchanged Gabapentin (gabapentin 100 mg oral capsule) 1 capsule Oral 3 times a day Unchanged Golimumab (Simponi SmartJect 50 mg/ 0.5 mL subcutaneous solution) See instructions INJECT 50MG SUBCUTANEOUSLY EVERY 28 DAYS ?? Unchanged Methotrexate (methotrexate 25 mg/ mL injectable solution) 25 Milligram Subcutaneous Injection Every week Duration: 30 Days Unchanged Milk of Magnesia (Milk of Magnesia Liquid) 30 Milliliter Oral Daily as needed for Constipation Unchanged Miscellaneous Rx (BD 3 ML SYRINGE 25GX1 25G X 1 Miscellaneous) See instructions USE ONE SYRINGE WEEKLY FOR THE ADMINISTRATION OF MEDICATION ?? Unchanged PredniSONE (predniSONE 5 mg oral tablet) 1 tab(s) Oral Daily Rheumatoid arthritis Duration: 90 Days Pharmacy Information [facility]/pharmacy #[id number]: [address] [place] [phone] Medications and Immunizations Administered Medications Given During Visit No medications given during this visit.?? Allergies (NKA means No Known Allergies) sulfa drugs??(rash and fever) Common Emergency Awareness Tips IS IT A STROKE? Act FAST and Check for these signs: FACE Does the face look uneven? ARM Does one arm drift down? SPEECH Does their speech sound strange? TIME Call at any sign of stroke ?? Heart Attack Signs Chest discomfort: Most heart attacks involve discomfort in the center of the chest and lasts more than a few minutes, or goes away and comes back. It can feel like uncomfortable pressure, squeezing, fullness or pain. Discomfort in upper body: Symptoms can include pain or discomfort in one or both arms, back, neck, jaw or stomach. Shortness of breath: With or without discomfort. Other signs: Breaking out in a cold sweat, nausea, or lightheaded. Remember, MINUTES DO MATTER. If you experience any of these heart attack warning signs, call to get immediate medical attention! ?? Smoking can increase your chances of developing chronic health problems and can cause harmful effects to other family members in your house. If you smoke, you are strongly encouraged to quit. Please call [employer] Link at [phone] or [phone] (7512) or log in to [email or web address] for referrals to smoking cessation programs. ?? The National Suicide Prevention Hotline is available 21/10 if you or someone you know needs to find a reason to keep living. By calling 5-160-395-[employer] (0019) you'll be connected to a skilled, trained counselor at a crisis center in your area. [facility] Health Portal You can view and manage your care through the patient portal or by using a health care arnaldo of your choosing. [employer] is a website that allows you to securely view your medical information including your hospital discharge summary, office visit summaries, medications and follow-up visits. You can also request appointments, renew medications, and request access to your medical information using a health care arnaldo of your choosing, or just ask a question. You can enroll at [email or web address] or register during your next office visit. [facility], in keeping with [facility] guidance, no longer requires face masks for staff, patientsor visitors in most situations. Similiar to time spent indoors at other locations, there is the chance that you were exposed to repiratory viruses during your time with us (such as flu or COVID-19). If you develop symptoms concerning for a viral respiratory infection, please seek testing (and treatment if indicated) from your medical provider or home test kit. ?? Disclaimer: The information provided is of a general nature and is intended to be used in conjunction with the recommendations and advice of your health care practitioner. Every effort has been made to ensure that the information provided is accurate and complete at the time it is provided to you however, as your needs change, or, as new information becomes available, different or additional instructions may be required. ?? If you have questions, please consult with your primary care provider or pharmacist, as appropriate. This information is not intended to serve as substitution for assessment and evaluation by a qualified health care provider. If you do not have a primary care provider, you may find a [facility] provider by calling [facility] [email or web address] Link at [phone]. * Sara Solomon: PERFORM Event Display: Patient Education/Instruction Authored Date: [id number] Ambulatory Adult Visit Summary [facility] [address] [place] [address] Name: EDGAR GARCIA : 1975?? Visit: 09/15/2023 08:42?? Ambulatory Visit Instructions ?? Your Care Team Primary Care Provider Lacey Ibarra NP? This Visit Provider Lacey Ibarra NP. Your Diagnosis Depression with anxiety Lupus Osteonecrosis of left hip Vitals Signs Pulse Rate: 74 bpm Height: 158 cm Systolic Blood Pressure: 120 mm Hg Weight: 82.3 kg Diastolic Blood Pressure: 75 mm Hg Body Mass Index:??32.97 kg/m2??Critical Oxygen Saturation: 99 % Body surface area: 1.9 What to do next Instructions From Your Provider [email or web address] [facility] [address] [place] [address] ?? 12 ct Follow-Up Appointments Follow Up with??Stacey GARCIA, Lacey Thomas Why: for annual exam in 4-6 months Where: ?? Future Orders Fecal Occult Blood Immunochemical (Fecal Occult Blood Immunochemical FIT) - Routine, Once, 07/02/2413:41:00 EDT, [facility], Stool?? Fecal Occult Blood Immunochemical (Fecal Occult Blood Immunochemical FIT) - Routine, Once, :32:00 EDT, [facility], Stool?? Fecal Occult Blood Immunochemical (Fecal Occult Blood Immunochemical FIT) - Routine, Once, 247:51:00 EDT, [facility], Stool?? Medications The list below reflects the information in our records and provided by you today along with any changes made during this visit. Please continue your medications until treatment is completed or stopped by your provider. If this is different from the information you have or there are other questions,please contact the prescribing provider. What How Much When Why Instructions Changed Duloxetine (DULoxetine 40 mg oral delayed release capsule) 1 capsule Oral Daily Duration: 90 Days do not crush or chew ?? Pickup at [facility]/pharmacy #[id number] Changed Meloxicam (meloxicam 15 mg oral tablet) See instructions TAKE 1 TABLET BY MOUTH EVERY OTHER DAY ?? Unchanged Acetaminophen (acetaminophen 325 mg oral tablet) 650 Milligram Oral Every 6 hours Unchanged Alendronate (alendronate 70 mg oral tablet) See instructions 1 tablet By Mouth, once weekly, with 6-8 oz plain water, at least 30 minutes before first food, beverage, or medication of the day ?? Unchanged Calcium And Vitamin D Combination (Caltrate 600 + D oral tablet) 1 tab(s) Oral Twice a day Unchanged Cholecalciferol (Vitamin D3 5000 intl units oral tablet) See instructions 1 tablet By Mouth weekly ?? Unchanged Durable Medical Equipment (BD 1ML 25G 1 inch syringe) See instructions use 1 syringe weekly to inject SQ ??methotrexate as directed ?? Unchanged Durable Medical Equipment (for med administration) See instructions BD 3ml 25G 1 inch syringe Use one syringe weekly for the administration of medication ?? Unchanged Durable Medical Equipment (Insulin Syringe, BD Ultra-Fine 1 cc 30 G x 12.7 mm (1/ 2in)) See instructions use one syringe with each medication administration every 28 days ?? Unchanged Ferrous Gluconate (ferrous gluconate 324 mg oral tablet) 1 tab(s) Oral Twice a day IF MENSTRUATING, INCREASE TO 3 TIMES DAILY. 30 DAY SUPPLY. ?? Unchanged Fluticasone Nasal (Flonase Allergy Relief 50 mcg/ inh nasal spray) See instructions Cough 1 sprays Daily in each nostril ?? Unchanged Folic Acid (folic acid 1 mg oral tablet) 1 tab(s) Oral Daily EXCEPT THE DAY YOU TAKE METHOTREXATE. ?? Unchanged Gabapentin (gabapentin 100 mg oral capsule) 1 capsule Oral 3 times a day Unchanged Golimumab (Simponi SmartJect 50 mg/ 0.5 mL subcutaneous solution) See instructions INJECT 50MG SUBCUTANEOUSLY EVERY 28 DAYS ?? Unchanged Methotrexate (methotrexate 25 mg/ mL injectable solution) 25 Milligram Subcutaneous Injection Every week Duration: 30 Days Unchanged Milk of Magnesia (Milk of Magnesia Liquid) 30 Milliliter Oral Daily as needed for Constipation Unchanged Miscellaneous Rx (BD 3 ML SYRINGE 25GX1 25G X 1 Miscellaneous) See instructions USE ONE SYRINGE WEEKLY FOR THE ADMINISTRATION OF MEDICATION ?? Unchanged PredniSONE (predniSONE 5 mg oral tablet) 1 tab(s) Oral Daily Rheumatoid arthritis Duration: 90 Days Pharmacy Information [facility]/pharmacy #[id number]: [address] [place] [phone] Medications and Immunizations Administered Medications Given During Visit No medications given during this visit.?? Allergies (NKA means No Known Allergies) sulfa drugs??(rash and fever) Common Emergency Awareness Tips IS IT A STROKE? Act FAST and Check for these signs: FACE Does the face look uneven? ARM Does one arm drift down? SPEECH Does their speech sound strange? TIME Call at any sign of stroke ?? Heart Attack Signs Chest discomfort: Most heart attacks involve discomfort in the center of the chest and lasts more than a few minutes, or goes away and comes back. It can feel like uncomfortable pressure, squeezing, fullness or pain. Discomfort in upper body: Symptoms can include pain or discomfort in one or both arms, back, neck, jaw or stomach. Shortness of breath: With or without discomfort. Other signs: Breaking out in a cold sweat, nausea, or lightheaded. Remember, MINUTES DO MATTER. If you experience any of these heart attack warning signs, call to get immediate medical attention! ?? Smoking can increase your chances of developing chronic health problems and can cause harmful effects to other family members in your house. If you smoke, you are strongly encouraged to quit. Please call [facility] [email or web address] Link at [phone] or [phone] ([phone]) or log in to [email or web address] for referrals to smoking cessation programs. ?? The National Suicide Prevention Hotline is available 21/10 if you or someone you know needs to find a reason to keep living. By calling 8-523-614-[employer] (7583) you'll be connected to a skilled, trained counselor at a crisis center in your area. [facility] [email or web address] Portal You can view and manage your care through the patient portal or by using a health care arnaldo of your choosing. [employer] is a website that allows you to securely view your medical information including your hospital discharge summary, office visit summaries, medications and follow-up visits. You can also request appointments, renew medications, and request access to your medical information using a health care arnaldo of your choosing, or just ask a question. You can enroll at [email or web address] or register during your next office visit. [facility], in keeping with [facility] guidance, no longer requires face masks for staff, patientsor visitors in most situations. Similiar to time spent indoors at other locations, there is the chance that you were exposed to repiratory viruses during your time with us (such as flu or COVID-19). If you develop symptoms concerning for a viral respiratory infection, please seek testing (and treatment if indicated) from your medical provider or home test kit. ?? Disclaimer: The information provided is of a general nature and is intended to be used in conjunction with the recommendations and advice of your health care practitioner. Every effort has been made to ensure that the information provided is accurate and complete at the time it is provided to you however, as your needs change, or, as new information becomes available, different or additional instructions may be required. ?? If you have questions, please consult with your primary care provider or pharmacist, as appropriate. This information is not intended to serve as substitution for assessment and evaluation by a qualified health care provider. If you do not have a primary care provider, you may find a [facility] provider by calling [facility] [email or web address] [facility] at [phone]. Patient Care team information Care Team Personnel Name: Krystina Goldsmith RN Position: [facility] RN Member Role: Primary Care Nurse Name: Lacey Ibarra NP Position: [facility] PCO Associate Professional Member Role: PCP Address: Address: [address] [place] [id number] Name: Edna Mallory Position: [facility] Outreach Member Role: Lif[employer] Consulting Physician Name: Silvia Whaley RN Position: [facility] Onco RN Member Role: Primary Care Nurse Name: Tarah De Leon RN Position: [facility] AMB Nurse Member Role: Primary Care Nurse Care Team Related Persons Name: JIMENEZ GARCIA Address: [address] [address] Name: WILLY GARCIA Address: [address] [address]
--- OUTSIDE RECORDS SUMMARY | 2023-12-12 20:30 | XMS_ITS | Continuity of Care Document ---
Author Organization [facility] Address [address] [place] [address]- Care Team Providers Care Resource Conservation Specialist Name Role Phone Stacey Lacey GARCIA Primary Care Physician Encounter [facility] Date(s): 04/25/21 - 05/25/21 [facility] [address] [place] [address]- Allergies, Adverse Reactions, Alerts Substance Reaction Severity [...] Mouth, Daily, # 91 tablet, 0 Refills, [id number], 91, TAKE 1 TABLET BY MOUTH EVERY [...]
--- OUTSIDE RECORDS SUMMARY | 2023-12-12 20:30 | XMS_ITS | Continuity of Care Document ---
Author Organization [facility] Kali Address [address] [place] [address]- Care Team Providers Care Powered Bridge Specialist Name Role Phone Stacey COTTON PULLER, Lacey Thomas Primary Care Physician [phone] Encounter [facility] Date(s): 02/08/22 - 03/10/22 [facility] Adult [address] [place] [address]- Attending Physician: Dennis López Admitting Physician: AdmtrDennis Referring Physician: Admtr, ArKaila Allergies, Adverse Reactions, Alerts Substance Reaction Severity [...] 0 Refills, Maintenance, 11/09/21 8:16:00 EDT, Tablet, [facility], Partial fill upon patient [...] 0 Refills, Maintenance, 11/09/21 8:20:00 EDT, Capsule, [facility], Partial fill upon patient request if the prescription is... Start Date: 11/09/21 Status: Ordered duloxetine 20 mg oral enteric coated capsule 1 capsule = 20 mg, By Mouth, Daily at bedtime, # 30 capsule, 1 Refills, Maintenance, 10/16/21 13:16:00 EDT, EC Capsule, [facility], Partial fill upon patient request if the prescription is for a schedule II opioid drug., 160.02, cm, 0... Start Date: 10/16/21 Stop Date: 12/15/21 Status: Ordered ferrous gluconate 324 mg oral tablet 1 tablet, By Mouth, 2 times a day, IF MENSTRUATING, INCREASE TO 3 TIMES DAILY. 30 DAY SUPPLY., # 70tablet, 1 Refills, Maintenance, 12/17/21 9:20:00 EDT, [id number], 158, cm, 12/13/21 10:52:00 EDT, Height, 78, kg, 12/13/21 10:52:00 EDT, Dry Weight Start Date: 12/17/21 Status: Ordered folic acid 1 mg oral tablet 1, tablet, By Mouth, Daily, EXCEPT THE DAY YOU TAKE METHOTREXATE., # 26 tablet, Refills 6, Tot. Refills 6, Maintenance, 03/02/22 11:56:00 EST, Route to Pharmacy Electronically, [facility]/pharmacy #[id number], 158, cm, 03/02/22 11:30:00 EST, Height, 78, kg, ... Start Date: 03/02/22 Status: Ordered methotrexate 2.5 mg oral tablet See Instructions, 6 tablet By Mouth Every week, # 30 tablet, 6 Refills, Maintenance, 03/02/22 11:56:00 EST, [facility]/pharmacy #[id number], Partial fill upon patient request if [...] tablet, 2 Refills, Maintenance, 03/10/22 10:53:00 EST, [facility], 158, cm, 03/02/22 11:30:00 [...] 3 Refills, Maintenance, 03/05/22 15:57:00 EST, Solution, [facility], Partial fill upon patient request if the prescription is for a schedule II opioid drug., 158, cm, 12... Start Date: 03/05/22 Status: Ordered Simponi SmartJect 50 mg/0.5 mL subcutaneous solution 0.5 mL = 50 mg, Subcutaneous Injection, Every 30 days, # 1 each, 0 Refills, Maintenance, 03/06/22 12:04:00 EST, Solution, [facility], Partial fill upon patient request if the prescription is for a schedule II opioid drug., 158, cm, 12... Start Date: 03/06/22 Status: Ordered Simponi SmartJect 50 mg/0.5 mL subcutaneous solution = 50 mg, Subcutaneous Infusion, Every 28 days, # 30 each, 3 Refills, Maintenance, 03/06/22 12:04:00EST, [facility], Partial fill upon patient request if the prescription is for a schedule II opioid drug., 158, cm, 03/02/22 11:30:00 E... 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 Sched pt for 6-9-16 with MB Do you know what to do in case of an emergency? Yes * Event Display: Non BH Lab Results Authored Date: * Event Display: Laboratory Result Scanned Authored Date: * Event Display: Laboratory Result Scanned Authored Date: * Event Display: Non BH Lab Results Authored Date: Patient Care team information Care Team Personnel Name: Sherine Umaña RN Position: [facility] RN Member Role: Primary Care Nurse Name: Krystina Goldsmith RN Position: [facility] RN Member Role: Primary Care Nurse Name: Lacey Ibarra NP Position: [facility] PCO Associate Professional Member Role: PCP Address: Address: [address] [place] [id number] Name: Edna Mallory Position: [facility] Outreach Member Role: Lifetime Consulting Physician Name: Silvia Whaley RN Position: [facility] Onco RN Member Role: Primary Care Nurse Name: Tarah De Leon RN Position: [facility] RN Member Role: Primary Care Nurse Care Team Related Persons Name: JIMENEZ GARCIA Address: home [address] [place] [id number] Name: WILLY GACRIA Address: [address] [address]
--- OUTSIDE RECORDS SUMMARY | 2023-12-12 20:30 | XMS_ITS | Continuity of Care Document ---
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
--- OUTSIDE RECORDS SUMMARY | 2023-12-12 20:30 | XMS_ITS | Continuity of Care Document ---
Author Organization [facility] Address [address] [place] [address]- Care Team Providers Care Senior Business Development Manager Name Role Phone Stacey GARCIA, Lacey Thomas Primary Care Physician Encounter [facility] Date(s): 11/13/21 - 02/21/22 [facility] [address] [place] [address]- Discharge Disposition: A-D/C Home Attending Physician: Nura [...] 0 Refills, Maintenance, 11/09/21 8:16:00 EDT, Tablet, [facility], Partial fill upon patient [...] 0 Refills, Maintenance, 11/09/21 8:20:00 EDT, Capsule, [facility], Partial fill upon patient request if the prescription is... Start Date: 11/09/21 Status: Ordered duloxetine 20 mg oral enteric coated capsule 1 capsule = 20 mg, By Mouth, Daily at bedtime, # 30 capsule, 1 Refills, Maintenance, 10/16/21 13:16:00 EDT, EC Capsule, [facility], Partial fill upon patient request if the prescription is for a schedule II opioid drug., 160.02, cm, 0... Start Date: 10/16/21 Stop Date: 12/15/21 Status: Ordered ferrous gluconate 324 mg oral tablet 1 tablet, By Mouth, 2 times a day, IF MENSTRUATING, INCREASE TO 3 TIMES DAILY. 30 DAY SUPPLY., # 70tablet, 1 Refills, Maintenance, 12/17/21 9:20:00 EDT, [id number], 158, cm, 12/13/21 10:52:00 EDT, Height, 78, kg, 12/13/21 10:52:00 EDT, Dry Weight Start Date: 12/17/21 Status: Ordered folic acid 1 mg oral tablet 1, tablet, By Mouth, Daily, EXCEPT THE DAY YOU TAKE METHOTREXATE., # 26 tablet, Refills 6, Maintenance, 01/12/22 8:49:00 EDT, Route to Pharmacy Electronically, [id number], 158, cm, 12/13/21 10:52:00 EDT, Height, 78, kg, 12/13/21 10:52:00 EDT, Dry... Start Date: 01/12/22 Status: Ordered methotrexate 2.5 mg oral tablet 4 tablet = 10 mg, By Mouth, Every week, # 32 tablet, 6 Refills, Maintenance, 03/07/21 16:05:00 EST,[facility]/pharmacy #[id number], Partial fill upon patient [...] tablet, 2 Refills, Maintenance, 11/24/21 9:42:00 EDT, [facility], 158, cm, 11/09/21 6:57:00 [...] Confirmed Active Vitamin D deficiency Confirmed Active Vital Signs Most recent to oldest [Reference Range]: 1 Height 158 cm (12/13/21 10:52 AM) Weight 78.0 kg (12/13/21 10:52 AM) Pulse Rate [55-90 bpm] 83 bpm (12/13/21 10:52 AM) Body Mass Index [18.5-24.99] 31.24 *>HHI* (12/13/21 10:52 AM) Blood Pressure [90-138/55-84 mm Hg] 136/ 81mm Hg (12/13/21 10:52 AM) Temperature [96.8-100.4 DegF] 98.3 DegF (12/13/21 10:52 AM) Blood pressure sites Arm, left (12/13/21 10:52 AM) Temperature Route Temporal (12/13/21 10:52 AM) Dry Weight 78.0 kg (12/13/21 10:52 AM) Weight Obtained Via Standing scale (12/13/21 10:52 AM) Dry Weight Obtained Via Standing scale (12/13/21 10:52 AM) Social History Social History Type Response Smoking Status Never smoker entered on: 09/07/15 Sex Note * Mary Perkins: PERFORM, SIGN, VERIFY Event Display: Patient Education/Instruction Authored Date: [id number] [facility] *Heme/Onc Adult Clinical Summary Name EDGAR GARCIA Age 46 Years 1975 PCP Stacey JOSE, Lacey Thomas PCP Visit Date 11/13/2021 09:41:00 Additional Instructions: Scheduled Appointments?? Future Appointments ?*[facility] ?[address]??[place],??[address] ?Phone:??--?Fax:??-- ?Appt. Date:??12/20/2021?10:00 AM ?Scheduled Provider:??Pablito Garcia MD ?*[facility] ?[address]??[place],??[place],??[address] ?Phone:??--?Fax:??-- ?Appt. Date:??12/27/2021?1:20 PM ?Scheduled Provider:??Roseann Ordonez MD ?*[facility] ?Phone:??--?Fax:??-- ?Appt. Date:??02/11/2022?9:30 AM ?Scheduled Provider:??Abe Davis MD Follow-Up Instructions ?? With: Address: When: kimberlynmike Mcdaniel [address] [facility] [place] [address] [facility] (1) 03/21/2022 10:00 AM Diagnosis Medications: Please continue your medications until treatment is completed or stopped by your provider. Discuss any questions related to medications with your provider. Medications to Continue Taking That Have Changed These medications were not printed or sent to your pharmacy - PredniSONE (predniSONE 5 mg oral tablet) 1 tab(s) Oral Daily. Refills: 2. Next Dose: Medications to Continue with No Changes These medications were not printed or sent to your pharmacy Acetaminophen (acetaminophen 325 mg oral tablet) 650 Milligram Oral every 6 hours. Next Dose: apixaban (apixaban 2.5 mg oral tablet) 1 tab(s) Oral twice a day for 30 Days. Refills: 0. Next Dose: Docusate (docusate sodium 50 mg oral capsule) 2 capsule Oral twice a day. Take 1 tablet two times aday with plenty of water. Refills: 0. Next Dose: Duloxetine (duloxetine 20 mg oral enteric coated capsule) 1 capsule Oral Daily at Bedtime for 30 Days. Refills: 1. Next Dose: Ferrous Gluconate (ferrous gluconate 324 mg oral tablet) 1 tab(s) Oral twice a day. IF MENSTRUATING, INCREASE TO 3 TIMES DAILY. 30 DAY SUPPLY.. Refills: 1. Next Dose: Methotrexate (methotrexate 2.5 mg oral tablet) 4 tab(s) Oral every week. Refills: 6. Next Dose: Milk of Magnesia (Milk of Magnesia Liquid) 30 Milliliter Oral Daily as needed Constipation. Next Dose: Pantoprazole (pantoprazole 40 mg oral delayed release tablet) 40 Milligram Oral Daily for 30 Days. Take 1 capsule daily. Refills: 0. Next Dose: Polyethylene Glycol 3350 (MiraLax Powder) 17 gram Oral Daily as needed Constipation. Next Dose: Senna (senna 187 mg oral tablet) 1 tab(s) Oral Daily at Bedtime as needed as needed for constipation. Next Dose: Allergy Info:?? sulfa drugs Medications Given This Visit Future Orders ?No future orders Vital Signs Height 158 cm Weight 78.0 kg BMI 31.24 Blood Pressure 136 mm Hg/81 mm Hg Temperature 98.3 DegF Pulse Rate 83 bpm Respiratory Rate 02 Sat Mode of Delivery / You can now view a summary of your hospital visit from the comfort of your home through a free online portal called [employer] [facility]. [employer] [facility] is a website that allows you to securely view your medical information including discharge summary, medications and follow-up visits. ??You can alsosend a secure electronic message to your doctor???s office to request appointments, renew medications or just ask a question. You can enroll at [email or web address] or register during your next office visit. [...] primary care provider, you may find a [facility] provider by calling [facility] [employer] [facility] at [phone]. For information about the plan of care [...] Team Personnel Name: Sherine Umaña RN Position: [facility] RN Member Role: Primary Care Nurse Name: Krystina Goldsmith RN Position: [facility] RN Member Role: Primary Care Nurse Name: Lacey Ibarra NP Position: [facility] PCO Associate Professional Member Role: PCP Address: Address: [address] [place] [id number] Name: Edna Mallory Position: [facility] Outreach Member Role: Lifetime Consulting Physician Name: Silvia Whaley RN Position: [facility] Onco RN Member Role: Primary Care Nurse Name: Tarah De Leon RN Position: [facility] RN Member Role: Primary Care Nurse Care Team Related Persons Name: JIMENEZ GARCIA Address: home [address] [place] [id number] Name: WILLY GARCIA Address: [address] [address]
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
--- OUTSIDE RECORDS SUMMARY | 2023-12-12 20:30 | XMS_ITS | Continuity of Care Document ---
Author Organization [facility] Address [address] [place] [address]- Care Team Providers Care Sales And Business Development Manager Name Role Phone Stacey Lacey GARCIA Primary Care Physician Encounter [facility] Date(s): 06/26/21 - 08/02/21 [facility] [address] [place] [address] Attending Physician: Abe Davis MD Allergies, Adverse [...] capsule = 20 mg, By Mouth, Daily, for 30 days, # 30 capsule, 0 Refills, Acute 08/25/21 7:21:00 EDT, 07/26/21 7:21:00 EDT, EC Capsule, [id number], 158, cm, 07/26/21 6:54:00 EDT, Height, 87.6, kg, 07/23/21 10:23:00 EDT, Dry Weight Start Date: 07/26/21 Stop Date: 08/25/21 Status: Ordered ethinyl estradiol-levonorgestrel biphasic extended cycle oral tablet 1 tablet, By Mouth, Daily, # 91 tablet, 0 Refills, [id number], 91, TAKE 1 TABLET BY MOUTH EVERY DAY, 161.5, cm, 03/19/21 11:22:00 EST, Height Start Date: 03/26/21 Status: Ordered Tramadol = 50 mg, By [...] cycle(Confirmed) Active History of hip replacement(Confirmed) 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
--- OUTSIDE RECORDS SUMMARY | 2023-12-12 20:30 | XMS_ITS | Continuity of Care Document ---
Author Organization [facility] Address [address] [place] [address]- Care Team Providers Care Bricklayer Sewer Name Role Phone Stacey MANAGER OF DATA, Lacey Thomas Primary Care Physician Encounter [facility] Date(s): 03/13/22 - 04/12/[address] [address]- Attending Physician: Dennis López Admitting Physician: Dennis [...] Refills, Maintenance, 11/09/21 8:16:00 EDT, Tablet, [facility], Partial fill upon patient [...] Refills, Maintenance, 11/09/21 8:20:00 EDT, Capsule, [facility], Partial fill upon patient request if the prescription is... Start Date: 11/09/21 Status: Ordered duloxetine 20 mg oral enteric coated capsule 1 capsule = 20 mg, By Mouth, Daily at bedtime, # 30 capsule, 1 Refills, Maintenance, 10/16/21 13:16:00 EDT, EC Capsule, [facility], Partial fill upon patient request if the prescription is for a schedule II opioid drug., 160.02, cm, 0... Start Date: 10/16/21 Stop Date: 12/15/21 Status: Ordered ferrous gluconate 324 mg oral tablet 1 tablet, By Mouth, 2 times a day, IF MENSTRUATING, INCREASE TO 3 TIMES DAILY. 30 DAY SUPPLY., # 70tablet, 1 Refills, Maintenance, 12/17/21 9:20:00 EDT, [id number], 158, cm, 12/13/21 10:52:00 EDT, Height, 78, kg, 12/13/21 10:52:00 EDT, Dry Weight Start Date: 12/17/21 Status: Ordered folic acid 1 mg oral tablet 1, tablet, By Mouth, Daily, EXCEPT THE DAY YOU TAKE METHOTREXATE., # 26 tablet, Refills 6, Tot. Refills 6, Maintenance, 03/02/22 11:56:00 EST, Route to Pharmacy Electronically, [facility]/pharmacy #[id number], 158, cm, 03/02/22 11:30:00 EST, Height, 78, kg, ... Start Date: 03/02/22 Status: Ordered methotrexate 2.5 mg oral tablet See Instructions, 6 tablet By Mouth Every week, # 30 tablet, 6 Refills, Maintenance, 03/02/22 11:56:00 EST, [facility]/pharmacy #[id number], Partial fill upon patient request if the prescription is for a scheduleII opioid drug., 158, cm, 03/02/22 11:30:00 EST, .. Start Date: 03/02/22 Status: Ordered Milk of [...] tablet, 2 Refills, Maintenance, 04/03/22 16:03:00 EST, [facility], 158, cm, 03/02/22 11:30:00 [...] 3 Refills, Maintenance, 03/05/22 15:57:00 EST, Solution, [facility], Partial fill upon patient request if the prescription is for a schedule II opioid drug., 158, cm, 12... Start Date: 03/05/22 Status: Ordered Simponi SmartJect 50 mg/0.5 mL subcutaneous solution 0.5 mL = 50 mg, Subcutaneous Injection, Every 30 days, # 1 each, 0 Refills, Maintenance, 03/06/22 12:04:00 EST, Solution, [facility], Partial fill upon patient request if the prescription is for a schedule II opioid drug., 158, cm, 12... Start Date: 03/06/22 Status: Ordered Simponi SmartJect 50 mg/0.5 mL subcutaneous solution = 50 mg, Subcutaneous Infusion, Every 28 days, # 30 each, 3 Refills, Maintenance, 03/06/22 12:04:00EST, [facility], Partial fill upon patient request if the prescription is for a schedule II opioid drug., 158, cm, 03/02/22 11:30:00 E... 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 Depression with [...] Team Personnel Name: Sherine Umaña RN Position: [facility] RN Member Role: Primary Care Nurse Name: Krystina Goldsmith RN Position: [facility] RN Member Role: Primary Care Nurse Name: Lacey Ibarra NP Position: [facility] PCO Associate Professional Member Role: PCP Address: Address: [address] [place] [id number]- [place] Name: Edna Mallory Position: [facility] Outreach Member Role: Lifetime Consulting Physician Name: Silvia Whaley RN Position: [facility] Onco RN Member Role: Primary Care Nurse Name: Tarah De Leon RN Position: S RN Member Role: Primary Care Nurse Care Team Related Persons Name: JIMENEZ GARCIA Address: [address] [address] Name: WILLY GARCIA Address: [address] [address]
--- OUTSIDE RECORDS SUMMARY | 2023-12-12 20:30 | XMS_ITS | Continuity of Care Document ---
Author Organization [facility] Address [address] [place] [address]- Care Team Providers Care Dining Room Tables Set Up Attendant Name Role Phone Lacey Ibarra NP Primary Care Physician Encounter [facility] Date(s): 01/13/23 - 01/20/23 [facility] [address] [place] [address]- Encounter Diagnosis Annual physical exam(Discharge Diagnosis) - 01/13/23 Severe obesity (BMI 35.0-39.9) with comorbidity(Discharge Diagnosis) - 01/13/23 Rheumatoid arthritis, erosive, seronegative(Discharge Diagnosis) - 01/13/23 Iron deficiency anemia(Discharge Diagnosis) - 01/13/23 Thrombocytosis(Discharge Diagnosis) - 01/13/23 Vitamin D deficiency(Discharge Diagnosis) - 01/13/23 Depression with anxiety(Discharge Diagnosis) - 01/13/23 detention systemic steroid user(Discharge Diagnosis) - 01/13/23 Attending Physician: Lacey Ibarra NP Allergies, Adverse [...] Given tetanus/diphtheria/pertussis, acel(Tdap) 08/04/15 Given 1Result Comment: [id number] 2Result Comment: Booster Medications acetaminophen 325 mg [...] 6 Refills, Maintenance, 12/16/22 16:28:00 EDT, Tablet, [facility], Partial fill upon patient request if the prescription is for a schedule II opioid drug., 1 tablet By Mouth 2 times a da... Start Date: 12/16/22 Status: Ordered duloxetine 20 mg oral enteric coated capsule 1 capsule = 20 mg, By Mouth, Daily, # 90 capsule, 1 Refills, Maintenance, 01/13/23 10:04:00 EDT, ECCapsule, [facility], 158, cm, 01/13/23 9:29:00 EDT, Height, 78, kg, 12/13/21 10:52:00 EDT, Dry Weight Start Date: 01/13/23 Stop Date: 07/12/23 Status: Ordered ferrous gluconate 324 mg oral tablet 1 tablet, By Mouth, 2 times a day, IF MENSTRUATING, INCREASE TO 3 TIMES DAILY. 30 DAY SUPPLY., # 70tablet, 1 Refills, Maintenance, 12/17/21 9:20:00 EDT, [id number], 158, cm, 12/13/21 10:52:00 EDT, Height, 78, kg, 12/13/21 10:52:00 EDT, Dry Weight Start Date: 12/17/21 Status: Ordered folic acid 1 mg oral tablet 1, tablet, By Mouth, Daily, EXCEPT THE DAY YOU TAKE METHOTREXATE., # 26 tablet, Refills 6, Tot. Refills 6, Maintenance, 03/02/22 11:56:00 EST, Route to Pharmacy Electronically, [facility]/pharmacy #[id number], 158, cm, 03/02/22 11:30:00 EST, Height, 78, kg, ... Start Date: 03/02/22 Status: Ordered meloxicam 15 mg oral tablet 1 tablet, By Mouth, Every other day, # 15 tablet, 4 Refills, Maintenance, 11/14/22 8:23:00 EDT, [id number], 158, cm, 07/17/22 8:31:00 EDT, Height, 78, kg, 12/13/21 10:52:00 EDT, Dry Weight Start Date: 11/14/22 Status: Ordered methotrexate 25 mg/mL injectable solution = 25 mg, Subcutaneous Injection, Every week, # 4 mL, 6 Refills, Maintenance, 12/16/22 17:05:00 EDT,[facility], Partial fill upon patient [...] tablet, 0 Refills, Maintenance, 01/13/23 7:47:00 EDT, [facility], Partial fill upon patient request if the prescription is for a schedule II opioid drug., 158, cm, 11/21/22 9:48:00 EDT, Height,... Start Date: 01/13/23 Status: Ordered predniSONE 5 mg oral tablet 1 tablet = 5 mg, By Mouth, Daily, # 30 tablet, 4 Refills, Maintenance, 10/18/22 15:43:00 EDT, [facility], Partial fill upon patient request if the prescription is for a schedule II opioid drug., 158, cm, 07/17/22 8:31:00 EDT, Height,... Start Date: 10/18/22 Stop Date: 03/17/23 Status: Ordered Simponi 50 mg/0.5 mL subcutaneous solution 0.5 mL = 50 mg, Subcutaneous Injection, Every 30 days, # 1 each, 3 Refills, Maintenance, 03/05/22 15:57:00 EST, Solution, [facility], Partial fill upon patient request if the prescription is for a schedule II opioid drug., 158, cm, 12... Start Date: 03/05/22 Status: Ordered Simponi SmartJect 50 mg/0.5 mL subcutaneous solution 0.5 mL = 50 mg, Subcutaneous Injection, Every 30 days, # 1 each, 0 Refills, Maintenance, 03/06/22 12:04:00 EST, Solution, [facility], Partial fill upon patient request if the prescription is for a schedule II opioid drug., 158, cm, 12... Start Date: 03/06/22 Status: Ordered Simponi SmartJect 50 mg/0.5 mL subcutaneous solution = 50 mg, Subcutaneous Infusion, Every 28 days, # 30 each, 3 Refills, Maintenance, 03/06/22 12:04:00EST, [facility], Partial fill upon patient request if the prescription is for a schedule II opioid drug., 158, cm, 03/02/22 11:30:00 E... 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 Depression with [...] Effective Dates Health Status Clinical Service Informant Annual physical exam Discharge Diagnosis 01/13/23 Severe obesity (BMI 35.0-39.9) with comorbidity Discharge Diagnosis 01/13/23 Rheumatoid arthritis, erosive, seronegative Discharge Diagnosis 01/13/23 Iron deficiency anemia Discharge Diagnosis 01/13/23 Thrombocytosis Discharge Diagnosis 01/13/23 Vitamin D deficiency Discharge Diagnosis 01/13/23 Depression with anxiety Discharge Diagnosis 01/13/23 detention systemic steroid user Discharge Diagnosis 01/13/23 Vital Signs Most recent to oldest [Reference Range]: 1 Height 158 cm (01/13/23 9:29 AM) Weight 88.0 kg (01/13/23 9:29 AM) Oxygen Saturation [94-100 %] 98 % (01/13/23 9:29 AM) Pulse Rate [55-90 bpm] 82 bpm (01/13/23 9:29 AM) Body Mass Index [18.5-24.99 kg/m2] 35.25 kg/m2 *>HHI* (01/13/23 9:29 AM) Blood Pressure [90-138/55-84 mm Hg] 137/ 82mm Hg (01/13/23 9:29 AM) Temperature [96.8-100.4 DegF] 97.9 DegF (01/13/23 9:29 AM) Mode of Delivery (Oxygen) Room air (01/13/23 9:29 AM) Blood pressure sites Arm, left (01/13/23 9:29 AM) Temperature Route Oral (01/13/23 9:29 AM) Weight Obtained Via Standing scale (01/13/23 9:29 AM) Social History Social History Type Response Smoking Status Never smoker entered on: 09/07/15 Sex Patient Care team information Care Team Personnel Name: Sherine Umaña RN Position: [facility] RN Member Role: Primary Care Nurse Name: Krystina Goldsmith RN Position: [facility] RN Member Role: Primary Care Nurse Name: Lacey Ibarra NP Position: [facility] PCO Associate Professional Member Role: PCP Address: Address: [address] [place] [phone]- Name: Edna Mallory Position: [facility] Outreach Member Role: Lifetime Consulting Physician Name: Silvia Whaley RN Position: [facility] Onco RN Member Role: Primary Care Nurse Name: Tarah De Leon RN Position: [facility] SN RN Member Role: Primary Care Nurse Care Team Related Persons Name: JIMENEZ GARCIA Address: home [address] [place] [id number] Name: WILLY GARCIA Address: [address] [address]
--- OUTSIDE RECORDS SUMMARY | 2023-12-12 20:30 | XMS_ITS | Continuity of Care Document ---
Author Organization [facility] Address [address] [place] [address]- Care Team Providers Care Bench Lathe Operator Name Role Phone Stacey DIRECTOR PHARMACEUTICAL, Lacey Thomas Primary Care Physician Encounter [facility] Date(s): 09/28/21 - 01/26/[address] [address]- Attending Physician: Not on Staff, Attending MD [...] 0 Refills, Maintenance, 11/09/21 8:16:00 EDT, Tablet, [facility], Partial fill upon patient [...] 0 Refills, Maintenance, 11/09/21 8:20:00 EDT, Capsule, [facility], Partial fill upon patient request if the prescription is... Start Date: 11/09/21 Status: Ordered duloxetine 20 mg oral enteric coated capsule 1 capsule = 20 mg, By Mouth, Daily at bedtime, # 30 capsule, 1 Refills, Maintenance, 10/16/21 13:16:00 EDT, EC Capsule, [facility], Partial fill upon patient [...] 12/17/21 9:20:00 EDT, [facility] [id number], 158, cm, 12/13/21 10:52:00 EDT, Height, 78, kg, 12/13/21 10:52:00 EDT, Dry Weight Start Date: 12/17/21 Status: Ordered folic acid 1 mg oral tablet 1, tablet, By Mouth, Daily, EXCEPT THE DAY YOU TAKE METHOTREXATE., # 26 tablet, Refills 6, Maintenance, 01/12/22 8:49:00 EDT, Route to Pharmacy Electronically, [id number], 158, cm, 12/13/21 10:52:00 EDT, Height, 78, kg, 12/13/21 10:52:00 EDT, Dry... 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
--- OUTSIDE RECORDS SUMMARY | 2023-12-12 20:30 | XMS_ITS | Continuity of Care Document ---
Author Organization [facility] Address [address] [place] [address]- Care Team Providers Care Acquisition Marketing Manager Name Role Phone Stacey TAXICAB DRIVERLacey Primary Care Physician Encounter [facility] Date(s): 11/13/21 - 03/13/22 [facility] [address] [place] [phone]- Attending Physician: Abe Davis MD Allergies, Adverse [...] 0 Refills, Maintenance, 11/09/21 8:16:00 EDT, Tablet, [facility], Partial fill upon patient [...] 0 Refills, Maintenance, 11/09/21 8:20:00 EDT, Capsule, [facility], Partial fill upon patient request if the prescription is... Start Date: 11/09/21 Status: Ordered duloxetine 20 mg oral enteric coated capsule 1 capsule = 20 mg, By Mouth, Daily at bedtime, # 30 capsule, 1 Refills, Maintenance, 10/16/21 13:16:00 EDT, EC Capsule, [facility], Partial fill upon patient request if the prescription is for a schedule II opioid drug., 160.02, cm, 0... Start Date: 10/16/21 Stop Date: 12/15/21 Status: Ordered ferrous gluconate 324 mg oral tablet 1 tablet, By Mouth, 2 times a day, IF MENSTRUATING, INCREASE TO 3 TIMES DAILY. 30 DAY SUPPLY., # 70tablet, 1 Refills, Maintenance, 12/17/21 9:20:00 EDT, [facility] ST[id number], 158, cm, 12/13/21 10:52:00 EDT, Height, 78, kg, 12/13/21 10:52:00 EDT, Dry Weight Start Date: 12/17/21 Status: Ordered folic acid 1 mg oral tablet 1, tablet, By Mouth, Daily, EXCEPT THE DAY YOU TAKE METHOTREXATE., # 26 tablet, Refills 6, Tot. Refills 6, Maintenance, 03/02/22 11:56:00 EST, Route to Pharmacy Electronically, [facility]/pharmacy #[id number], 158, cm, 03/02/22 11:30:00 EST, Height, 78, kg, ... Start Date: 03/02/22 Status: Ordered methotrexate 2.5 mg oral tablet See Instructions, 6 tablet By Mouth Every week, # 30 tablet, 6 Refills, Maintenance, 03/02/22 11:56:00 EST, [facility]/pharmacy #[id number], Partial fill upon patient request [...] tablet, 2 Refills, Maintenance, 03/10/22 10:53:00 EST, [facility], 158, cm, 03/02/22 11:30:00 [...] 3 Refills, Maintenance, 03/05/22 15:57:00 EST, Solution, [facility], Partial fill upon patient request if the prescription is for a schedule II opioid drug., 158, cm, 12... Start Date: 03/05/22 Status: Ordered Simponi SmartJect 50 mg/0.5 mL subcutaneous solution 0.5 mL = 50 mg, Subcutaneous Injection, Every 30 days, # 1 each, 0 Refills, Maintenance, 03/06/22 12:04:00 EST, Solution, [facility], Partial fill upon patient request if the prescription is for a schedule II opioid drug., 158, cm, 12... Start Date: 03/06/22 Status: Ordered Simponi SmartJect 50 mg/0.5 mL subcutaneous solution = 50 mg, Subcutaneous Infusion, Every 28 days, # 30 each, 3 Refills, Maintenance, 03/06/22 12:04:00EST, [facility], Partial fill upon patient request if the prescription is for a schedule II opioid drug., 158, cm, 03/02/22 11:30:00 E... 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 Depression with [...] Team Personnel Name: Sherine Umaña RN Position: [facility] RN Member Role: Primary Care Nurse Name: Krystina Goldsmith RN Position: [facility] RN Member Role: Primary Care Nurse Name: Lacey Ibarra NP Position: [facility] PCO Associate Professional Member Role: PCP Address: Address: [address] [place] [id number] Name: Edna Mallory Position: [facility] Outreach Member Role: Lifetime Consulting Physician Name: Silvia Whaley RN Position: [facility] Onco RN Member Role: Primary Care Nurse Name: Tarah De Leon RN Position: [facility] RN Member Role: Primary Care Nurse Care Team Related Persons Name: JIMENEZ GARCIA Address: home [address] [place] [id number] Name: WILLY GARCIA Address: home [address] [place] [address]
--- OUTSIDE RECORDS SUMMARY | 2023-12-12 20:30 | XMS_ITS | Continuity of Care Document ---
Author Organization [facility] Address [address] [place] [address]- Care Team Providers Care Fluoroscope Operator Name Role Phone Stacey TRAFFIC POLICE OFFICER, Lacey Thomas Primary Care Physician Encounter [facility] Date(s): 06/25/23 - 07/25/23 [facility] [address] [place] [address]- Attending Physician: Dennis López Admitting Physician: AdmDennis [...] Given tetanus/diphtheria/pertussis, acel(Tdap) 08/04/15 Given 1Result Comment: [id number] 2Result Comment: Booster Medications acetaminophen 325 mg [...] tablet, 6 Refills, Maintenance, 05/20/23 9:32:00 EST, [facility], Partial fill... Start Date: 05/20/23 [...] Refills, Maintenance, 12/16/22 16:28:00 EDT, Tablet, [facility], Partial fill upon patient request if the prescription is for a schedule II opioid drug., 1 tablet By Mouth 2 times a da... Start Date: 12/16/22 Status: Ordered duloxetine 20 mg oral enteric coated capsule 1 capsule, By Mouth, Daily, # 30 capsule, 5 Refills, Maintenance, 06/24/23 15:42:00 EDT, [facility], 158, cm, 05/19/23 16:05:00 EST, Height, 78, kg, 12/13/21 10:52:00 EDT, Dry Weight Start Date: 06/24/23 Status: Ordered ferrous gluconate 324 mg oral tablet 1 tablet, By Mouth, 2 times a day, IF MENSTRUATING, INCREASE TO 3 TIMES DAILY. 30 DAY SUPPLY., # 70tablet, 1 Refills, Maintenance, 12/17/21 9:20:00 EDT, [id number], 158, cm, 12/13/21 10:52:00 EDT, Height, 78, kg, 12/13/21 10:52:00 EDT, Dry Weight Start Date: 12/17/21 Status: Ordered Flonase Allergy Relief 50 mcg/inh nasal spray See Instructions, 1 sprays Daily in each nostril, # 16 Gm, 0 Refills, Maintenance, 05/08/23 10:58:00 EST, [facility]/pharmacy #[id number], Partial fill upon patient request if the prescription is for a schedule II opioid drug., 158, cm, 01/13/23 9:29:00 EDT, [facility]... Start Date: 05/08/23 Status: Ordered folic acid 1 mg oral tablet 1, tablet, By Mouth, Daily, EXCEPT THE DAY YOU TAKE METHOTREXATE., # 26 tablet, Refills 6, Maintenance, 03/11/23 15:05:00 EST, Route to Pharmacy Electronically, [id number], 158, cm, 01/13/23 9:29:00 EDT, Height, 78, [...] 05/19/23 16:26:00 EST, Route to Pharmacy Electronically, [facility], Partial fill upon patient request if the prescription is for a lucho... Start Date: 05/19/23 Status: Ordered meloxicam 15 mg oral tablet 1 tablet, By Mouth, Every other day, # 15 tablet, 4 Refills, Maintenance, 03/26/23 13:25:00 EST, [facility] 14007, 158, cm, 01/13/23 9:29:00 EDT, Height, 78, [...] Stop 12/12/23 15:43:00 EDT, 03/17/23 15:43:00 EST, [facility], Partial fill upon patient request if the prescription is for a schedule II opioid drug., 158, c... Start Date: 03/17/23 Stop Date: 12/12/23 Status: Ordered Simponi SmartJect 50 mg/0.5 mL subcutaneous solution See Instructions, INJECT 50MG SUBCUTANEOUSLY EVERY 28 DAYS, # 0.5 mL, 3 Refills, Maintenance, 03/11/23 15:07:00 EST, [facility], 158, cm, 01/13/23 9:29:00 EDT, Height, 78, kg, 12/13/21 10:52:00 EDT, Dry Weight Start Date: 03/11/23 Status: Ordered Vitamin D3 5000 intl units oral tablet See Instructions, 1 tablet By Mouth weekly, # 100 tablet, 0 Refills, Maintenance, 02/11/23 14:46:00EST, Tablet, [facility]/pharmacy #[id number], Partial fill upon patient request if the prescription is for a schedule II opioid drug., 158, cm, 01/13/23 9:29:00 EDT... 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 Depression [...] Female : 1975 Associated Diagnoses: None Author: KathleenEdgar lafleur Care Management Discharge Call Note Admit date [...] Team Personnel Name: Krystina Goldsmith RN Position: [facility] RN Member Role: Primary Care Nurse Name: Lacey Ibarra NP Position: [facility] PCO Associate Professional Member Role: PCP Address: Address: [address] [place] [id number] Name: Edna Mallory Position: [facility] Outreach Member Role: Lifetime Consulting Physician Name: Silvia Whaley RN Position: [facility] Onco RN Member Role: Primary Care Nurse Name: Tarah De Leon RN Position: [facility] AMB Nurse Member Role: Primary Care Nurse Care Team Related Persons Name: JIMENEZ GARCIA Address: home [address] [place] [id number] Name: WILLY GARCIA Address: [address] [address]
--- OUTSIDE RECORDS SUMMARY | 2023-12-12 20:30 | XMS_ITS | Continuity of Care Document ---
Author Organization [facility] Reed Kali Address [address] [place] [address]- Care Team Providers Care Cable Installation Manager Name Role Phone Stacey SLIP INJECTOR AND APPLICATOR, Lacey Thomas Primary Care Physician Encounter [facility] [place] Date(s): 07/04/23 - 08/03/23 [facility] Adult [address] [place] [address]- Allergies, Adverse Reactions, Alerts Substance Reaction Severity [...] Given tetanus/diphtheria/pertussis, acel(Tdap) 08/04/15 Given 1Result Comment: [id number] 2Result Comment: Booster Medications acetaminophen 325 mg [...] 6 Refills, Maintenance, 05/20/23 9:32:00 EST, [facility], Partial fill... Start Date: 05/20/23 [...] Refills, Maintenance, 12/16/22 16:28:00 EDT, Tablet, [facility], Partial fill upon patient request if the prescription is for a schedule II opioid drug., 1 tablet By Mouth 2 times a da... Start Date: 12/16/22 Status: Ordered duloxetine 20 mg oral enteric coated capsule 1 capsule, By Mouth, Daily, # 30 capsule, 5 Refills, Maintenance, 06/24/23 15:42:00 EDT, [facility], 158, cm, 05/19/23 16:05:00 EST, Height, 78, kg, 12/13/21 10:52:00 EDT, Dry Weight Start Date: 06/24/23 Status: Ordered ferrous gluconate 324 mg oral tablet 1 tablet, By Mouth, 2 times a day, IF MENSTRUATING, INCREASE TO 3 TIMES DAILY. 30 DAY SUPPLY., # 70tablet, 1 Refills, Maintenance, 12/17/21 9:20:00 EDT, [id number], 158, cm, 12/13/21 10:52:00 EDT, Height, 78, kg, 12/13/21 10:52:00 EDT, Dry Weight Start Date: 12/17/21 Status: Ordered Flonase Allergy Relief 50 mcg/inh nasal spray See Instructions, 1 sprays Daily in each nostril, # 16 Gm, 0 Refills, Maintenance, 05/08/23 10:58:00 EST, [facility]/pharmacy #[id number], Partial fill upon patient request if the prescription is for a schedule II opioid drug., 158, cm, 01/13/23 9:29:00 EDT, [facility]... Start Date: 05/08/23 Status: Ordered folic acid 1 mg oral tablet 1, tablet, By Mouth, Daily, EXCEPT THE DAY YOU TAKE METHOTREXATE., # 26 tablet, Refills 6, Maintenance, 03/11/23 15:05:00 EST, Route to Pharmacy Electronically, [id number], 158, cm, 01/13/23 9:29:00 EDT, Height, 78, [...] 05/19/23 16:26:00 EST, Route to Pharmacy Electronically, [facility], Partial fill upon patient request if the prescription is for a lucho... Start Date: 05/19/23 Status: Ordered meloxicam 15 mg oral tablet 1 tablet, By Mouth, Every other day, # 15 tablet, 4 Refills, Maintenance, 03/26/23 13:25:00 EST, [id number], 158, cm, 01/13/23 9:29:00 EDT, Height, 78, kg, 12/13/21 10:52:00 EDT, Dry Weight Start Date: 03/26/23 Status: Ordered methotrexate 25 mg/mL injectable solution = 25 mg, Subcutaneous Injection, Every week, # 4 mL, 6 Refills, Maintenance, 12/16/22 17:05:00 EDT,[facility], Partial fill upon patient [...] Stop 12/12/23 15:43:00 EDT, 03/17/23 15:43:00 EST, [facility], Partial fill upon patient request if the prescription is for a schedule II opioid drug., 158, c... Start Date: 03/17/23 Stop Date: 12/12/23 Status: Ordered Simponi SmartJect 50 mg/0.5 mL subcutaneous solution See Instructions, INJECT 50MG SUBCUTANEOUSLY EVERY 28 DAYS, # 0.5 mL, 3 Refills, Maintenance, 03/11/23 15:07:00 EST, [facility], 158, cm, 01/13/23 9:29:00 EDT, Height, 78, kg, 12/13/21 10:52:00 EDT, Dry Weight Start Date: 03/11/23 Status: Ordered traMADol 50 mg oral tablet 1 tablet = 50 mg, By Mouth, Every 6 hours, PRN as needed for severe pain, for 7 days, # 28 tablet, 0 Refills, Acute 08/08/23 9:53:00 EDT, 08/01/23 9:53:00 EDT, Tablet, [facility]/pharmacy #[id number], Partial fill upon patient request if the prescription is for a... Start Date: 08/01/23 Stop Date: 08/08/23 Status: Ordered Vitamin D3 5000 intl units oral tablet See Instructions, 1 tablet By Mouth weekly, # 100 tablet, 0 Refills, Maintenance, 02/11/23 14:46:00EST, Tablet, [facility]/pharmacy #[id number], Partial fill upon patient request if the prescription is for a schedule II opioid drug., 158, cm, 01/13/23 9:29:00 EDT... 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 Depression with [...] Team Personnel Name: Krystina Goldsmith RN Position: [facility] RN Member Role: Primary Care Nurse Name: Lacey Ibarra NP Position: [facility] PCO Associate Professional Member Role: PCP Address: Address: [address] [place] [id number] Name: Edna Mallory Position: [facility] Outreach Member Role: Lifetime Consulting Physician Name: Silvia Whaley RN Position: [facility] Onco RN Member Role: Primary Care Nurse Name: Tarah De Leon RN Position: [facility] AMB Nurse Member Role: Primary Care Nurse Care Team Related Persons Name: JIMENEZ GARCIA Address: home [address] [place] [id number] Name: WILLY GARCIA Address: home [address] [place] [id number]
--- OUTSIDE RECORDS SUMMARY | 2023-12-12 20:30 | XMS_ITS | Continuity of Care Document ---
Author Organization [facility] Address [address] [place] [address]- Care Team Providers Care Flotation Tender Helper Name Role Phone Stacey GARCIA, Lacey Thomas Primary Care Physician En[place] [facility] [place] Date(s): 11/29/20 - 02/01/21 [facility] [address] [place] [id number] Discharge Disposition: A-D/C Home Attending Physician: Oscar ALLEN, Raheem Jones Admitting Physician: Raheem Moore MD Referring Physician: Lacey Ibarra NP Allergies, [...] condition(Confirmed) Active History of hip replacement(Confirmed) 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
--- OUTSIDE RECORDS SUMMARY | 2023-12-12 20:30 | XMS_ITS | Continuity of Care Document ---
Author Organization [facility] ter Address [address] [place] [address]- Care Team Providers Care General Practitioner Name Role Phone Stacey Lacey GARCIA Primary Care Physician [place] [facility] [place] - 11/25/[address] [id number] Attending Physician: Admtr, Ar8 Admitting Physician: Admtr, Ar8 Referring Physician: Admtr, Ar8 Allergies, Adverse Reactions, [...] 0 Refills, Maintenance, 11/09/21 8:16:00 EDT, Tablet, [facility], Partial fill upon patient [...] 0 Refills, Maintenance, 11/09/21 8:20:00 EDT, Capsule, [facility], Partial fill upon patient request if the prescription is... Start Date: 11/09/21 Status: Ordered duloxetine 20 mg oral enteric coated capsule 1 capsule = 20 mg, By Mouth, Daily at bedtime, # 30 capsule, 1 Refills, Maintenance, 10/16/21 13:16:00 EDT, EC Capsule, [facility], Partial fill upon patient request if the prescription is for a schedule II opioid drug., 160.02, cm, 0... Start Date: 10/16/21 Stop Date: 12/15/21 Status: Ordered ferrous gluconate 324 mg oral tablet 1 tablet, By Mouth, 2 times a day, IF MENSTRUATING, INCREASE TO 3 TIMES DAILY. 30 DAY SUPPLY., # 70tablet, 1 Refills, [id number], 160.02, cm, 10/16/21 10:38:00 EDT, Height, 84.1, [...] Team Personnel Name: Lacey Ibarra NP Address: [address] [place] [id number]
--- OUTSIDE RECORDS SUMMARY | 2023-12-12 20:30 | XMS_ITS | Continuity of Care Document ---
Author Organization [facility] Address [address] [place] [id number]- Care Team Providers Care Calender Roll Press Operator Name Role Phone Stacey Lacey GARCIA Primary Care Physician En[place] [facility] [place] Date(s): 11/29/20 - 12/29/20 [facility] [address] [place] [id number] Attending Physician: Dennis López Admitting Physician: AdmtrDennis Referring Physician: Admtr, Ar8 Allergies, Adverse Reactions, [...] condition(Confirmed) Active History of hip replacement(Confirmed) Active 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
--- OUTSIDE RECORDS SUMMARY | 2023-12-12 20:30 | XMS_ITS | Continuity of Care Document ---
Author Organization [facility] Reed Kali Address [address] [place] [address]- Care Team Providers Care Manager Patient Name Role Phone Stacey DEHYDROGENATION CONVERTER HELPER, Lacey Thomas Primary Care Physician [place] [facility] [place](s): 08/21/23 - 09/20/23 [facility] Adult [address] [place] [address]- Allergies, Adverse Reactions, Alerts Substance Reaction Severity [...] Given tetanus/diphtheria/pertussis, acel(Tdap) 08/04/15 Given 1Result Comment: [id number] 2Result Comment: Booster Medications acetaminophen 325 mg [...] tablet, 6 Refills, Maintenance, 05/20/23 9:32:00 EST, [facility], Partial fill... Start Date: [...] 6 Refills, Maintenance, 12/16/22 16:28:00 EDT, Tablet, [facility], Partial fill upon patient request if the prescription is for a schedule II opioid drug., 1 tablet By Mouth 2 times a da... Start Date: 12/16/22 Status: Ordered duloxetine 20 mg oral enteric coated capsule 2 capsule = 40 mg, By Mouth, Daily, # 180 capsule, 0 Refills, Maintenance, 09/16/23 11:45:00 EDT, EC Capsule, [facility]/pharmacy #[id number], 158, cm, 09/15/23 8:50:00 EDT, Height, 78, kg, 12/13/21 10:52:00 EDT,Dry Weight Start Date: 09/16/23 Stop Date: 12/15/23 Status: Ordered ferrous gluconate 324 mg oral tablet 1 tablet, By Mouth, 2 times a day, IF MENSTRUATING, INCREASE TO 3 TIMES DAILY. 30 DAY SUPPLY., # 70tablet, 1 Refills, Maintenance, 12/17/21 9:20:00 EDT, [facility], 158, cm, 12/13/21 10:52:00 EDT, Height, 78, kg, 12/13/21 10:52:00 EDT, Dry Weight Start Date: 12/17/21 Status: Ordered Flonase Allergy Relief 50 mcg/inh nasal spray See Instructions, 1 sprays Daily in each nostril, # 16 Gm, 0 Refills, Maintenance, 05/08/23 10:58:00 EST, [facility]/pharmacy #[id number], Partial fill upon patient request if the prescription is for a schedule II opioid drug., 158, cm, 01/13/23 9:29:00 EDT, Heig... Start Date: 05/08/23 Status: Ordered folic acid 1 mg oral tablet 1, tablet, By Mouth, Daily, EXCEPT THE DAY YOU TAKE METHOTREXATE., # 26 tablet, Refills 6, Maintenance, 03/11/23 15:05:00 EST, Route to Pharmacy Electronically, [id number], 158, cm, 01/13/23 9:29:00 EDT, Height, 78, [...] 05/19/23 16:26:00 EST, Route to Pharmacy Electronically, [facility], Partial fill upon patient [...] tablet, 4 Refills, Maintenance, 08/04/23 9:38:00 EDT, [id number], 158, cm, 08/01/23 7:14:00 EDT, Height, 78, kg, 12/13/21 10:52:00 EDT, Dry Weight Start Date: 08/04/23 Status: Ordered methotrexate 25 mg/mL injectable solution = 25 mg, Subcutaneous Injection, Every week, # 4 mL, 6 Refills, Maintenance, 12/16/22 17:05:00 EDT,[facility], Partial fill upon patient [...] Stop 12/12/23 15:43:00 EDT, 03/17/23 15:43:00 EST, [facility], Partial fill upon patient request if the prescription is for a schedule II opioid drug., 158, c... Start Date: 03/17/23 Stop Date: 12/12/23 Status: Ordered Simponi SmartJect 50 mg/0.5 mL subcutaneous solution See Instructions, INJECT 50MG SUBCUTANEOUSLY EVERY 28 DAYS, # 0.5 mL, 3 Refills, Maintenance, 08/06/23 11:46:00 EDT, [facility], 158, cm, 08/01/23 7:14:00 [...] tablet, 0 Refills, Maintenance, 02/11/23 14:46:00EST, Tablet, [facility]/pharmacy #[id number], Partial fill upon patient request if the prescription is for a schedule II opioid drug., 158, cm, 01/13/23 9:29:00 EDT... 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 Active senior living systemic steroid user Confirmed Active Depression with [...] Team Personnel Name: Krystina Goldsmith RN Position: [facility] RN Member Role: Primary Care Nurse Name: Lacey Ibarra NP Position: [facility] PCO Associate Professional Member Role: PCP Address: Address: [address] [place] [id number] Name: Edna Mallory Position: [facility] Outreach Member Role: Lifetime Consulting Physician Name: Silvia Whaley RN Position: [facility] Onco RN Member Role: Primary Care Nurse Name: Tarah De Leon RN Position: [facility] AMB Nurse Member Role: Primary Care Nurse Care Team Related Persons Name: JIMENEZ GARCIA Address: [address] [address] Name: WILLY GARCIA Address: [address] [address]
--- OUTSIDE RECORDS SUMMARY | 2023-12-12 20:30 | XMS_ITS | Continuity of Care Document ---
Author Organization [facility] Kali lt Address [address] [place] [address]- Care Team Providers Care Box Sorter Name Role Phone Stacey Lacey GARCIA Primary Care Physician [place] [facility] [place] 05[place]21 [facility] Adult [address] [place] [address]- Allergies, Adverse Reactions, Alerts Substance Reaction Severity [...] Mouth, Daily, # 91 tablet, 0 Refills, [facility], 91, TAKE 1 TABLET BY MOUTH EVERY DAY, 161.5, cm, 03/19/21 11:22:00 EST, Height Start Date: 03/26/21 Status: Ordered ferrous gluconate 324 mg oral tablet 1 tablet, By Mouth, 2 times a day, for 30 days, TAKE TID WHEN MENSTRUATING, # 70 tablet, 6 Refills,Acute 07/26/21 22:23:00 EDT, 12/28/20 22:23:00 EDT, [facility]/pharmacy #[id number], 161.5, cm, 12/21/20 14:28:00 EDT, Height Start Date: 12/28/20 Stop Date: 07/26/21 Status: Ordered Tylenol Caplet = 650 mg, By Mouth, Every 4 hours, 0 Refills, Maintenance, 09/14/15 16:12:22 Start Date: 09/14/15 Status: Ordered Problem List Condition Effective Dates Status Health Status Inform ant 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
--- OUTSIDE RECORDS SUMMARY | 2023-12-12 20:30 | XMS_ITS | Continuity of Care Document ---
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
--- OUTSIDE RECORDS SUMMARY | 2023-12-12 20:30 | XMS_ITS | Continuity of Care Document ---
Author Organization [facility] Address [address] [place] [address]- Care Team Providers Care Package Delivery Driver Name Role Phone Stacey Lacey GARCIA Primary Care Physician Encounter [facility] Date(s): 05/18/21 - 06/17/21 [facility] [address] [place] [address]- Allergies, Adverse Reactions, Alerts Substance Reaction Severity [...] 0 Refills, [facility], 91, TAKE 1 TABLET BY MOUTH EVERY DAY, 161.5, cm, 03/19/21 11:22:00 EST, Height Start Date: 03/26/21 Status: Ordered ferrous gluconate 324 mg oral tablet 1 tablet, By Mouth, 2 times a day, for 30 days, TAKE TID WHEN MENSTRUATING, # 70 tablet, 6 Refills,Acute 07/26/21 22:23:00 EDT, 12/28/20 22:23:00 EDT, [facility]/pharmacy #[id number], 161.5, cm, 12/21/20 14:28:00 EDT, Height Start Date: 12/28/20 Stop Date: 07/26/21 Status: Ordered Tylenol Caplet = 650 mg, By Mouth, Every 4 hours, 0 Refills, Maintenance, 09/14/15 16:12:22 Start Date: 09/14/15 Status: Ordered Problem List Condition Effective Dates Status Health Status Inform ant 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
--- OUTSIDE RECORDS SUMMARY | 2023-12-12 20:30 | XMS_ITS | Continuity of Care Document ---
Author Organization [facility] Reed Kali Address [address] [place] [address]- Care Team Providers Care Flower Cheniller Name Role Phone Lacey Ibarra NP Primary Care Physician [phone] Encounter [facility] [place] Date(s): 07/26/21 - 08/02/21 [facility] Adult [address] [place] [address]- Encounter Diagnosis Depression with anxiety(Discharge Diagnosis) - 07/26/21 Abnormal bleeding in menstrual cycle(Discharge Diagnosis) - 07/26/21 Microcytic anemia(Discharge Diagnosis) - 07/26/21 Rheumatoid arthritis, erosive, seronegative(Discharge Diagnosis) - 07/26/21 Attending Physician: Not on Staff, Attending MD Referring Physician: Lacey Ibarra NP Allergies, [...] Mouth, Daily, # 91 tablet, 0 Refills, [facility], 91, TAKE 1 TABLET BY MOUTH EVERY [...] cycle(Confirmed) Active History of hip replacement(Confirmed) Active jail systemic 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 user(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) Active Microcytic anemia(Confirmed) Active Depression with anxiety(Confirmed) Active Obese class II(Confirmed) Active Left knee pain(Confirmed) Active avascular necrosis knees(Confirmed) Active Polyarthritis(Confirmed) Active Psoriasis(Confirmed) Active Rheumatoid arthritis, erosiv e, seronegative(Confirmed) Active Lupus(Confirmed) Active Urge incontinence(Confirmed) Active Vitamin D deficiency(Confirmed) Active Diagnosis Diagnosis Type Effective Dates Health Status Clinical Service Informant Depression with anxiety Discharge Diagnosis 07/26/21 Abnormal bleeding in menstrual cycle Discharge Diagnosis 07/26/21 Rheumatoid arthritis, erosive, seronegative Discharge Diagnosis 07/26/21 Microcytic anemia Discharge Diagnosis 07/26/21 Vital Signs Most recent to oldest [Reference Range]: 1 Height 158 cm (07/26/21 6:54 AM) Oxygen Saturation [94-100 %] 98 % (07/26/21 6:54 AM) Pulse Rate [55-90 bpm] 83 bpm (07/26/21 6:54 AM) Blood Pressure [90-138/55-84 mm Hg] 132/ 70mm Hg (07/26/21 6:54 AM) Respiratory Rate [16-30 br/min] 16 br/mi n (07/26/21 6:54 AM) Temperature [96.8-100.4 DegF] 98.0 DegF (07/26/21 6:54 AM) Mode of Delivery (Oxygen) Room air (07/26/21 6:54 AM) Blood pressure sites Arm, left (07/26/21 6:54 AM) Temperature Route Oral (07/26/21 6:54 AM) Social History Social History Type Response Smoking Status Never smoker entered on: 09/07/15 Sex
--- OUTSIDE RECORDS SUMMARY | 2023-12-12 20:30 | XMS_ITS | Continuity of Care Document ---
Author Organization [facility] ter Address [address] [place] [address]- Care Team Providers Care Bundle Shaker Name Role Phone Stacey Lacey GARCIA Primary Care Physician [place] [facility] [place] - 11/09/[address] [address]- Discharge Disposition: A-D/C Home Attending Physician: Mayco Ocampo MD Admitting Physician: Mayco Ocampo MD Referring Physician: Mayco Ocampo MD Allergies, Adverse Reactions, [...] 0 Refills, Maintenance, 11/09/21 8:16:00 EDT, Tablet, [facility], Partial fill upon patient [...] 0 Refills, Maintenance, 11/09/21 8:20:00 EDT, Capsule, [facility], Partial fill upon patient request if the prescription is... Start Date: 11/09/21 Status: Ordered duloxetine 20 mg oral enteric coated capsule 1 capsule = 20 mg, By Mouth, Daily at bedtime, # 30 capsule, 1 Refills, Maintenance, 10/16/21 13:16:00 EDT, EC Capsule, [facility], Partial fill upon patient request if the prescription is for a schedule II opioid drug., 160.02, cm, 0... Start Date: 10/16/21 Stop Date: 12/15/21 Status: Ordered ferrous gluconate 324 mg oral tablet 1 tablet, By Mouth, 2 times a day, IF MENSTRUATING, INCREASE TO 3 TIMES DAILY. 30 DAY SUPPLY., # 70tablet, 1 Refills, [facility], 160.02, cm, 10/16/21 10:38:00 EDT, Height, 84.1, [...] Date: 11/09/21 Stop Date: 11/16/21 Status: Ordered OxyCODONE IR Tablet 10 mg, Tablet, By Mouth, Every 4 hours, PRN for Pain , Severe, Routine, 11/08/21 13:16:00 EDT Start Date: 11/08/21 Stop Date: 11/10/21 Status: Discontinued pantoprazole 40 mg oral delayed release tablet [...] Date: 11/09/21 Stop Date: 11/16/21 Status: Ordered Tramadol Tablet 50 mg, Tablet, By Mouth, Every 6 hours, 1-2 tabs PO Q6H PRN pain, PRN for Pain , Mild, Routine, 11/08/21 13:16:00 EDT Start Date: 11/08/21 Stop Date: 11/10/21 Status: Discontinued Problem List Condition Effective Dates Status Health Status Inform ant History of hip replacement(Confirmed) Active Iron deficiency anemia(Confirmed) Active 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 Depression with anxiety(Confirmed) Active Obese class I(Confirmed) Active avascular necrosis knees(Confirmed) Active Polyarthritis(Confirmed) Active Prolonged QT interval(Confirmed) Active Psoriasis(Confirmed) Active Rheumatoid arthritis, erosiv e, seronegative(Confirmed) Active Lupus(Confirmed) Active Thrombocytosis(Confirmed) Active Urge incontinence(Confirmed) Active Uterine fibroid(Confirmed) Active Vitamin D deficiency(Confirmed) Active Results Radiology Reports * Exam Date Time Procedure Performing Provider Status 11/08/21 10:29 PM Knee 1 or 2 Views Left Lito Velasquez; Vickey (Verified) Notes: (Knee 1 or 2 Views Left) Reason For Exam: Postop;Postop RESULT: Knee 1 or 2 Views Left Knee 1 or 2 Views Left 2 views INDICATION/CLINICAL QUESTION: Reason: Postop; Clinical Question(s): Other:; Implant Position; Special Instructions: Do today at 2200, No flexed knee in the lateral position. Keep leg straight; 2 Views COMPARISON: None. FINDINGS: Total knee arthroplasty with intact hardware and normal alignment. No fracture. Surgical drain in place. IMPRESSION: No apparent complication. WSN: [id number] Ordering Physician: Beena Lomas Dictated By: Luisito Obregon MD Dictated Date/Time: 11/08/21 10:35 p Reviewed By: Luisito Obregon MD Signed By: Luisito Obregon MD Signed Date/Time: 11/08/21 10:35 pm Transcribed By: TED Transcribed Date/Time: 11/08/21 10:35 pm Vital Signs Most recent to oldest [Reference Range]: 1 2 3 Height 158 cm (11/09/21 6:57 AM) 158 cm (11/09/21 4:00 AM) 158 cm (11/08/21 11:29 PM) Weight 83.5 kg (11/08/21 11:28 AM) 83.5 kg (11/08/21 10:14 AM) Oxygen Saturation [94-100 %] 100 % (11/09/21 6:57 AM) 99 % (11/09/21 4:00 AM) 97 % (11/08/21 11:29 PM) Pulse Rate [55-90 bpm] 64 bpm (11/09/21 6:57 AM) 82 bpm (11/09/21 4:00 AM) 77 bpm (11/08/21 11:29 PM) Body Mass Index [18.5-24.99] 33.45 *>HHI* (11/08/21 11:28 AM) 33.45 *>HHI* (11/08/21 10:14 AM) Blood Pressure [90-138/55-84 mm Hg] 125/68mm Hg (11/09/21 6:57 AM) 132/69mm Hg (11/09/21 4:00 AM) 138/72mm Hg (11/08/21 11:29 PM) Respiratory Rate [16-30 br/min] 19 br/min (11/09/21 12:08 PM) 18 br/min (11/09/21 8:05 AM) 18 br/min (11/09/21 7:00 AM) Temperature [96.8-100.4 DegF] 98.3 DegF (11/09/21 6:57 AM) 98.8 DegF (11/09/21 4:00 AM) 98.7 DegF (11/08/21 11:29 PM) Mode of Delivery (Oxygen) Room air (11/09/21 6:57 AM) Room air (11/09/21 4:00 AM) Room air (11/08/21 11:29 PM) Blood pressure sites Arm, right (11/09/21 6:57 AM) Arm, right (11/09/21 4:00 AM) Arm, right (11/08/21 11:29 PM) Temperature Route Oral (11/09/21 6:57 AM) Oral (11/09/21 4:00 AM) Oral (11/08/21 11:29 PM) Dry Weight 83.5 kg (11/08/21 10:14 AM) Social History Social History Type Response Smoking Status Never smoker entered on: 09/07/15 Sex
--- OUTSIDE RECORDS SUMMARY | 2023-12-12 20:30 | XMS_ITS | Continuity of Care Document ---
Author Organization [facility] Address [address] [place] [address]- Care Team Providers Care Press Reader Name Role Phone Stacey GARDENING SUPERVISORLacey Primary Care Physician [phone] Encounter [facility] Date(s): 10/18/22 - 11/17/22 [facility] [address] [place] [phone]- Allergies, Adverse Reactions, Alerts Substance Reaction Severity [...] 0 Refills, Maintenance, 11/09/21 8:20:00 EDT, Capsule, [facility], Partial fill upon patient request if the prescription is... Start Date: 11/09/21 Status: Ordered ferrous gluconate 324 mg oral tablet 1 tablet, By Mouth, 2 times a day, IF MENSTRUATING, INCREASE TO 3 TIMES DAILY. 30 DAY SUPPLY., # 70tablet, 1 Refills, Maintenance, 12/17/21 9:20:00 EDT, [facility], 158, cm, 12/13/21 10:52:00 EDT, Height, 78, kg, 12/13/21 10:52:00 EDT, Dry Weight Start Date: 12/17/21 Status: Ordered folic acid 1 mg oral tablet 1, tablet, By Mouth, Daily, EXCEPT THE DAY YOU TAKE METHOTREXATE., # 26 tablet, Refills 6, Tot. Refills 6, Maintenance, 03/02/22 11:56:00 EST, Route to Pharmacy Electronically, [facility]/pharmacy #[id number], 158, cm, 03/02/22 11:30:00 EST, Height, 78, kg, ... Start Date: 03/02/22 Status: Ordered meloxicam 15 mg oral tablet 1 tablet, By Mouth, Every other day, # 15 tablet, 4 Refills, Maintenance, 11/14/22 8:23:00 EDT, [facility], 158, cm, 07/17/22 8:31:00 EDT, Height, 78, kg, 12/13/21 10:52:00 EDT, Dry Weight Start Date: 11/14/22 Status: Ordered methotrexate 2.5 mg oral tablet See Instructions, 6 tablet By Mouth Every week, # 30 tablet, 6 Refills, Maintenance, 03/02/22 11:56:00 EST, [facility]/pharmacy #[id number], Partial fill upon patient request if [...] tablet, 4 Refills, Maintenance, 10/18/22 15:43:00 EDT, [facility], Partial fill upon patient request if the prescription is for a schedule II opioid drug., 158, cm, 07/17/22 8:31:00 EDT, Height,... Start Date: 10/18/22 Stop Date: 03/17/23 Status: Ordered predniSONE 5 mg oral tablet 1 tablet = 5 mg, By Mouth, Daily, for 30 days, # 30 tablet, 4 Refills, Hard Stop 01/06/23 17:17:00 EDT, 08/09/22 17:17:00 EDT, [facility]/pharmacy #[id number], Partial fill upon patient request if the prescription is for a schedule II opioid drug., 158, cm, ... Start Date: 08/09/22 Stop Date: 01/06/23 Status: [...] Refills, Maintenance, 03/05/22 15:57:00 EST, Solution, [facility], Partial fill upon patient request if the prescription is for a schedule II opioid drug., 158, cm, 12... Start Date: 03/05/22 Status: Ordered Simponi SmartJect 50 mg/0.5 mL subcutaneous solution 0.5 mL = 50 mg, Subcutaneous Injection, Every 30 days, # 1 each, 0 Refills, Maintenance, 03/06/22 12:04:00 EST, Solution, [facility], Partial fill upon patient request if the prescription is for a schedule II opioid drug., 158, cm, 12... Start Date: 03/06/22 Status: Ordered Simponi SmartJect 50 mg/0.5 mL subcutaneous solution = 50 mg, Subcutaneous Infusion, Every 28 days, # 30 each, 3 Refills, Maintenance, 03/06/22 12:04:00EST, [facility], Partial fill upon patient request if the prescription is for a schedule II opioid drug., 158, cm, 03/02/22 11:30:00 E... Start Date: 03/06/22 Status: Ordered Problem List Condition Confirmation Course Effective Dates Status H ealth Status Informant History of hip replacement Confirmed Active Iron deficiency anemia Confirmed Active assisted systemic steroid user Confirmed Active Depression with [...] Team Personnel Name: Sherine Umaña RN Position: [facility] RN Member Role: Primary Care Nurse Name: Krystina Goldsmith RN Position: [facility] RN Member Role: Primary Care Nurse Name: Lacey Ibarra NP Position: [facility] PCO Associate Professional Member Role: PCP Address: Address: [address] [place] [id number] Name: Edna Mallory Position: [facility] Outreach Member Role: Lifetime Consulting Physician Name: Silvia Whaley RN Position: [facility] Onco RN Member Role: Primary Care Nurse Care Team Related Persons Name: JIMENEZ GARCIA Address: home [address] [place] [id number] Name: WILLY GARCIA Address: home [address] [place] [address]
--- OUTSIDE RECORDS SUMMARY | 2023-12-12 20:31 | XMS_ITS | Continuity of Care Document ---
Author Organization [facility] Address [address] [place] [address]- Care Team Providers Care Torch Brazer Name Role Phone Stacey Lacey GARCIA Primary Care Physician [phone] Encounter [facility] [place] Date(s): 06/03/19 - 06/13/19 [facility] [address] [place] [address]- [facility] Attending Physician: Admtr, Ar8 Admitting Physician: Admtr, [...]
--- OUTSIDE RECORDS SUMMARY | 2023-12-12 20:31 | XMS_ITS | Continuity of Care Document ---
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
--- OUTSIDE RECORDS SUMMARY | 2023-12-12 20:31 | XMS_ITS | Continuity of Care Document ---
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
--- OUTSIDE RECORDS SUMMARY | 2023-12-12 20:31 | XMS_ITS | Continuity of Care Document ---
Author Organization [facility] Address [address] [place] [address]- Care Team Providers Care Marine Welder Name Role Phone Stacey Lacey GARCIA Primary Care Physician [phone] Encounter [facility] Date(s): 07/20/21 - 08/19/21 [facility] [address] [place] [address]- Allergies, Adverse Reactions, Alerts Substance Reaction Severity [...] Date: 07/26/21 Stop Date: 08/25/21 Status: Ordered Tramadol = 50 mg, By [...] cycle(Confirmed) Active History of hip replacement(Confirmed) Active [facility] systemic steroid user(Confirmed) Active Microcytic anemia(Confirmed) Active Depression with anxiety(Confirmed) Active Obese class II(Confirmed) Active Left knee pain(Confirmed) Active avascular necrosis knees(Confirmed) Active Polyarthritis(Confirmed) Active Psoriasis(Confirmed) Active Rheumatoid arthritis, erosiv e, seronegative(Confirmed) Active Lupus(Confirmed) Active Urge incontinence(Confirmed) Active Vitamin D deficiency(Confirmed) Active Social History Social History Type Response Smoking Status Never smoker entered on: 09/07/15 Sex
--- OUTSIDE RECORDS SUMMARY | 2023-12-12 20:31 | XMS_ITS | Continuity of Care Document ---
Author Organization [facility] Address [address] [place] [address]- Care Team Providers Care Senior Mechanical Engineer Name Role Phone Stacey Lacey GARCIA Primary Care Physician Encounter [facility] Date(s): 10/16/21 - 11/15/21 [facility] [address] [place] [address]- Allergies, Adverse Reactions, Alerts Substance Reaction Severity [...] 0 Refills, Maintenance, 11/09/21 8:16:00 EDT, Tablet, [facility], Partial fill upon patient [...] 0 Refills, Maintenance, 11/09/21 8:20:00 EDT, Capsule, [facility], Partial fill upon patient request if the prescription is... Start Date: 11/09/21 Status: Ordered duloxetine 20 mg oral enteric coated capsule 1 capsule = 20 mg, By Mouth, Daily at bedtime, # 30 capsule, 1 Refills, Maintenance, 10/16/21 13:16:00 EDT, EC Capsule, [facility], Partial fill upon patient request if the prescription is for a schedule II opioid drug., 160.02, cm, 0... Start Date: 10/16/21 Stop Date: 12/15/21 Status: Ordered ferrous gluconate 324 mg oral tablet 1 tablet, By Mouth, 2 times a day, IF MENSTRUATING, INCREASE TO 3 TIMES DAILY. 30 DAY SUPPLY., # 70tablet, 1 Refills, [facility], 160.02, cm, 10/16/21 10:38:00 EDT, Height, 84.1, [...] hip replacement(Confirmed) Active Iron deficiency anemia(Confirmed) Active snf systemic steroid user(Confirmed) Active Depression with anxiety(Confirmed) [...]
--- OUTSIDE RECORDS SUMMARY | 2023-12-12 20:31 | XMS_ITS | Continuity of Care Document ---
Author Organization [facility] [place] Address [address] [place] [address]- Care Team Providers Care Exhibition Organiser Name Role Phone Stacey Lacey GARCIA Primary Care Physician Encounter [facility] Date(s): 12/19/21 - 01/18/22 [facility] [place] [address] [place] [address]- Allergies, Adverse Reactions, Alerts Substance Reaction Severity [...] 0 Refills, Maintenance, 11/09/21 8:16:00 EDT, Tablet, [facility], Partial fill upon patient [...] 0 Refills, Maintenance, 11/09/21 8:20:00 EDT, Capsule, [facility], Partial fill upon patient request if the prescription is... Start Date: 11/09/21 Status: Ordered duloxetine 20 mg oral enteric coated capsule 1 capsule = 20 mg, By Mouth, Daily at bedtime, # 30 capsule, 1 Refills, Maintenance, 10/16/21 13:16:00 EDT, EC Capsule, [facility], Partial fill upon patient request if the prescription is for a schedule II opioid drug., 160.02, cm, 0... Start Date: 10/16/21 Stop Date: 12/15/21 Status: Ordered ferrous gluconate 324 mg oral tablet 1 tablet, By Mouth, 2 times a day, IF MENSTRUATING, INCREASE TO 3 TIMES DAILY. 30 DAY SUPPLY., # 70tablet, 1 Refills, Maintenance, 12/17/21 9:20:00 EDT, [facility], 158, cm, 12/13/21 10:52:00 EDT, Height, 78, kg, 12/13/21 10:52:00 EDT, Dry Weight Start Date: 12/17/21 Status: Ordered folic acid 1 mg oral tablet 1, tablet, By Mouth, Daily, EXCEPT THE DAY YOU TAKE METHOTREXATE., # 26 tablet, Refills 6, Maintenance, 01/12/22 8:49:00 EDT, Route to Pharmacy Electronically, [facility], 158, cm, 12/13/21 10:52:00 EDT, Height, 78, kg, 12/13/21 10:52:00 EDT, Dry... 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
--- OUTSIDE RECORDS SUMMARY | 2023-12-12 20:31 | XMS_ITS | Continuity of Care Document ---
Author Organization [facility] Address [address] [place] [address]- Care Team Providers Care Diesel Dinkey Engineer Name Role Phone Stacey MEDICAL HEALTH RESEARCHERLacey Primary Care Physician [place] [facility] [place] - 11/08/21 [facility] [address] [place] [address]- Allergies, Adverse Reactions, Alerts Substance Reaction Severity [...] Refills, Maintenance, 10/16/21 13:16:00 EDT, EC Capsule, [facility], Partial fill upon patient request if the prescription is for a schedule II opioid drug., 160.02, cm, 0... Start Date: 10/16/21 Stop Date: 12/15/21 Status: Ordered ferrous gluconate 324 mg oral tablet 1 tablet, By Mouth, 2 times a day, IF MENSTRUATING, INCREASE TO 3 TIMES DAILY. 30 DAY SUPPLY., # 70tablet, 1 Refills, [facility]326, 160.02, cm, 10/16/21 10:38:00 EDT, Height, 84.1, [...]
--- OUTSIDE RECORDS SUMMARY | 2023-12-12 20:31 | XMS_ITS | Continuity of Care Document ---
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
--- OUTSIDE RECORDS SUMMARY | 2023-12-12 20:31 | XMS_ITS | Continuity of Care Document ---
Author Organization [facility] Address [address] [place] [address]- Care Team Providers Care Commercial Loan Underwriter Name Role Phone Stacey GARCIA, Lacey Thomas Primary Care Physician Encounter [facility] Date(s): 02/16/20 - 03/19/[address] [address]- Attending Physician: Lacey Ibarra NP Admitting Physician: Lacey Ibarra NP Referring Physician: Lacey [...]
--- OUTSIDE RECORDS SUMMARY | 2023-12-12 20:31 | XMS_ITS | Continuity of Care Document ---
Author Organization [facility] [place] Address [address] [place] [address]- Care Team Providers Care Senior Data Mining Analyst Name Role Phone Stacey Lacey GARCIA Primary Care Physician [phone] Encounter [facility] Date(s): 05/28/21 - 06/27/21 [facility] [address] [address] Attending Physician: Dennis López Admitting Physician: AdmtrDennis [...] Mouth, Daily, # 91 tablet, 0 Refills, [facility] 101[facility], 91, TAKE 1 TABLET BY MOUTH EVERY DAY, 161.5, cm, 03/19/21 11:22:00 EST, Height Start Date: 03/26/21 Status: Ordered ferrous gluconate 324 mg oral tablet 1 tablet, By Mouth, 2 times a day, for 30 days, TAKE TID WHEN MENSTRUATING, # 70 tablet, 6 Refills,Acute 07/26/21 22:23:00 EDT, 12/28/20 22:23:00 EDT, [facility]/pharmacy #[id number], 161.5, cm, 12/21/20 14:28:00 EDT, Height Start Date: 12/28/20 Stop Date: 07/26/21 Status: Ordered Tylenol Caplet = 650 mg, By Mouth, Every 4 hours, 0 Refills, Maintenance, 09/14/15 16:12:22 Start Date: 09/14/15 Status: Ordered Problem List Condition Effective Dates Status Health Status Inform ant 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
--- OUTSIDE RECORDS SUMMARY | 2023-12-12 20:31 | XMS_ITS | Continuity of Care Document ---
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
--- OUTSIDE RECORDS SUMMARY | 2023-12-12 20:31 | XMS_ITS | Continuity of Care Document ---
Author Organization [facility] Address [address] [place] [address]- Care Team Providers Care Customer Service Technician Name Role Phone Stacey LAMP SHADE SEWERLacey Primary Care Physician Encounter [facility] Date(s): 08/21/21 - 09/20/21 [facility] [address] [place] [address]- Allergies, Adverse Reactions, Alerts Substance Reaction Severity [...] 09/18/21 11:01:00 EDT, Route to Pharmacy Electronically, [facility], Partial fill upon [...] cycle(Confirmed) Active History of hip 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(Confirmed) 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
--- OUTSIDE RECORDS SUMMARY | 2023-12-12 20:31 | XMS_ITS | Continuity of Care Document ---
Author Organization [facility] Address [address] [place] [address]- Care Team Providers Care Supervisor Airplane Flight Attendant Name Role Phone Stacey JOSE, Lacey Thomas Primary Care Physician Encounter [facility] [place] Date(s): 09/03/21 - 10/03/[address] 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
--- OUTSIDE RECORDS SUMMARY | 2023-12-12 20:31 | XMS_ITS | Continuity of Care Document ---
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
--- OUTSIDE RECORDS SUMMARY | 2023-12-12 20:31 | XMS_ITS | Continuity of Care Document ---
Author Organization [facility] Address [address] [place] [address]- Care Team Providers Care Revenue Enforcement Agent Name Role Phone Stacey Lacey GARCIA Primary Care Physician [phone] [place] [facility] [place] Date(s): 01/13/23 - 02/12/23 [facility] Adult [address] [place] [address]- Attending Physician: Admtr, Ar8 Admitting Physician: Admtr, [...] Given tetanus/diphtheria/pertussis, acel(Tdap) 08/04/15 Given 1Result Comment: [id number] 2Result Comment: Booster Medications acetaminophen 325 mg [...] Refills, Maintenance, 12/16/22 16:28:00 EDT, Tablet, [facility], Partial fill upon patient request if the prescription is for a schedule II opioid drug., 1 tablet By Mouth 2 times a da... Start Date: 12/16/22 Status: Ordered duloxetine 20 mg oral enteric coated capsule 1 capsule = 20 mg, By Mouth, Daily, # 90 capsule, 1 Refills, Maintenance, 01/13/23 10:04:00 EDT, ECCapsule, [facility], 158, cm, 01/13/23 9:29:00 EDT, Height, 78, kg, 12/13/21 10:52:00 EDT, Dry Weight Start Date: 01/13/23 Stop Date: 07/12/23 Status: Ordered ferrous gluconate 324 mg oral tablet 1 tablet, By Mouth, 2 times a day, IF MENSTRUATING, INCREASE TO 3 TIMES DAILY. 30 DAY SUPPLY., # 70tablet, 1 Refills, Maintenance, 12/17/21 9:20:00 EDT, [id number], 158, cm, 12/13/21 10:52:00 EDT, Height, 78, [...] tablet, 4 Refills, Maintenance, 11/14/22 8:23:00 EDT, [id number], 158, cm, 07/17/22 8:31:00 EDT, Height, 78, kg, 12/13/21 10:52:00 EDT, Dry Weight Start Date: 11/14/22 Status: Ordered methotrexate 25 mg/mL injectable solution = 25 mg, Subcutaneous Injection, Every week, # 4 mL, 6 Refills, Maintenance, 12/16/22 17:05:00 EDT,[facility], Partial fill upon patient request [...] tablet, 0 Refills, Maintenance, 01/13/23 7:47:00 EDT, [facility], Partial fill upon patient request if the prescription is for a schedule II opioid drug., 158, cm, 11/21/22 9:48:00 EDT, Height,... Start Date: 01/13/23 Status: Ordered predniSONE 5 mg oral tablet 1 tablet = 5 mg, By Mouth, Daily, # 30 tablet, 4 Refills, Maintenance, 10/18/22 15:43:00 EDT, [facility], Partial fill upon patient request if the prescription is for a schedule II opioid drug., 158, cm, 07/17/22 8:31:00 EDT, Height,... Start Date: 10/18/22 Stop Date: 03/17/23 Status: Ordered Simponi 50 mg/0.5 mL subcutaneous solution 0.5 mL = 50 mg, Subcutaneous Injection, Every 30 days, # 1 each, 3 Refills, Maintenance, 03/05/22 15:57:00 EST, Solution, [facility], Partial fill upon patient request if the prescription is for a schedule II opioid drug., 158, eber, 12... Start Date: 03/05/22 Status: Ordered Simponi SmartJect 50 mg/0.5 mL subcutaneous solution 0.5 mL = 50 mg, Subcutaneous Injection, Every 30 days, # 1 each, 0 Refills, Maintenance, 03/06/22 12:04:00 EST, Solution, [facility], Partial fill upon patient request if the prescription is for a schedule II opioid drug., 158, eber, 12... Start Date: 03/06/22 Status: Ordered Simponi SmartJect 50 mg/0.5 mL subcutaneous solution = 50 mg, Subcutaneous Infusion, Every 28 days, # 30 each, 3 Refills, Maintenance, 03/06/22 12:04:00EST, [facility], Partial fill upon patient request if the prescription is for a schedule II opioid drug., 158eber, 03/02/22 11:30:00 E... Start Date: 03/06/22 Status: Ordered Vitamin D3 5000 intl units oral tablet See Instructions, 1 tablet By Mouth weekly, # 100 tablet, 0 Refills, Maintenance, 02/11/23 14:46:00EST, Tablet, [facility]/pharmacy #[id number], Partial fill upon patient request if the prescription is for a schedule II opioid drug., eber Mckay, 01/13/23 9:29:00 EDT... Start Date: 02/11/23 Status: Ordered Problem List Condition Confirmation Course Effective Dates Status H ealth Status Informant History of hip replacement Confirmed Active Iron deficiency anemia Confirmed Active alf systemic steroid user Confirmed Active Depression with [...] with OBGYN as well. Sched pt for 6--16 with MB Do you know what to do in case of an emergency? Yes Patient Care team information Care Team Personnel Name: Sherine Umaña RN Position: S RN Member Role: Primary Care Nurse Name: Krystina Goldsmith RN Position: S RN Member Role: Primary Care Nurse Name: Lacey Ibarra NP Position: [facility] PCO Associate Professional Member Role: PCP Address: Address: [address] [place] [id number] Name: Edna Mallory Position: [facility] Outreach Member Role: Lifetime Consulting Physician Name: Silvia Whaley RN Position: [facility] Onco RN Member Role: Primary Care Nurse Name: Tarah De Leon RN Position: [facility] SN RN Member Role: Primary Care Nurse Care Team Related Persons Name: JOSEJIMENEZ Address: home [address] [place] [id number] Name: WILLY GARCIA Address: home [address] [place] [address]
--- OUTSIDE RECORDS SUMMARY | 2023-12-12 20:31 | XMS_ITS | Continuity of Care Document ---
Author Organization [facility] Address [address] [place] [address]- Care Team Providers Care Channel Supervisor Name Role Phone Stacey FUEL MANAGER, Lacey Thomas Primary Care Physician [phone] [place] [facility] [place](s): 07/01/23 - 07/31/23 [facility] Adult [address] [place] [address]- Allergies, Adverse Reactions, Alerts Substance Reaction Severity [...] Given tetanus/diphtheria/pertussis, acel(Tdap) 08/04/15 Given 1Result Comment: [id number] 2Result Comment: Booster Medications acetaminophen 325 mg [...] tablet, 6 Refills, Maintenance, 05/20/23 9:32:00 EST, [facility], Partial fill... Start Date: 05/20/23 [...] 6 Refills, Maintenance, 12/16/22 16:28:00 EDT, Tablet, [facility], Partial fill upon patient request if the prescription is for a schedule II opioid drug., 1 tablet By Mouth 2 times a da... Start Date: 12/16/22 Status: Ordered duloxetine 20 mg oral enteric coated capsule 1 capsule, By Mouth, Daily, # 30 capsule, 5 Refills, Maintenance, 06/24/23 15:42:00 EDT, [facility], 158, cm, 05/19/23 16:05:00 EST, Height, 78, kg, 12/13/21 10:52:00 EDT, Dry Weight Start Date: 06/24/23 Status: Ordered ferrous gluconate 324 mg oral tablet 1 tablet, By Mouth, 2 times a day, IF MENSTRUATING, INCREASE TO 3 TIMES DAILY. 30 DAY SUPPLY., # 70tablet, 1 Refills, Maintenance, 12/17/21 9:20:00 EDT, [facility] [id number], 158, cm, 12/13/21 10:52:00 EDT, Height, 78, kg, 12/13/21 10:52:00 EDT, Dry Weight Start Date: 12/17/21 Status: Ordered Flonase Allergy Relief 50 mcg/inh nasal spray See Instructions, 1 sprays Daily in each nostril, # 16 Gm, 0 Refills, Maintenance, 05/08/23 10:58:00 EST, [facility]/pharmacy #[id number], Partial fill upon patient request if the prescription is for a schedule II opioid drug., 158, cm, 01/13/23 9:29:00 EDT, [facility]... Start Date: 05/08/23 Status: Ordered folic acid 1 mg oral tablet 1, tablet, By Mouth, Daily, EXCEPT THE DAY YOU TAKE METHOTREXATE., # 26 tablet, Refills 6, Maintenance, 03/11/23 15:05:00 EST, Route to Pharmacy Electronically, [id number], 158, cm, 01/13/23 9:29:00 EDT, Height, 78, [...] 05/19/23 16:26:00 EST, Route to Pharmacy Electronically, [facility], Partial fill upon patient request if the prescription is for a lucho... Start Date: 05/19/23 Status: Ordered meloxicam 15 mg oral tablet 1 tablet, By Mouth, Every other day, # 15 tablet, 4 Refills, Maintenance, 03/26/23 13:25:00 EST, [id number], 158, cm, 01/13/23 9:29:00 EDT, Height, 78, kg, 12/13/21 10:52:00 EDT, Dry Weight Start Date: 03/26/23 Status: Ordered methotrexate 25 mg/mL injectable solution = 25 mg, Subcutaneous Injection, Every week, # 4 mL, 6 Refills, Maintenance, 12/16/22 17:05:00 EDT,[facility], Partial fill upon patient [...] Stop 12/12/23 15:43:00 EDT, 03/17/23 15:43:00 EST, [facility], Partial fill upon patient request if the prescription is for a schedule II opioid drug., 158, c... Start Date: 03/17/23 Stop Date: 12/12/23 Status: Ordered Simponi SmartJect 50 mg/0.5 mL subcutaneous solution See Instructions, INJECT 50MG SUBCUTANEOUSLY EVERY 28 DAYS, # 0.5 mL, 3 Refills, Maintenance, 03/11/23 15:07:00 EST, [facility], 158, cm, 01/13/23 9:29:00 EDT, Height, 78, kg, 12/13/21 10:52:00 EDT, Dry Weight Start Date: 03/11/23 Status: Ordered Vitamin D3 5000 intl units oral tablet See Instructions, 1 tablet By Mouth weekly, # 100 tablet, 0 Refills, Maintenance, 02/11/23 14:46:00EST, Tablet, [facility]/pharmacy #[id number], Partial fill upon patient request if the prescription is for a schedule II opioid drug., 158, cm, 01/13/23 9:29:00 EDT... Start Date: 02/11/23 Status: Ordered Problem List Condition Confirmation Course Effective Dates Status H ealth Status Informant History of hip replacement Confirmed Active Iron deficiency anemia Confirmed Active snf systemic steroid user Confirmed Active Depression with [...] Team Personnel Name: Krystina Goldsmith RN Position: [facility] RN Member Role: Primary Care Nurse Name: Lacey Ibarra NP Position: [facility] PCO Associate Professional Member Role: PCP Address: Address: [address] [place] [id number] Name: Edna Mallory Position: [facility] Outreach Member Role: Lifetime Consulting Physician Name: Silvia Whaley RN Position: [facility] Onco RN Member Role: Primary Care Nurse Name: Tarah De Leon RN Position: [facility] AMB Nurse Member Role: Primary Care Nurse Care Team Related Persons Name: JIMENEZ GARCIA Address: home [address] [place] [id number] Name: WILLY GARCIA Address: home [address] [place] [address]
--- OUTSIDE RECORDS SUMMARY | 2023-12-12 20:31 | XMS_ITS | Continuity of Care Document ---
Author Organization [facility] ter Address [address] [place] [address]- Care Team Providers Care Associate Professor Of Violin Name Role Phone Stacey Lacey GARCIA Primary Care Physician [phone] Encounter [facility] [place] Date(s): 09/04/21 - 10/04/[address] [address] Attending Physician: Admtr, Ar8 Admitting Physician: Admtr, [...] 09/18/21 11:01:00 EDT, Route to Pharmacy Electronically, [facility], Partial fill upon patient [...] cycle(Confirmed) Active History of hip replacement(Confirmed) 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
--- OUTSIDE RECORDS SUMMARY | 2023-12-12 20:31 | XMS_ITS | Continuity of Care Document ---
Author Organization [facility] Address [address] [place] [address]- Care Team Providers Care Space Systems Operations Manager Name Role Phone Stacey FIRE OPERATIONS FORESTERLacey Primary Care Physician [phone] Encounter [facility] Date(s): 08/07/22 - 09/06/22 [facility] [address] [place] [address]- Allergies, Adverse Reactions, Alerts Substance Reaction Severity [...] 0 Refills, Maintenance, 11/09/21 8:20:00 EDT, Capsule, [facility], Partial fill upon patient request if the prescription is... Start Date: 11/09/21 Status: Ordered duloxetine 20 mg oral enteric coated capsule 1 capsule = 20 mg, By Mouth, Daily at bedtime, # 30 capsule, 1 Refills, Maintenance, 10/16/21 13:16:00 EDT, EC Capsule, [facility], Partial fill upon patient request if the prescription is for a schedule II opioid drug., 160.02, cm, 0... Start Date: 10/16/21 Stop Date: 12/15/21 Status: Ordered ferrous gluconate 324 mg oral tablet 1 tablet, By Mouth, 2 times a day, IF MENSTRUATING, INCREASE TO 3 TIMES DAILY. 30 DAY SUPPLY., # 70tablet, 1 Refills, Maintenance, 12/17/21 9:20:00 EDT, [id number], 158, cm, 12/13/21 10:52:00 EDT, Height, 78, kg, 12/13/21 10:52:00 EDT, Dry Weight Start Date: 12/17/21 Status: Ordered folic acid 1 mg oral tablet 1, tablet, By Mouth, Daily, EXCEPT THE DAY YOU TAKE METHOTREXATE., # 26 tablet, Refills 6, Tot. Refills 6, Maintenance, 03/02/22 11:56:00 EST, Route to Pharmacy Electronically, [facility]/pharmacy #[id number], 158, cm, 03/02/22 11:30:00 EST, Height, 78, kg, ... Start Date: 03/02/22 Status: Ordered meloxicam 15 mg oral tablet See Instructions, Take 1 tablet every other day, # 15 tablet, 4 Refills, Maintenance, 07/17/22 8:59:00 EDT, [facility]/pharmacy #[id number], Partial fill upon patient request if the prescription is for a scheduleII opioid drug., 158, cm, 07/17/22 8:31:00 EDT, Hei... Start Date: 07/17/22 Status: Ordered methotrexate 2.5 mg oral tablet See Instructions, 6 tablet By Mouth Every week, # 30 tablet, 6 Refills, Maintenance, 03/02/22 11:56:00 EST, [facility]/pharmacy #[id number], Partial fill upon patient request [...] tablet, 4 Refills, Maintenance, 08/09/22 17:17:00 EDT, [facility]/pharmacy #[id number], Partial fill upon patient request [...] 3 Refills, Maintenance, 03/05/22 15:57:00 EST, Solution, [facility], Partial fill upon patient request if the prescription is for a schedule II opioid drug., 158, cm, 12... Start Date: 03/05/22 Status: Ordered Simponi SmartJect 50 mg/0.5 mL subcutaneous solution 0.5 mL = 50 mg, Subcutaneous Injection, Every 30 days, # 1 each, 0 Refills, Maintenance, 03/06/22 12:04:00 EST, Solution, [facility], Partial fill upon patient request if the prescription is for a schedule II opioid drug., 158, cm, 12... Start Date: 03/06/22 Status: Ordered Simponi SmartJect 50 mg/0.5 mL subcutaneous solution = 50 mg, Subcutaneous Infusion, Every 28 days, # 30 each, 3 Refills, Maintenance, 03/06/22 12:04:00EST, [facility], Partial fill upon patient [...] Team Personnel Name: Sherine Umaña RN Position: [facility] RN Member Role: Primary Care Nurse Name: Krystina Goldsmith RN Position: [facility] RN Member Role: Primary Care Nurse Name: Lacey Ibarra NP Position: [facility] PCO Associate Professional Member Role: PCP Address: Address: [address] [place] [id number] Name: Edna Mallory Position: [facility] Outreach Member Role: Lifetime Consulting Physician Name: Silvia Whaley RN Position: [facility] Onco RN Member Role: Primary Care Nurse Care Team Related Persons Name: JIMENEZ GARCIA Address: home [address] [place] [address] Name: WILLY GARCIA Address: home [address] [place] [address]
--- OUTSIDE RECORDS SUMMARY | 2023-12-12 20:31 | XMS_ITS | Continuity of Care Document ---
Author Organization [facility] Address [address] [place] [address]- Care Team Providers Care Leader Writer Name Role Phone Stacey ASSEMBLYMAN OR WOMAN, Lacey Thomas Primary Care Physician [place] [facility] [place] - 01/26/[address] [address]- Attending Physician: Dennis López Admitting Physician: Dennis [...] 0 Refills, Maintenance, 11/09/21 8:16:00 EDT, Tablet, [facility], Partial fill upon patient [...] 0 Refills, Maintenance, 11/09/21 8:20:00 EDT, Capsule, [facility], Partial fill upon patient request if the prescription is... Start Date: 11/09/21 Status: Ordered duloxetine 20 mg oral enteric coated capsule 1 capsule = 20 mg, By Mouth, Daily at bedtime, # 30 capsule, 1 Refills, Maintenance, 10/16/21 13:16:00 EDT, EC Capsule, [facility], Partial fill upon patient request if the prescription is for a schedule II opioid drug., 160.02, cm, 0... Start Date: 10/16/21 Stop Date: 12/15/21 Status: Ordered ferrous gluconate 324 mg oral tablet 1 tablet, By Mouth, 2 times a day, IF MENSTRUATING, INCREASE TO 3 TIMES DAILY. 30 DAY SUPPLY., # 70tablet, 1 Refills, Maintenance, 12/17/21 9:20:00 EDT, [id number], 158, cm, 12/13/21 10:52:00 EDT, Height, 78, kg, 12/13/21 10:52:00 EDT, Dry Weight Start Date: 12/17/21 Status: Ordered folic acid 1 mg oral tablet 1, tablet, By Mouth, Daily, EXCEPT THE DAY YOU TAKE METHOTREXATE., # 26 tablet, Refills 6, Maintenance, 01/12/22 8:49:00 EDT, Route to Pharmacy Electronically, [id number], 158, cm, 12/13/21 10:52:00 EDT, Height, 78, kg, 12/13/21 10:52:00 EDT, Dry... 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
--- OUTSIDE RECORDS SUMMARY | 2023-12-12 20:31 | XMS_ITS | Continuity of Care Document ---
Author Organization [facility] Address [address] [place] [address]- Care Team Providers Care Sql Etl Developer Name Role Phone Stacey JOSE, Lacey Thomas Primary Care Physician [phone] Encounter [facility] Date(s): 06/01/19 - 07/29/19 [facility] [address] [place] [address] Attending Physician: Abe Davis MD Referring Physician: Esmer Cazares NP Allergies, Adverse Reactions, Alerts Substance Reaction [...]
--- OUTSIDE RECORDS SUMMARY | 2023-12-12 20:31 | XMS_ITS | Continuity of Care Document ---
Author Organization [facility] Kali Address [address] [place] [address]- Care Team Providers Care Consultative Sales Associate Name Role Phone Stacey JOSE, Lacey Thomas Primary Care Physician En[place] [facility] [place] Date(s): 05/31/19 - 07/03/19 [facility] Adult [address] [place] [address]- [facility] Attending Physician: Esmer Cazares NP Allergies, Adverse Reactions, [...]
--- OUTSIDE RECORDS SUMMARY | 2023-12-12 20:31 | XMS_ITS | Continuity of Care Document ---
Author Organization [facility] Kali Address [address] [place] [address]- Care Team Providers Care Budget Assistant Name Role Phone Stacey Lacey GARCIA Primary Care Physician En[place] [facility] [place] Date(s): 08/01/21 - 08/31/21 [facility] [address] [place] [address]- Attending Physician: Admtr, Ar8 Admitting Physician: Admtr, [...]
--- OUTSIDE RECORDS SUMMARY | 2023-12-12 20:31 | XMS_ITS | Continuity of Care Document ---
Author Organization [facility] Address [address] [place] [address]- Care Team Providers Care Shellfish Checker Name Role Phone Stacey Lacey GARCIA Primary Care Physician Encounter [facility] Date(s): 03/27/23 - 04/26/23 [facility] [address] [place] [address]- Allergies, Adverse Reactions, Alerts Substance Reaction Severity [...] Given tetanus/diphtheria/pertussis, acel(Tdap) 08/04/15 Given 1Result Comment: [id number] 2Result Comment: Booster Medications acetaminophen 325 mg [...] 6 Refills, Maintenance, 12/16/22 16:28:00 EDT, Tablet, [facility], Partial fill upon patient request if the prescription is for a schedule II opioid drug., 1 tablet By Mouth 2 times a da... Start Date: 12/16/22 Status: Ordered cyclobenzaprine 5 mg oral tablet 1 tablet, By Mouth, Daily at bedtime, # 30 tablet, 3 Refills, Maintenance, 04/08/23 9:47:00 EST, [facility], 158, cm, 01/13/23 9:29:00 EDT, Height, 78, kg, 12/13/21 10:52:00 EDT, DryWeight Start Date: 04/08/23 Status: Ordered duloxetine 20 mg oral enteric coated capsule 1 capsule = 20 mg, By Mouth, Daily, # 90 capsule, 1 Refills, Maintenance, 01/13/23 10:04:00 EDT, ECCapsule, [facility], 158, cm, 01/13/23 9:29:00 EDT, Height, 78, kg, 12/13/21 10:52:00 EDT, Dry Weight Start Date: 01/13/23 Stop Date: 07/12/23 Status: Ordered ferrous gluconate 324 mg oral tablet 1 tablet, By Mouth, 2 times a day, IF MENSTRUATING, INCREASE TO 3 TIMES DAILY. 30 DAY SUPPLY., # 70tablet, 1 Refills, Maintenance, 12/17/21 9:20:00 EDT, [id number], 158, cm, 12/13/21 10:52:00 EDT, Height, 78, kg, 12/13/21 10:52:00 EDT, Dry Weight Start Date: 12/17/21 Status: Ordered folic acid 1 mg oral tablet 1, tablet, By Mouth, Daily, EXCEPT THE DAY YOU TAKE METHOTREXATE., # 26 tablet, Refills 6, Maintenance, 03/11/23 15:05:00 EST, Route to Pharmacy Electronically, [id number], 158, cm, 01/13/23 9:29:00 EDT, Height, 78, kg, 12/13/21 10:52:00 EDT, Dry... Start Date: 03/11/23 Status: Ordered meloxicam 15 mg oral tablet 1 tablet, By Mouth, Every other day, # 15 tablet, 4 Refills, Maintenance, 03/26/23 13:25:00 EST, [facility]608, 158, cm, 01/13/23 9:29:00 EDT, Height, 78, kg, 12/13/21 10:52:00 EDT, Dry Weight Start Date: 03/26/23 Status: Ordered methotrexate 25 mg/mL injectable solution = 25 mg, Subcutaneous Injection, Every week, # 4 mL, 6 Refills, Maintenance, 12/16/22 17:05:00 EDT,[facility], Partial fill upon [...] Stop 12/12/23 15:43:00 EDT, 03/17/23 15:43:00 EST, [facility], Partial fill upon patient request if the prescription is for a schedule II opioid drug., 158, c... Start Date: 03/17/23 Stop Date: 12/12/23 Status: Ordered predniSONE 5 mg oral tablet 2 tablet = 10 mg, By Mouth, Daily, # 60 tablet, 0 Refills, Maintenance, 12/12/23 15:43:00 EDT, [facility]/pharmacy #[id number], Partial fill upon patient request if the prescription is for a schedule II opioid drug., 158, cm, 01/13/23 9:29:00 EDT, Height, 78, kg,... Start Date: 12/12/23 Stop Date: 01/11/24 Status: Ordered Simponi SmartJect 50 mg/0.5 mL subcutaneous solution See Instructions, INJECT 50MG SUBCUTANEOUSLY EVERY 28 DAYS, # 0.5 mL, 3 Refills, Maintenance, 03/11/23 15:07:00 EST, [facility], 158, cm, 01/13/23 9:29:00 EDT, Height, 78, kg, 12/13/21 10:52:00 EDT, Dry Weight Start Date: 03/11/23 Status: Ordered Vitamin D3 5000 intl units oral tablet See Instructions, 1 tablet By Mouth weekly, # 100 tablet, 0 Refills, Maintenance, 02/11/23 14:46:00EST, Tablet, [facility]/pharmacy #[id number], Partial fill upon patient request if the prescription is for a schedule II opioid drug., 158, cm, 01/13/23 9:29:00 EDT... 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 Depression with [...] Team Personnel Name: Krystina Goldsmith RN Position: [facility] RN Member Role: Primary Care Nurse Name: Lacey Ibarra NP Position: [facility] PCO Associate Professional Member Role: PCP Address: Address: [address] [place] [address]- Name: Edna Mallory Position: [facility] Outreach Member Role: Lifetime Consulting Physician Name: Silvia Whaley RN Position: [facility] Onco RN Member Role: Primary Care Nurse Name: Tarah De Leon RN Position: [facility] SN RN Member Role: Primary Care Nurse Care Team Related Persons Name: JIMENEZ GARCIA Address: home [address] [place] [address] Name: WILLY GARCIA Address: home [address] [place] [address]
--- OUTSIDE RECORDS SUMMARY | 2023-12-12 20:31 | XMS_ITS | Continuity of Care Document ---
Author Organization [facility] Address [address] [place] [address]- Care Team Providers Care Truer Pinion And Wheel Name Role Phone Stacey Lacey GARCIA Primary Care Physician [phone] Encounter [facility] Date(s): 03/20/21 - 04/19/21 [facility] [address] [place] [id number] Attending Physician: Admall, Dennis Admitting Physician: AdmtrDennis Referring Physician: Admtr, Ar8 [...] Refills, [facility] [id number], 91, TAKE 1 TABLET BY MOUTH EVERY DAY, 161.5, cm, 03/19/21 11:22:00 EST, Height Start Date: 03/26/21 Status: Ordered ferrous gluconate 324 mg oral tablet 1 tablet, By Mouth, 2 times a day, for 30 days, TAKE TID WHEN MENSTRUATING, # 70 tablet, 6 Refills,Acute 07/26/21 22:23:00 EDT, 12/28/20 22:23:00 EDT, [facility]/pharmacy #[id number], 161.5, cm, 12/21/20 14:28:00 EDT, Height Start Date: 12/28/20 Stop Date: 07/26/21 Status: Ordered Tylenol Caplet = 650 mg, By Mouth, Every 4 hours, 0 Refills, Maintenance, 09/14/15 16:12:22 Start Date: 09/14/15 Status: Ordered Problem List Condition Effective Dates Status Health Status Inform ant 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
--- OUTSIDE RECORDS SUMMARY | 2023-12-12 20:31 | XMS_ITS | Continuity of Care Document ---
Author Organization [facility] [place] Address [address] [place] [address]- Care Team Providers Care Tonger Name Role Phone Stacey PUBLIC SAFETY OFFICER, Lacey Thomas Primary Care Physician [phone] Encounter [facility] Date(s): 09/21/21 - 01/19/22 [facility] [place] [address] [place] [address]- Attending Physician: Radha ALLEN, Pablito Referring Physician: Nura Mcdaniel MD Allergies, Adverse Reactions, Alerts Substance Reaction [...] 0 Refills, Maintenance, 11/09/21 8:16:00 EDT, Tablet, [facility], Partial fill upon patient [...] 0 Refills, Maintenance, 11/09/21 8:20:00 EDT, Capsule, [facility], Partial fill upon patient request if the prescription is... Start Date: 11/09/21 Status: Ordered duloxetine 20 mg oral enteric coated capsule 1 capsule = 20 mg, By Mouth, Daily at bedtime, # 30 capsule, 1 Refills, Maintenance, 10/16/21 13:16:00 EDT, EC Capsule, [facility], Partial fill upon patient request if the prescription is for a schedule II opioid drug., 160.02, cm, 0... Start Date: 10/16/21 Stop Date: 12/15/21 Status: Ordered ferrous gluconate 324 mg oral tablet 1 tablet, By Mouth, 2 times a day, IF MENSTRUATING, INCREASE TO 3 TIMES DAILY. 30 DAY SUPPLY., # 70tablet, 1 Refills, Maintenance, 12/17/21 9:20:00 EDT, [facility] [id number], 158, cm, 12/13/21 10:52:00 EDT, Height, 78, kg, 12/13/21 10:52:00 EDT, Dry Weight Start Date: 12/17/21 Status: Ordered folic acid 1 mg oral tablet 1, tablet, By Mouth, Daily, EXCEPT THE DAY YOU TAKE METHOTREXATE., # 26 tablet, Refills 6, Maintenance, 01/12/22 8:49:00 EDT, Route to Pharmacy Electronically, [id number], 158, cm, 12/13/21 10:52:00 EDT, Height, 78, kg, 12/13/21 10:52:00 EDT, Dry... Start Date: 01/12/22 Status: Ordered methotrexate 2.5 mg oral tablet 4 tablet = 10 mg, By Mouth, Every week, # 32 tablet, 6 Refills, Maintenance, 03/07/21 16:05:00 EST,[facility] #[id number], Partial fill upon patient request if [...] tablet, 2 Refills, Maintenance, 11/24/21 9:42:00 EDT, [facility], 158, cm, 11/09/21 6:57:00 [...] Name: Stacey GARCIA, Lacey Thomas Address: Address: [address] [place] [id number]
--- OUTSIDE RECORDS SUMMARY | 2023-12-12 20:31 | XMS_ITS | Continuity of Care Document ---
Author Organization [facility] Address [address] [place] [address]- Care Team Providers Care Neurological Surgery Teacher Name Role Phone Stacey Lacey GARCIA Primary Care Physician [phone] Encounter [facility] Date(s): 03/07/21 - 04/06/21 [facility] [address] [place] [address]- Allergies, Adverse Reactions, Alerts Substance Reaction Severity Status sulfADIAZINE Active Immunizations Given and Recorded Vaccine Date Status Refusal Reason SARS-CoV-2 (COVID-19) mRNA BNT-162b2 vac 07/13/20 Recorded SARS-CoV-2 (COVID-19) mRNA BNT-162b2 vac 06/21/20 Recorded Measles/Mumps/Rubella Virus Vaccine 10/04/15 Given tetanus/diphtheria/pertussis, acel(Tdap) 08/04/15 Given Medications ethinyl estradiol-levonorgestrel biphasic extended cycle oral tablet 1 tablet, By Mouth, Daily, # 91 tablet, 0 Refills, [facility]85, 91, TAKE 1 TABLET BY MOUTH EVERY [...] condition(Confirmed) Active History of hip replacement(Confirmed) Active 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
--- OUTSIDE RECORDS SUMMARY | 2023-12-12 20:31 | XMS_ITS | Continuity of Care Document ---
Author Organization [facility] Address [address] [place] [address]- Care Team Providers Care System Safety Manager Name Role Phone Stacey Lacey GARCIA Primary Care Physician [phone] Encounter [facility] Date(s): 05/22/21 - 06/21/21 [facility] [address] [place] [address]- Attending Physician: Admtr, Dennis Admitting Physician: Admtr, Ar8 Referring Physician: Admtr, [...] Mouth, Daily, # 91 tablet, 0 Refills, [facility]2666, 91, TAKE 1 TABLET BY MOUTH EVERY DAY, 161.5, cm, 03/19/21 11:22:00 EST, Height Start Date: 03/26/21 Status: Ordered ferrous gluconate 324 mg oral tablet 1 tablet, By Mouth, 2 times a day, for 30 days, TAKE TID WHEN MENSTRUATING, # 70 tablet, 6 Refills,Acute 07/26/21 22:23:00 EDT, 12/28/20 22:23:00 EDT, [facility]/pharmacy #[id number], 161.5, cm, 12/21/20 14:28:00 EDT, [...]
--- OUTSIDE RECORDS SUMMARY | 2023-12-12 20:31 | XMS_ITS | Continuity of Care Document ---
Author Organization [facility] Address [address] [place] [address]- Care Team Providers Care Multiple Launch Rocket System Crewmember Name Role Phone Stacey Lacey GARCIA Primary Care Physician [phone] Encounter [facility] Date(s): 10/10/21 - 11/09/21 [facility] [address] [place], [place] [address] Attending Physician: Admall, Dennis Admitting Physician: AdmtrDennis [...] 30 DAY SUPPLY., # 70tablet, 1 Refills, [facility] 40009, 160.02, cm, 10/16/21 10:38:00 EDT, Height, 84.1, [...] hip replacement(Confirmed) Active Iron deficiency anemia(Confirmed) Active residential systemic steroid user(Confirmed) Active Depression with anxiety(Confirmed) [...]
--- OUTSIDE RECORDS SUMMARY | 2023-12-12 20:31 | XMS_ITS | Continuity of Care Document ---
Author Organization [facility] Address [address] [place] [address]- Care Team Providers Care Grazing Aide Name Role Phone Stacey JOSE, Lacey Thomas Primary Care Physician [phone] Encounter [facility] Date(s): 12/21/20 - 03/29/21 [facility] [address] [place] [address] Attending Physician: Abe Davis MD Allergies, Adverse [...] Mouth, Daily, # 91 tablet, 0 Refills, [facility] 64395, 91, TAKE 1 TABLET BY MOUTH EVERY [...] condition(Confirmed) Active History of hip replacement(Confirmed) Active [facility] systemic steroid user(Confirmed) Active Heavy menses(Confirmed) Active Microcytic anemia(Confirmed) Active Obese class II(Confirmed) Active Obesity(Confirmed) Active Polyarthritis(Confirmed) Active Psoriasis(Confirmed) Active Rheumatoid arthritis, erosiv e, seronegative(Confirmed) Active Lupus(Confirmed) Active Urge incontinence(Confirmed) Active Vitamin D deficiency(Confirmed) Active Social History Social History Type Response Smoking Status Never smoker entered on: 09/07/15 Sex
--- OUTSIDE RECORDS SUMMARY | 2023-12-12 20:31 | XMS_ITS | Continuity of Care Document ---
Author Organization [facility] Address [address] [place] [address]- Care Team Providers Care Social Organization Professor Name Role Phone Stacey PAIN COORDINATOR, Lacey Thomas Primary Care Physician [place] [facility] Date(s): 10/22/22 - 11/21/22 [facility] [address] [place] [address]- Allergies, Adverse Reactions, Alerts Substance Reaction Severity [...] opioid drug. Start Date: 11/09/21 Status: Ordered Caltrate 600 + D oral tablet 1 tablet, By Mouth, 2 times a day, # 60 tablet, 11 Refills, Maintenance, 11/21/22 10:12:00 EDT, Tablet, [id number], Partial fill upon patient request if the prescription is for a schedule II opioid drug., 1 tablet By Mouth 2 times a day, 158,... Start Date: 11/21/22 Status: Ordered clobetasol 0.05% topical ointment 1 application, Topically, 2 times a day, for 14 days, # 60 Gm, 1 Refills, Acute 12/19/22 10:18:00 EDT, 11/21/22 10:18:00 EDT, Ointment, [facility]/pharmacy #[id number], Partial fill upon patient request if the prescription is for a schedule II opioid drug., 1 appl... Start Date: 11/21/22 Stop Date: 12/19/22 Status: Ordered cyclobenzaprine 5 mg oral tablet See Instructions, Take 1 tablet at bedtime, # 30 tablet, 2 Refills, Acute 11/22/22 10:13:00 EDT, 11/21/22 10:12:00 EDT, [facility]/pharmacy #[id number], Partial fill upon patient request if the prescription is for a schedule II opioid drug., 158, cm, 11/21/22 9:48... Start Date: 11/21/22 Stop Date: 11/22/22 Status: Ordered ferrous gluconate 324 mg oral tablet 1 tablet, By Mouth, 2 times a day, IF MENSTRUATING, INCREASE TO 3 TIMES DAILY. 30 DAY SUPPLY., # 70tablet, 1 Refills, Maintenance, 12/17/21 9:20:00 EDT, [facility], 158, cm, 12/13/21 10:52:00 EDT, Height, 78, kg, 12/13/21 10:52:00 EDT, Dry Weight Start Date: 12/17/21 Status: Ordered folic acid 1 mg oral tablet 1, tablet, By Mouth, Daily, EXCEPT THE DAY YOU TAKE METHOTREXATE., # 26 tablet, Refills 6, Tot. Refills 6, Maintenance, 03/02/22 11:56:00 EST, Route to Pharmacy Electronically, [facility]/pharmacy #[id number], 158, cm, 03/02/22 11:30:00 EST, Height, 78, kg, ... Start Date: 03/02/22 Status: Ordered meloxicam 15 mg oral tablet 1 tablet, By Mouth, Every other day, # 15 tablet, 4 Refills, Maintenance, 11/14/22 8:23:00 EDT, [facility], 158, cm, 07/17/22 8:31:00 EDT, Height, 78, kg, 12/13/21 10:52:00 EDT, Dry Weight Start Date: 11/14/22 Status: Ordered methotrexate 2.5 mg oral tablet See Instructions, 6 tablet By Mouth Every week, # 30 tablet, 6 Refills, Maintenance, 03/02/22 11:56:00 EST, [facility]/pharmacy #[id number], Partial fill upon patient [...] tablet, 4 Refills, Maintenance, 10/18/22 15:43:00 EDT, [facility], Partial fill upon patient request if the prescription is for a schedule II opioid drug., 158, cm, 07/17/22 8:31:00 EDT, Height,... Start Date: 10/18/22 Stop Date: 03/17/23 Status: Ordered Simponi 50 mg/0.5 mL subcutaneous solution 0.5 mL = 50 mg, Subcutaneous Injection, Every 30 days, # 1 each, 3 Refills, Maintenance, 03/05/22 15:57:00 EST, Solution, [facility], Partial fill upon patient request if the prescription is for a schedule II opioid drug., 158, cm, 12... Start Date: 03/05/22 Status: Ordered Simponi SmartJect 50 mg/0.5 mL subcutaneous solution 0.5 mL = 50 mg, Subcutaneous Injection, Every 30 days, # 1 each, 0 Refills, Maintenance, 03/06/22 12:04:00 EST, Solution, [facility], Partial fill upon patient request if the prescription is for a schedule II opioid drug., 158, cm, 12... Start Date: 03/06/22 Status: Ordered Simponi SmartJect 50 mg/0.5 mL subcutaneous solution = 50 mg, Subcutaneous Infusion, Every 28 days, # 30 each, 3 Refills, Maintenance, 03/06/22 12:04:00JUAN, [facility], Partial fill upon [...] Name: Sherine Umaña RN Position: [facility] RN Member Role: Primary Care Nurse Name: Krystina Goldsmith RN Position: [facility] RN Member Role: Primary Care Nurse Name: Lacey Ibarra NP Position: [facility] PCO Associate Professional Member Role: PCP Address: Address: [address] [place] [id number] Name: Edna Mallory Position: [facility] Outreach Member Role: Lifetime Consulting Physician Name: Silvia Whaley RN Position: [facility] Onco RN Member Role: Primary Care Nurse Name: Tarah De Leon RN Position: [facility] SN RN Member Role: Primary Care Nurse Care Team Related Persons Name: JIMENEZ GARCIA Address: [address] [address] Name: WILLY GARCIA Address: [address] [address]
--- OUTSIDE RECORDS SUMMARY | 2023-12-12 20:31 | XMS_ITS | Continuity of Care Document ---
Author Organization [facility] Address [address] [place] [address]- Care Team Providers Care Plant Cytologist Name Role Phone Stacey Lacey GARCIA Primary Care Physician [phone] [place] [facility] Date(s): 09/18/21 - 10/18/[address] [address] Allergies, Adverse Reactions, Alerts Substance Reaction [...] Refills, Maintenance, 10/16/21 13:16:00 EDT, EC Capsule, [facility], Partial fill upon patient request if the prescription is for a schedule II opioid drug., 160.02, cm, 0... Start Date: 10/16/21 Stop Date: 12/15/21 Status: Ordered ferrous gluconate 324 mg oral tablet 1 tablet, By Mouth, 2 times a day, IF MENSTRUATING, INCREASE TO 3 TIMES DAILY. 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
--- OUTSIDE RECORDS SUMMARY | 2023-12-12 20:31 | XMS_ITS | Continuity of Care Document ---
Author Organization [facility] ter Address [address] [place] [address]- Care Team Providers Care Quality Assurance Monitor Body Name Role Phone Stacey Lacey GARCIA Primary Care Physician [phone] [place] [facility] [place] - 10/04/[address] [address]- Attending Physician: Mayco Ocampo MD Admitting Physician: [...] 09/18/21 11:01:00 EDT, Route to Pharmacy Electronically, [facility], Partial [...] cycle(Confirmed) Active History of hip replacement(Confirmed) Active detention systemic steroid user(Confirmed) Active Depression with anxiety(Confirmed) Active Obese class I(Confirmed) Active avascular necrosis knees(Confirmed) Active Polyarthritis(Confirmed) Active Prolonged QT interval(Confirmed) Active Psoriasis(Confirmed) Active Rheumatoid arthritis, erosiv e, seronegative(Confirmed) Active Lupus(Confirmed) Active Thrombocytosis(Confirmed) Active Urge incontinence(Confirmed) Active Vitamin D deficiency(Confirmed) Active Social History Social History Type Response Smoking Status Never smoker entered on: 09/07/15 Sex
--- OUTSIDE RECORDS SUMMARY | 2023-12-12 20:31 | XMS_ITS | Continuity of Care Document ---
Author Organization [facility] Address [address] [place] [address]- Care Team Providers Care Lubrication Supervisor Name Role Phone Stacey Lacey GARCIA Primary Care Physician [place] [facility] [place]/23/[place] - 08/22/[address] [address] Allergies, Adverse Reactions, Alerts Substance Reaction [...] cycle(Confirmed) Active History of hip replacement(Confirmed) Active [facility] systemic steroid user(Confirmed) Active Microcytic anemia(Confirmed) Active Depression with anxiety(Confirmed) Active Obese class II(Confirmed) Active Left knee pain(Confirmed) Active avascular necrosis knees(Confirmed) Active Polyarthritis(Confirmed) Active Psoriasis(Confirmed) Active Rheumatoid arthritis, erosiv e, seronegative(Confirmed) Active Lupus(Confirmed) Active Urge incontinence(Confirmed) Active Vitamin D deficiency(Confirmed) Active Social History Social History Type Response Smoking Status Never smoker entered on: 09/07/15 Sex
--- OUTSIDE RECORDS SUMMARY | 2023-12-12 20:31 | XMS_ITS | Continuity of Care Document ---
Author Organization [facility] Address [address] [place] [address]- Care Team Providers Care Manager Battery Name Role Phone Stacey Lacey GARCIA Primary Care Physician Encounter [facility] Date(s): 09/11/20 - 10/11/20 [facility] [address] [place] [address]- Allergies, Adverse Reactions, Alerts Substance Reaction Severity [...]
--- OUTSIDE RECORDS SUMMARY | 2023-12-12 20:31 | XMS_ITS | Continuity of Care Document ---
Author Organization [facility] Address [address] [place] [address]- Care Team Providers Care Instructor Warper Name Role Phone Stacey SMALL ARMS REPAIRER, Lacey Thomas Primary Care Physician [phone] Encounter [facility] Date(s): 09/19/21 - 10/19/[address] [id number] Allergies, Adverse Reactions, Alerts Substance Reaction Severity [...] Refills, Maintenance, 10/16/21 13:16:00 EDT, EC Capsule, [facility], Partial fill upon patient request if the prescription is for a schedule II opioid drug., 160.02, cm, 0... Start Date: 10/16/21 Stop Date: 12/15/21 Status: Ordered ferrous gluconate 324 mg oral tablet 1 tablet, By Mouth, 2 times a day, IF MENSTRUATING, INCREASE TO 3 TIMES DAILY. 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
--- OUTSIDE RECORDS SUMMARY | 2023-12-12 20:31 | XMS_ITS | Continuity of Care Document ---
Author Organization [facility] Address [address] [place] [address]- Care Team Providers Care Railway Yard Assistant Name Role Phone Stacey Lacey GARCIA Primary Care Physician Encounter [facility] Date(s): 12/12/22 - 01/11/23 [facility] [address] [place] [id number]- Allergies, Adverse Reactions, Alerts Substance Reaction Severity [...] 6 Refills, Maintenance, 12/16/22 16:28:00 EDT, Tablet, [facility], Partial fill upon patient request if the prescription is for a schedule II opioid drug., 1 tablet By Mouth 2 times a da... Start Date: 12/16/22 Status: Ordered cyclobenzaprine 5 mg oral tablet 1 tablet = 5 mg, By Mouth, Daily at bedtime, # 30 tablet, 3 Refills, Acute 01/18/23 14:00:00 EDT, 12/19/22 14:08:00 EDT, [facility], Partial fill upon [...] 9:20:00 EDT, [id number], 158, cm, 12/13/21 10:52:00 EDT, Height, 78, [...] 4 Refills, Maintenance, 11/14/22 8:23:00 EDT, [id number], 158, cm, 07/17/22 8:31:00 EDT, Height, 78, kg, 12/13/21 10:52:00 EDT, Dry Weight Start Date: 11/14/22 Status: Ordered methotrexate 25 mg/mL injectable solution = 25 mg, Subcutaneous Injection, Every week, # 4 mL, 6 Refills, Maintenance, 12/16/22 17:05:00 EDT,[facility], Partial fill upon [...] tablet, 0 Refills, Maintenance, 12/16/22 16:26:00 EDT, [facility], Partial fill upon patient request if the prescription is for a schedule IIopioid drug., 158, cm, 11/21/22 9:48:00 EDT, Height... Start Date: 12/16/22 Status: Ordered predniSONE 5 mg oral tablet 1 tablet = 5 mg, By Mouth, Daily, # 30 tablet, 4 Refills, Maintenance, 10/18/22 15:43:00 EDT, [facility], Partial fill upon patient request if the prescription is for a schedule II opioid drug., 158, cm, 07/17/22 8:31:00 EDT, Height,... Start Date: 10/18/22 Stop Date: 03/17/23 Status: Ordered Simponi 50 mg/0.5 mL subcutaneous solution 0.5 mL = 50 mg, Subcutaneous Injection, Every 30 days, # 1 each, 3 Refills, Maintenance, 03/05/22 15:57:00 EST, Solution, [facility], Partial fill upon patient request if the prescription is for a schedule II opioid drug., 158, cm, 12... Start Date: 03/05/22 Status: Ordered Simponi SmartJect 50 mg/0.5 mL subcutaneous solution 0.5 mL = 50 mg, Subcutaneous Injection, Every 30 days, # 1 each, 0 Refills, Maintenance, 03/06/22 12:04:00 EST, Solution, [facility], Partial fill upon patient request if the prescription is for a schedule II opioid drug., 158, cm, 12... Start Date: 03/06/22 Status: Ordered Simponi SmartJect 50 mg/0.5 mL subcutaneous solution = 50 mg, Subcutaneous Infusion, Every 28 days, # 30 each, 3 Refills, Maintenance, 03/06/22 12:04:00EST, [facility], Partial fill upon patient request if the prescription is for a schedule II opioid drug., 158, cm, 03/02/22 11:30:00 E... Start Date: 03/06/22 Status: Ordered Problem List Condition Confirmation Course Effective Dates Status H ealth Status Informant History of hip replacement Confirmed Active Iron deficiency anemia Confirmed Active [facility] systemic steroid user Confirmed Active Depression with [...] Team Personnel Name: Sherine Umaña RN Position: [facility] RN Member Role: Primary Care Nurse Name: Krystina Goldsmith RN Position: [facility] RN Member Role: Primary Care Nurse Name: Lacey Ibarra NP Position: [facility] PCO Associate Professional Member Role: PCP Address: Address: [address] [place] [id number] Name: Edna Mallory Position: [facility] Outreach Member Role: Lifetime Consulting Physician Name: Silvia Whaley RN Position: [facility] Onco RN Member Role: Primary Care Nurse Name: Tarah De Leon RN Position: [facility] SN RN Member Role: Primary Care Nurse Care Team Related Persons Name: JIMENEZ GARCIA Address: home [address] [place] [id number] Name: WILLY GARCIA Address: home [address] [place] [id number]
--- OUTSIDE RECORDS SUMMARY | 2023-12-12 20:31 | XMS_ITS | Continuity of Care Document ---
Author Organization [facility] Address [address] [place] [address]- Care Team Providers Care Briquette Maker Name Role Phone Stacey GARCIA, Lacey Thomas Primary Care Physician [facility] Date(s): 02/07/22 - 03/10/22 [facility] [address] [place] [address]- Attending Physician: Lacey Ibarra NP Referring Physician: Stephie ALLEN, Ben Rosenthal Allergies, Adverse [...] 0 Refills, Maintenance, 11/09/21 8:16:00 EDT, Tablet, [facility], Partial fill upon patient [...] 0 Refills, Maintenance, 11/09/21 8:20:00 EDT, Capsule, [facility], Partial fill upon patient request if the prescription is... Start Date: 11/09/21 Status: Ordered duloxetine 20 mg oral enteric coated capsule 1 capsule = 20 mg, By Mouth, Daily at bedtime, # 30 capsule, 1 Refills, Maintenance, 10/16/21 13:16:00 EDT, EC Capsule, [facility], Partial fill upon patient request if the prescription is for a schedule II opioid drug., 160.02, cm, 0... Start Date: 10/16/21 Stop Date: 12/15/21 Status: Ordered ferrous gluconate 324 mg oral tablet 1 tablet, By Mouth, 2 times a day, IF MENSTRUATING, INCREASE TO 3 TIMES DAILY. 30 DAY SUPPLY., # 70tablet, 1 Refills, Maintenance, 12/17/21 9:20:00 EDT, [id number], 158, cm, 12/13/21 10:52:00 EDT, Height, 78, kg, 12/13/21 10:52:00 EDT, Dry Weight Start Date: 12/17/21 Status: Ordered folic acid 1 mg oral tablet 1, tablet, By Mouth, Daily, EXCEPT THE DAY YOU TAKE METHOTREXATE., # 26 tablet, Refills 6, Tot. Refills 6, Maintenance, 03/02/22 11:56:00 EST, Route to Pharmacy Electronically, [facility]/pharmacy #[id number], 158, cm, 03/02/22 11:30:00 EST, Height, 78, kg, ... Start Date: 03/02/22 Status: Ordered methotrexate 2.5 mg oral tablet See Instructions, 6 tablet By Mouth Every week, # 30 tablet, 6 Refills, Maintenance, 03/02/22 11:56:00 EST, [facility]/pharmacy #[id number], Partial fill upon patient [...] tablet, 2 Refills, Maintenance, 03/10/22 10:53:00 EST, [facility], 158, cm, 03/02/22 11:30:00 EST, [...] 3 Refills, Maintenance, 03/05/22 15:57:00 EST, Solution, [facility], Partial fill upon patient request if the prescription is for a schedule II opioid drug., 158, cm, 12... Start Date: 03/05/22 Status: Ordered Simponi SmartJect 50 mg/0.5 mL subcutaneous solution 0.5 mL = 50 mg, Subcutaneous Injection, Every 30 days, # 1 each, 0 Refills, Maintenance, 03/06/22 12:04:00 EST, Solution, [facility], Partial fill upon patient request if the prescription is for a schedule II opioid drug., 158, cm, 12... Start Date: 03/06/22 Status: Ordered Simponi SmartJect 50 mg/0.5 mL subcutaneous solution = 50 mg, Subcutaneous Infusion, Every 28 days, # 30 each, 3 Refills, Maintenance, 03/06/22 12:04:00EST, [facility], Partial fill upon patient request if the prescription is for a schedule II opioid drug., 158, cm, 03/02/22 11:30:00 E... 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 Active Depression with [...] Team Personnel Name: Sherine Umaña RN Position: [facility] RN Member Role: Primary Care Nurse Name: Krystina Goldsmith RN Position: [facility] RN Member Role: Primary Care Nurse Name: Lacey Ibarra NP Position: [facility] PCO Associate Professional Member Role: PCP Address: Address: [address] [place] [id number] Name: Edna Mallory Position: [facility] Outreach Member Role: Lifetime Consulting Physician Name: Silvia Whaley RN Position: [facility] Onco RN Member Role: Primary Care Nurse Name: Tarah De Leon RN Position: [facility] RN Member Role: Primary Care Nurse Care Team Related Persons Name: JIMENEZ GARCIA Address: [address] [address] Name: WILLY GARCIA Address: [address] [address]
--- OUTSIDE RECORDS SUMMARY | 2023-12-12 20:31 | XMS_ITS | Continuity of Care Document ---
Author Organization [facility] Address [address] [place] [address]- Care Team Providers Care Kiln Tester Name Role Phone Stacey Lacey GARCIA Primary Care Physician Encounter [facility] Date(s): 02/18/20 - 03/19/[address] [address]- Attending Physician: Dennis López Admitting Physician: Admtr, [...]
--- OUTSIDE RECORDS SUMMARY | 2023-12-12 20:32 | XMS_ITS | Continuity of Care Document ---
Author Organization [facility] Address [address] [place] [address]- Care Team Providers Care Reel And Rewinder Operator Name Role Phone Stacey Lacey GARCIA Primary Care Physician Encounter [facility] Date(s): 03/19/21 - 06/28/21 [facility] [address] [place] [id number] Attending Physician: Abe Davis MD Allergies, Adverse [...] Mouth, Daily, # 91 tablet, 0 Refills, [facility] [id number], 91, TAKE 1 TABLET BY MOUTH EVERY DAY, 161.5, cm, 03/19/21 11:22:00 EST, Height Start Date: 03/26/21 Status: Ordered ferrous gluconate 324 mg oral tablet 1 tablet, By Mouth, 2 times a day, for 30 days, TAKE TID WHEN MENSTRUATING, # 70 tablet, 6 Refills,Acute 07/26/21 22:23:00 EDT, 12/28/20 22:23:00 EDT, [facility]/pharmacy #[id number], 161.5, cm, 12/21/20 14:28:00 EDT, [...]
--- OUTSIDE RECORDS SUMMARY | 2023-12-12 20:32 | XMS_ITS | Continuity of Care Document ---
Author Organization [facility] Address [address] [place] [address]- Care Team Providers Care Card Scraper Name Role Phone Stacey Lacey GARCIA Primary Care Physician [phone] Encounter [facility] Date(s): 11/19/21 - 12/19/21 [facility] [address] [place] [address]- Allergies, Adverse Reactions, Alerts Substance Reaction Severity [...] 0 Refills, Maintenance, 11/09/21 8:16:00 EDT, Tablet, [facility], Partial fill upon [...] 0 Refills, Maintenance, 11/09/21 8:20:00 EDT, Capsule, [facility], Partial fill upon patient request if the prescription is... Start Date: 11/09/21 Status: Ordered duloxetine 20 mg oral enteric coated capsule 1 capsule = 20 mg, By Mouth, Daily at bedtime, # 30 capsule, 1 Refills, Maintenance, 10/16/21 13:16:00 EDT, EC Capsule, [facility], Partial fill upon patient request if the prescription is for a schedule II opioid drug., 160.02, cm, 0... Start Date: 10/16/21 Stop Date: 12/15/21 Status: Ordered ferrous gluconate 324 mg oral tablet 1 tablet, By Mouth, 2 times a day, IF MENSTRUATING, INCREASE TO 3 TIMES DAILY. 30 DAY SUPPLY., # 70tablet, 1 Refills, Maintenance, 12/17/21 9:20:00 EDT, [facility], 158, cm, 12/13/21 10:52:00 EDT, Height, 78, kg, 12/13/21 10:52:00 EDT, Dry Weight Start Date: 12/17/21 Status: Ordered methotrexate 2.5 mg oral tablet 4 tablet = 10 mg, By Mouth, Every week, # 32 tablet, 6 Refills, Maintenance, 03/07/21 16:05:00 EST,[facility]/pharm[facility] #[id number], Partial fill upon patient request [...] tablet, 2 Refills, Maintenance, 11/24/21 9:42:00 EDT, [facility], 158, cm, 11/09/21 [...] hip replacement(Confirmed) Active Iron deficiency anemia(Confirmed) Active 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
--- OUTSIDE RECORDS SUMMARY | 2023-12-12 20:32 | XMS_ITS | Continuity of Care Document ---
Author Organization [facility] Address [address] [place] [address]- Care Team Providers Care Diesel Truck Crane Operator Name Role Phone Stacey PROCESS IMPROVEMENT CONSULTANTLacey Primary Care Physician Encounter [facility] Date(s): 02/25/22 - 03/27/22 [facility] [address] [place] [address]- Allergies, Adverse Reactions, Alerts Substance Reaction Severity [...] 0 Refills, Maintenance, 11/09/21 8:16:00 EDT, Tablet, [facility], Partial fill upon [...] 0 Refills, Maintenance, 11/09/21 8:20:00 EDT, Capsule, [facility], Partial fill upon patient request if the prescription is... Start Date: 11/09/21 Status: Ordered duloxetine 20 mg oral enteric coated capsule 1 capsule = 20 mg, By Mouth, Daily at bedtime, # 30 capsule, 1 Refills, Maintenance, 10/16/21 13:16:00 EDT, EC Capsule, [facility], Partial fill upon [...] EDT, [facility] [address], 158, cm, 12/13/21 10:52:00 EDT, Height, 78, [...] tablet, 2 Refills, Maintenance, 03/10/22 10:53:00 EST, [facility], 158, cm, 03/02/22 11:30:00 [...] 3 Refills, Maintenance, 03/05/22 15:57:00 EST, Solution, [facility], Partial fill upon patient request if the prescription is for a schedule II opioid drug., 158, cm, 12... Start Date: 03/05/22 Status: Ordered Simponi SmartJect 50 mg/0.5 mL subcutaneous solution 0.5 mL = 50 mg, Subcutaneous Injection, Every 30 days, # 1 each, 0 Refills, Maintenance, 03/06/22 12:04:00 EST, Solution, [facility], Partial fill upon patient request if the prescription is for a schedule II opioid drug., 158, cm, 12... Start Date: 03/06/22 Status: Ordered Simponi SmartJect 50 mg/0.5 mL subcutaneous solution = 50 mg, Subcutaneous Infusion, Every 28 days, # 30 each, 3 Refills, Maintenance, 03/06/22 12:04:00EST, [facility], Partial fill upon [...] Team Personnel Name: Sherine Umaña RN Position: [facility] RN Member Role: Primary Care Nurse Name: Krystina Goldsmith RN Position: [facility] RN Member Role: Primary Care Nurse Name: Lacey Ibarra NP Position: [facility] PCO Associate Professional Member Role: PCP Address: Address: [address] [place] [address]- Name: Edna Mallory Position: [facility] Outreach Member Role: Lifetime Consulting Physician Name: Silvia Whaley RN Position: [facility] Onco RN Member Role: Primary Care Nurse Name: Tarah De Leon RN Position: [facility] RN Member Role: Primary Care Nurse Care Team Related Persons Name: JIMENEZ GARCIA Address: home [address] [place] [id number] Name: WILLY GARCIA Address: home [address] [place] [address]
--- OUTSIDE RECORDS SUMMARY | 2023-12-12 20:32 | XMS_ITS | Continuity of Care Document ---
Author Organization [facility] Reed Kali Address [address] [place] [address]- Care Team Providers Care Nursing Secretary Name Role Phone Stacey JEWEL BEARING POLISHER, Lacey Thomas Primary Care Physician [phone] Encounter [facility] Date(s): 08/01/23 - 08/08/23 [facility] Adult [address] [place] [address]- Encounter Diagnosis Rheumatoid arthritis, erosive, seronegative(Discharge Diagnosis) - 08/01/23 Vitamin D deficiency(Discharge Diagnosis) - 08/01/23 Osteonecrosis of left hip(Discharge Diagnosis) - 08/01/23 [facility] systemic steroid user(Discharge Diagnosis) - 08/01/23 Right knee pain(Discharge Diagnosis) - 08/01/23 Attending Physician: Not on Staff, Attending MD [...] Given tetanus/diphtheria/pertussis, acel(Tdap) 08/04/15 Given 1Result Comment: [id number] 2Result Comment: Booster Medications acetaminophen 325 mg [...] 6 Refills, Maintenance, 05/20/23 9:32:00 EST, [facility], Partial fill... Start Date: [...] 6 Refills, Maintenance, 12/16/22 16:28:00 EDT, Tablet, [facility], Partial fill upon patient request if the prescription is for a schedule II opioid drug., 1 tablet By Mouth 2 times a da... Start Date: 12/16/22 Status: Ordered duloxetine 20 mg oral enteric coated capsule 1 capsule, By Mouth, Daily, # 30 capsule, 5 Refills, Maintenance, 06/24/23 15:42:00 EDT, [facility], 158, cm, 05/19/23 16:05:00 EST, Height, 78, kg, 12/13/21 10:52:00 EDT, Dry Weight Start Date: 06/24/23 Status: Ordered ferrous gluconate 324 mg oral tablet 1 tablet, By Mouth, 2 times a day, IF MENSTRUATING, INCREASE TO 3 TIMES DAILY. 30 DAY SUPPLY., # 70tablet, 1 Refills, Maintenance, 12/17/21 9:20:00 EDT, [id number], 158, cm, 12/13/21 10:52:00 EDT, Height, 78, kg, 12/13/21 10:52:00 EDT, Dry Weight Start Date: 12/17/21 Status: Ordered Flonase Allergy Relief 50 mcg/inh nasal spray See Instructions, 1 sprays Daily in each nostril, # 16 Gm, 0 Refills, Maintenance, 05/08/23 10:58:00 EST, [facility]/pharmacy #[id number], Partial fill upon patient request if the prescription is for a schedule II opioid drug., 158, cm, 01/13/23 9:29:00 EDT, [facility]... Start Date: 05/08/23 Status: Ordered folic acid 1 mg oral tablet 1, tablet, By Mouth, Daily, EXCEPT THE DAY YOU TAKE METHOTREXATE., # 26 tablet, Refills 6, Maintenance, 03/11/23 15:05:00 EST, Route to Pharmacy Electronically, [id number], 158, cm, 01/13/23 9:29:00 EDT, Height, 78, [...] 05/19/23 16:26:00 EST, Route to Pharmacy Electronically, [facility], Partial fill upon patient request if the prescription is for a lucho... Start Date: 05/19/23 Status: Ordered meloxicam 15 mg oral tablet 1 tablet, By Mouth, Every other day, # 15 tablet, 4 Refills, Maintenance, 03/26/23 13:25:00 EST, [id number], 158, cm, 01/13/23 9:29:00 EDT, Height, 78, kg, 12/13/21 10:52:00 EDT, Dry Weight Start Date: 03/26/23 Status: Ordered meloxicam 15 mg oral tablet See Instructions, TAKE 1 TABLET BY MOUTH EVERY OTHER DAY, # 15 tablet, 4 Refills, Maintenance, 08/04/23 9:38:00 EDT, [id number], 158, cm, 08/01/23 7:14:00 EDT, Height, 78, kg, 12/13/21 10:52:00 EDT, Dry Weight Start Date: 08/04/23 Status: Ordered methotrexate 25 mg/mL injectable solution = 25 mg, Subcutaneous Injection, Every week, # 4 mL, 6 Refills, Maintenance, 12/16/22 17:05:00 EDT,[facility], Partial fill upon patient [...] Stop 12/12/23 15:43:00 EDT, 03/17/23 15:43:00 EST, [facility], Partial fill upon patient request if the prescription is for a schedule II opioid drug., 158, c... Start Date: 03/17/23 Stop Date: 12/12/23 Status: Ordered Simponi SmartJect 50 mg/0.5 mL subcutaneous solution See Instructions, INJECT 50MG SUBCUTANEOUSLY EVERY 28 DAYS, # 0.5 mL, 3 Refills, Maintenance, 08/06/23 11:46:00 EDT, [facility], 158, cm, 08/01/23 7:14:00 EDT, Height, 78, kg, 12/13/21 10:52:00 EDT, Dry Weight Start Date: 08/06/23 Status: Ordered Vitamin D3 5000 intl units oral tablet See Instructions, 1 tablet By Mouth weekly, # 100 tablet, 0 Refills, Maintenance, 02/11/23 14:46:00EST, Tablet, [id number], Partial fill upon patient request if the prescription is for a schedule II opioid drug., 158, cm, 01/13/23 9:29:00 EDT... 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 Depression [...] Effective Dates Health Status Clinical Service Informant [facility] systemic steroid user Discharge Diagnosis 08/01/23 Rheumatoid arthritis, erosive, seronegative Discharge Diagnosis 08/01/23 Vitamin D deficiency Discharge Diagnosis 08/01/23 Right knee pain Discharge Diagnosis 08/01/23 Osteonecrosis of left hip Discharge Diagnosis 08/01/23 Vital Signs Most recent to oldest [Reference Range]: 1 2 Height 158 cm (08/01/23 7:14 AM) 158 cm (08/01/23 7:11 AM) Weight 77.9 kg (08/01/23 7:11 AM) Oxygen Saturation [94-100 %] 98 % (08/01/23 7:11 AM) Pulse Rate [55-90 bpm] 72 bpm (08/01/23 7:11 AM) Body Mass Index [18.5-24.99 kg/m2] 31.2 kg/m2 *>HHI* (08/01/23 7:11 AM) Blood Pressure [90-138/55-84 mm Hg] 131/ 82mm Hg (08/01/23 7:14 AM) 145/84mm Hg *H* (08/01/23 7:11 AM) Temperature [96.8-100.4 DegF] 98.1 DegF (08/01/23 7:11 AM) Mode of Delivery (Oxygen) Room air (08/01/23 7:11 AM) Blood pressure sites Arm, left (08/01/23 7:14 AM) Arm, left (08/01/23 7:11 AM) Temperature Route Oral (08/01/23 7:11 AM) Weight Obtained Via Standing scale (08/01/23 7:11 AM) Social History Social History Type Response Smoking Status Never smoker entered on: 09/07/15 Sex Note * Edgar Martin: PERFORM, SIGN, VERIFY Event Display: Patient Education/Instruction Authored Date: [id number] [facility] *BMP So [place] [facility] Clinical Summary Name EDGAR GARCIA Age 48 Years 1975 PCP Stacey JEWEL BEARING POLISHERLacey PCP Visit Date 08/01/2023 06:56:00 Additional Instructions: Scheduled Appointments?? Future Appointments ?No Future Appointments Scheduled Follow-Up Instructions ?? Diagnosis Rheumatoid arthritis without rheumatoid factor, unspecified site; Osteonecrosis, unspecified; Vitamin D deficiency, unspecified; Pain in right knee; [facility] (current) use of systemic steroids; Painin left hip Medications: Please continue your medications until treatment is completed or stopped by your provider. Discuss any questions related to medications with your provider. Medications to Continue with No Changes These [...] Oral Daily as needed Constipation. Next Dose: PredniSONE (predniSONE 5 mg oral tablet) 1 tab(s) Oral Daily for 90 Days. Refills: 2. Next Dose: Allergy Info:?? sulfa drugs Medications Given This Visit Future Orders ?No future orders Future Orders ?Fecal Occult Blood Immunochemical? Order Date:08/01/23?- Complete within? Vital Signs Height 158 cm Weight 77.9 kg BMI 31.2 kg/m2 Blood Pressure 131 mm Hg/82 mm Hg Temperature 98.1 DegF Pulse Rate 72 bpm Respiratory Rate 02 Sat Mode of Delivery 98 %/Room air You can now view a summary of your hospital visit from the comfort of your home through a free online portal called [employer]. [employer] is a website that allows you to securely view your medical information including discharge summary, medications and follow-up visits. ??You can alsosend a secure electronic message to your doctor???s office to request appointments, renew medications or just ask a question. You can enroll at [email or web address] or register during your next office visit. [...] primary care provider, you may find a [facility] provider by calling [facility] [employer] [facility] at [phone]. [facility], in keeping with [facility] guidance, no longer requires face masks for [...] format to support your individualized medical care. 621 Tramadol Hydrochloride Oral tablet What is this medicine? TRAMADOL (TRA ma dole) is a pain reliever. It is used to treat moderate to severe pain in adults. This medicine may be used for other purposes; ask your health care provider or pharmacist if you have questions. What should I tell my health care provider before I take this medicine? They need to know if you have any of these conditions: ??? brain tumor ??? depression ??? drug abuse or addiction ??? head injury ??? if you frequently drink alcohol containing drinks ??? kidney disease or trouble passing urine ??? liver disease ??? lung disease, asthma, or breathing problems ??? seizures or epilepsy ??? suicidal thoughts, plans, or attempt; a previous suicide attempt by you or a family member ??? an unusual or allergic reaction to tramadol, codeine, other medicines, foods, dyes, or preservatives ??? or trying to get ??? breast-feeding How should I use this medicine? Take this medicine by mouth with a full glass of water. Follow the directions on the prescription label. If the medicine upsets your stomach, take it with food or milk. Do not take more medicine thanyou are told to take. Talk to your check scaler regarding the use of this medicine in children. Special care may be needed. Overdosage: If you think you have taken too much of this medicine contact a poison control center or emergency room at once. NOTE: This medicine is only for you. Do not share this medicine with others. What if I miss a dose? If you miss a dose, take it as soon as you can. If it is almost time for your next dose, take only that dose. Do not take double or extra doses. What may interact with this medicine? Do not take this medicine with any of the following medications: ??? MAOIs like Carbex, Eldepryl, Marplan, Nardil, and Parnate This medicine may also interact with the following medications: ??? alcohol or medicines that contain alcohol ??? antihistamines ??? benzodiazepines ??? bupropion ??? carbamazepine or oxcarbazepine ??? clozapine ??? cyclobenzaprine ??? digoxin ??? furazolidone ??? linezolid ??? medicines for depression, anxiety, or psychotic disturbances ??? medicines for migraine headache like almotriptan, eletriptan, frovatriptan, naratriptan, rizatriptan, sumatriptan, zolmitriptan ??? medicines for pain like pentazocine, buprenorphine, butorphanol, meperidine, nalbuphine, and propoxyphene ??? medicines for sleep ??? muscle relaxants ??? naltrexone ??? phenobarbital ??? phenothiazines like perphenazine, thioridazine, chlorpromazine, mesoridazine, fluphenazine, prochlorperazine, promazine, and trifluoperazine ??? procarbazine ??? warfarin This list may not describe all possible interactions. Give your health care provider a list of all the medicines, herbs, non-prescription drugs, or dietary supplements you use. Also tell them if you smoke, drink alcohol, or use illegal drugs. Some items may interact with your medicine. What should I watch for while using this medicine? Tell your doctor or health date night caregiver if your pain does not go away, if it gets worse, or ifyou have new or a different type of pain. You may develop tolerance to the medicine. Tolerance means that you will need a higher dose of the medicine for pain relief. Tolerance is normal and is expected if you take this medicine for a long time. Do not suddenly stop taking your medicine because you may develop a severe reaction. Your body becomes used to the medicine. This does NOT mean you are addicted. Addiction is a behavior related to getting and using a drug for a non- medical reason. If you have pain, you have a medical reason to takepain medicine. Your doctor will tell you how much medicine to take. If your doctor wants you to stop the medicine, the dose will be slowly lowered over time to avoid any side effects. You may get drowsy or dizzy. Do not drive, use machinery, or do anything that needs mental alertness until you know how this medicine affects you. Do not stand or sit up quickly, especially if you are an older patient. This reduces the risk of dizzy or fainting spells. Alcohol can increase or decrease the effects of this medicine. Avoid alcoholic drinks. You may have constipation. Try to have a bowel movement at least every 2 to 3 days. If you do not have a bowel movement for 3 days, call your doctor or health date night caregiver. Your mouth may get dry. Chewing sugarless gum or sucking hard candy, and drinking plenty of water may help. Contact your doctor if the problem does not go away or is severe. What side effects may I notice from receiving this medicine? Side effects that you should report to your doctor or health date night caregiver as soon as possible: ??? allergic reactions like skin rash, itching or hives, swelling of the face, lips, or tongue ??? breathing difficulties, wheezing ??? confusion ??? itching ??? light headedness or fainting spells ??? redness, blistering, peeling or loosening of the skin, including inside the mouth ??? seizures Side effects that usually do not require medical attention (report to your doctor or health date night caregiver if they continue or are bothersome): ??? constipation ??? dizziness ??? drowsiness ??? headache ??? nausea, vomiting This list may not describe all possible side effects. Call your doctor for medical advice about side effects. You may report side effects to FDA at 8-970-MDR-4796. Where should I keep my medicine? Keep out of the reach of children. Store at room temperature between 15 and 30 degrees C (59 and 86 degrees F). Keep container tightlyclosed. Throw away any unused medicine after the expiration date. NOTE:This sheet is a summary. It may not cover all possible information. If you have questions about this medicine, talk to your doctor, pharmacist, or health care provider. Copyright?? 2013 Gold Standard Patient Care team information Care Team Personnel Name: Krystina Goldsmith RN Position: [facility] RN Member Role: Primary Care Nurse Name: Lacey Ibarra NP Position: [facility] PCO Associate Professional Member Role: PCP Address: Address: [address] [place] [id number] Name: Edna Mallory Position: [facility] Outreach Member Role: Lifetime Consulting Physician Name: Silvia Whaley RN Position: [facility] Onco RN Member Role: Primary Care Nurse Name: Tarah De Leon RN Position: [facility] AMB Nurse Member Role: Primary Care Nurse Care Team Related Persons Name: JIMENEZ GARCIA Address: [address] [address] Name: WILLY GARCIA Address: [address] [address]
--- OUTSIDE RECORDS SUMMARY | 2023-12-12 20:32 | XMS_ITS | Continuity of Care Document ---
Author Organization [facility] Reed Kali Address [address] [place] [address]- Care Team Providers Care Business Improvement Manager Name Role Phone Stacey Lacey GARCIA Primary Care Physician Encounter [facility] Date(s): 05/31/19 - 06/07/19 [facility] Adult [address] [place] [address]- [facility] Encounter Diagnosis Polyarthritis(Discharge Diagnosis) - 05/31/19 Attending Physician: Not on Staff, Attending MD [...] Diagnosis Diagnosis Type Effective Dates Health Status Cl inical Service Informant Polyarthritis Discharge Diagnosis 05/31/19 Vital Signs Most recent to oldest [Reference Range]: 1 2 Height 161.5 cm (05/31/19 2:55 PM) 161.5 cm (05/31/19 2:25 PM) Weight 100.6 kg (05/31/19 2:25 PM) Oxygen Saturation [94-100 %] 97 % (05/31/19 2:25 PM) Pulse Rate [55-90 bpm] 99 bpm *H* (05/31/19 2:25 PM) Body Mass Index [18.5-24.99] 38.57 *>HHI* (05/31/19 2:25 PM) Blood Pressure [90-138/55-84 mm Hg] 130/ 76mm Hg (05/31/19 2:55 PM) 150/80mm Hg *H* (05/31/19 2:25 PM) Respiratory Rate [16-30 br/min] 18 br/mi n (05/31/19 2:25 PM) Temperature [96.8-100.4 DegF] 98.1 DegF (05/31/19 2:25 PM) Mode of Delivery (Oxygen) Room air (05/31/19 2:25 PM) Blood pressure sites Arm, left (05/31/19 2:55 PM) Arm, left (05/31/19 2:25 PM) Temperature Route Oral (05/31/19 2:25 PM) Weight Obtained Via Standing scale (05/31/19 2:25 PM) Social History Social History Type Response Smoking Status Never smoker entered on: 09/07/15 Sex
--- OUTSIDE RECORDS SUMMARY | 2023-12-12 20:32 | XMS_ITS | Continuity of Care Document ---
Author Organization [facility] Reed Kali Address [address] [place] [address]- Care Team Providers Care Grain Thresher Name Role Phone Stacey Lacey GARCIA Primary Care Physician Encounter [facility] Date(s): 07/30/23 - 08/29/23 [facility] Adult [address] [place] [address]- Allergies, Adverse Reactions, Alerts Substance Reaction Severity [...] Given tetanus/diphtheria/pertussis, acel(Tdap) 08/04/15 Given 1Result Comment: [id number] 2Result Comment: Booster Medications acetaminophen 325 mg [...] 6 Refills, Maintenance, 12/16/22 16:28:00 EDT, Tablet, [facility], Partial fill upon patient request if the prescription is for a schedule II opioid drug., 1 tablet By Mouth 2 times a da... Start Date: 12/16/22 Status: Ordered duloxetine 20 mg oral enteric coated capsule 1 capsule, By Mouth, Daily, # 30 capsule, 5 Refills, Maintenance, 06/24/23 15:42:00 EDT, [facility], 158, cm, 05/19/23 16:05:00 EST, Height, 78, kg, 12/13/21 10:52:00 EDT, Dry Weight Start Date: 06/24/23 Status: Ordered ferrous gluconate 324 mg oral tablet 1 tablet, By Mouth, 2 times a day, IF MENSTRUATING, INCREASE TO 3 TIMES DAILY. 30 DAY SUPPLY., # 70tablet, 1 Refills, Maintenance, 12/17/21 9:20:00 EDT, [id number], 158, cm, 12/13/21 10:52:00 EDT, Height, 78, kg, 12/13/21 10:52:00 EDT, Dry Weight Start Date: 12/17/21 Status: Ordered Flonase Allergy Relief 50 mcg/inh nasal spray See Instructions, 1 sprays Daily in each nostril, # 16 Gm, 0 Refills, Maintenance, 05/08/23 10:58:00 EST, [facility]/pharmacy #[id number], Partial fill upon patient request if the prescription is for a schedule II opioid drug., 158, cm, 01/13/23 9:29:00 EDT, [facility]... Start Date: 05/08/23 Status: Ordered folic acid 1 mg oral tablet 1, tablet, By Mouth, Daily, EXCEPT THE DAY YOU TAKE METHOTREXATE., # 26 tablet, Refills 6, Maintenance, 03/11/23 15:05:00 EST, Route to Pharmacy Electronically, [id number], 158, cm, 01/13/23 9:29:00 EDT, Height, 78, [...] 05/19/23 16:26:00 EST, Route to Pharmacy Electronically, [facility], Partial fill upon patient request if the prescription is for a lucho... Start Date: 05/19/23 Status: Ordered Insulin Syringe, BD Ultra-Fine 1 cc 30 G x 12.7 mm (1/2in) See Instructions, # 6 each, Maintenance, use one needle with each medication administration, 08/28/23 10:34:00 EDT, Supply, 158, cm, 08/01/23 7:14:00 EDT, Height, 78, kg, 12/13/21 10:52:00 EDT, Dry Weight Start Date: 08/28/23 Status: Ordered meloxicam 15 mg oral tablet 1 tablet, By Mouth, Every other day, # 15 tablet, 4 Refills, Maintenance, 03/26/23 13:25:00 EST, [id number], 158, cm, 01/13/23 9:29:00 EDT, Height, 78, kg, 12/13/21 10:52:00 EDT, Dry Weight Start Date: 03/26/23 Status: Ordered meloxicam 15 mg oral tablet See Instructions, TAKE 1 TABLET BY MOUTH EVERY OTHER DAY, # 15 tablet, 4 Refills, Maintenance, 08/04/23 9:38:00 EDT, [id number], 158, cm, 08/01/23 7:14:00 EDT, Height, 78, kg, 12/13/21 10:52:00 EDT, Dry Weight Start Date: 08/04/23 Status: Ordered methotrexate 25 mg/mL injectable solution = 25 mg, Subcutaneous Injection, Every week, # 4 mL, 6 Refills, Maintenance, 12/16/22 17:05:00 EDT,[facility], Partial fill upon [...] Stop 12/12/23 15:43:00 EDT, 03/17/23 15:43:00 EST, [facility], Partial fill upon patient request if the prescription is for a schedule II opioid drug., 158, c... Start Date: 03/17/23 Stop Date: 12/12/23 Status: Ordered Simponi SmartJect 50 mg/0.5 mL subcutaneous solution See Instructions, INJECT 50MG SUBCUTANEOUSLY EVERY 28 DAYS, # 0.5 mL, 3 Refills, Maintenance, 08/06/23 11:46:00 EDT, [facility], 158, cm, 08/01/23 7:14:00 EDT, Height, [...] Confirmed Active Iron deficiency anemia Confirmed Active [facility] systemic steroid user Confirmed Active Depression with [...] Team Personnel Name: Krystina Goldsmith RN Position: [facility] RN Member Role: Primary Care Nurse Name: Lacey Ibarra NP Position: [facility] PCO Associate Professional Member Role: PCP Address: Address: [address] [place] [id number] Name: Edna Mallory Position: [facility] Outreach Member Role: Lifetime Consulting Physician Name: Silvia Whaley RN Position: [facility] Onco RN Member Role: Primary Care Nurse Name: Tarah De Leon RN Position: [facility] AMB Nurse Member Role: Primary Care Nurse Care Team Related Persons Name: JIMENEZ GARCIA Address: home [address] [place] [id number] Name: WILLY GARCIA Address: home [address] [place] [id number]
--- OUTSIDE RECORDS SUMMARY | 2023-12-12 20:32 | XMS_ITS | Continuity of Care Document ---
Author Organization [facility] Reed Kali Address [address] [place] [address]- Care Team Providers Care Morgue Attendant Name Role Phone Stacey BENCH LOOM WEAVER, Lacey Thomas Primary Care Physician [phone] [place] [facility] [place](s[place] 08/21/23 - 09/20/23 [facility] Adult [address] [place] [address]- Allergies, Adverse Reactions, Alerts Substance Reaction Severity [...] Given tetanus/diphtheria/pertussis, acel(Tdap) 08/04/15 Given 1Result Comment: [id number] 2Result Comment: Booster Medications acetaminophen 325 mg [...] tablet, 6 Refills, Maintenance, 05/20/23 9:32:00 EST, [facility], Partial fill... Start Date: 05/20/23 [...] 6 Refills, Maintenance, 12/16/22 16:28:00 EDT, Tablet, [facility], Partial fill upon patient request if the prescription is for a schedule II opioid drug., 1 tablet By Mouth 2 times a da... Start Date: 12/16/22 Status: Ordered duloxetine 20 mg oral enteric coated capsule 2 capsule = 40 mg, By Mouth, Daily, # 180 capsule, 0 Refills, Maintenance, 09/16/23 11:45:00 EDT, EC Capsule, [facility]/pharmacy #[id number], 158, cm, 09/15/23 8:50:00 EDT, Height, 78, kg, 12/13/21 10:52:00 EDT,Dry Weight Start Date: 09/16/23 Stop Date: 12/15/23 Status: Ordered ferrous gluconate 324 mg oral tablet 1 tablet, By Mouth, 2 times a day, IF MENSTRUATING, INCREASE TO 3 TIMES DAILY. 30 DAY SUPPLY., # 70tablet, 1 Refills, Maintenance, 12/17/21 9:20:00 EDT, [facility] [id number], 158, cm, 12/13/21 10:52:00 EDT, Height, 78, kg, 12/13/21 10:52:00 EDT, Dry Weight Start Date: 12/17/21 Status: Ordered Flonase Allergy Relief 50 mcg/inh nasal spray See Instructions, 1 sprays Daily in each nostril, # 16 Gm, 0 Refills, Maintenance, 05/08/23 10:58:00 EST, [facility]/pharmacy #[id number], Partial fill upon patient request if the prescription is for a schedule II opioid drug., 158, cm, 01/13/23 9:29:00 EDT, [facility]... Start Date: 05/08/23 Status: Ordered folic acid 1 mg oral tablet 1, tablet, By Mouth, Daily, EXCEPT THE DAY YOU TAKE METHOTREXATE., # 26 tablet, Refills 6, Maintenance, 03/11/23 15:05:00 EST, Route to Pharmacy Electronically, [facility] STORE [id number], 158, cm, 01/13/23 9:29:00 EDT, Height, 78, [...] 05/19/23 16:26:00 EST, Route to Pharmacy Electronically, [facility], Partial fill upon patient request [...] tablet, 4 Refills, Maintenance, 08/04/23 9:38:00 EDT, [facility] STORE [id number], 158, cm, 08/01/23 7:14:00 EDT, Height, 78, kg, 12/13/21 10:52:00 EDT, Dry Weight Start Date: 08/04/23 Status: Ordered methotrexate 25 mg/mL injectable solution = 25 mg, Subcutaneous Injection, Every week, # 4 mL, 6 Refills, Maintenance, 12/16/22 17:05:00 EDT,[facility], Partial fill upon patient request [...] Stop 12/12/23 15:43:00 EDT, 03/17/23 15:43:00 EST, [facility], Partial fill upon patient request if the prescription is for a schedule II opioid drug., 158, c... Start Date: 03/17/23 Stop Date: 12/12/23 Status: Ordered Simponi SmartJect 50 mg/0.5 mL subcutaneous solution See Instructions, INJECT 50MG SUBCUTANEOUSLY EVERY 28 DAYS, # 0.5 mL, 3 Refills, Maintenance, 08/06/23 11:46:00 EDT, [facility], 158, cm, 08/01/23 7:14:00 EDT, [...] 0 Refills, Maintenance, 02/11/23 14:46:00EST, Tablet, [facility]/pharmacy #[id number], Partial fill upon patient [...] Name: Krystina Goldsmith RN Position: [facility] RN Member Role: Primary Care Nurse Name: Lacey Ibarra NP Position: [facility] PCO Associate Professional Member Role: PCP Address: Address: [address] [place] [id number] Name: Edna Mallory Position: [facility] Outreach Member Role: Lifetime Consulting Physician Name: Silvia Whaley RN Position: [facility] Onco RN Member Role: Primary Care Nurse Name: Tarah De Leon RN Position: [facility] AMB Nurse Member Role: Primary Care Nurse Care Team Related Persons Name: JIMENEZ GARCIA Address: home [address] [place] [id number] Name: WILLY GARCIA Address: [address] [address]
--- OUTSIDE RECORDS SUMMARY | 2023-12-12 20:32 | XMS_ITS | Continuity of Care Document ---
Author Organization [facility] Address [address] [place] [address]- Care Team Providers Care Electronics System Mechanic Name Role Phone Stacey Lacey GARCIA Primary Care Physician Encounter [facility] Date(s): 02/06/21 - 03/08/21 [facility] [address] [place] [phone]- Allergies, Adverse Reactions, Alerts Substance Reaction Severity Status sulfADIAZINE Active Immunizations Given and Recorded Vaccine Date Status Refusal Reason SARS-CoV-2 (COVID-19) mRNA BNT-162b2 vac 07/13/20 Recorded SARS-CoV-2 (COVID-19) mRNA BNT-162s8 vac 06/21/20 Recorded Measles/Mumps/Rubella Virus Vaccine 10/04/15 [...] Active History of hip replacement(Confirmed) 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
--- OUTSIDE RECORDS SUMMARY | 2023-12-12 20:32 | XMS_ITS | Continuity of Care Document ---
Author Organization [facility] Reed Kali Address [address] [place] [address]- Care Team Providers Care Plunket Nurse Name Role Phone Stacey Lacey GARCIA Primary Care Physician [place] [facility] [place]22 [facility] Adult [address] [place] [address]- Allergies, Adverse Reactions, Alerts Substance Reaction Severity [...] Refills, Maintenance, 11/21/22 10:12:00 EDT, Tablet, [id number], Partial fill upon patient request if the prescription is for a schedule II opioid drug., 1 tablet By Mouth 2 times a day, 158,... Start Date: 11/21/22 Status: Ordered clobetasol 0.05% topical ointment 1 application, Topically, 2 times a day, for 14 days, # 60 Gm, 1 Refills, Acute 12/19/22 10:18:00 EDT, 11/21/22 10:18:00 EDT, Ointment, [facility]/pharmacy #[id number], Partial fill upon patient request if the prescription is for a schedule II opioid drug., 1 appl... Start Date: 11/21/22 Stop Date: 12/19/22 Status: Ordered ferrous gluconate 324 mg oral tablet 1 tablet, By Mouth, 2 times a day, IF MENSTRUATING, INCREASE TO 3 TIMES DAILY. 30 DAY SUPPLY., # 70tablet, 1 Refills, Maintenance, 12/17/21 9:20:00 EDT, [id number], 158, cm, 12/13/21 10:52:00 EDT, Height, 78, kg, 12/13/21 10:52:00 EDT, Dry Weight Start Date: 12/17/21 Status: Ordered folic acid 1 mg oral tablet 1, tablet, By Mouth, Daily, EXCEPT THE DAY YOU TAKE METHOTREXATE., # 26 tablet, Refills 6, Tot. Refills 6, Maintenance, 03/02/22 11:56:00 EST, Route to Pharmacy Electronically, [facility]/pharmacy #[id number], 158, cm, 03/02/22 11:30:00 EST, Height, 78, kg, ... Start Date: 03/02/22 Status: Ordered meloxicam 15 mg oral tablet 1 tablet, By Mouth, Every other day, # 15 tablet, 4 Refills, Maintenance, 11/14/22 8:23:00 EDT, [id number], 158, cm, 07/17/22 8:31:00 EDT, Height, 78, kg, 12/13/21 10:52:00 EDT, Dry Weight Start Date: 11/14/22 Status: Ordered methotrexate 2.5 mg oral tablet See Instructions, 6 tablet By Mouth Every week, # 30 tablet, 6 Refills, Maintenance, 03/02/22 11:56:00 EST, [facility]/pharmacy #[id number], Partial fill upon patient request [...] 4 Refills, Maintenance, 10/18/22 15:43:00 EDT, [facility], Partial fill upon patient request if the prescription is for a schedule II opioid drug., 158, cm, 07/17/22 8:31:00 EDT, Height,... Start Date: 10/18/22 Stop Date: 03/17/23 Status: Ordered Simponi 50 mg/0.5 mL subcutaneous solution 0.5 mL = 50 mg, Subcutaneous Injection, Every 30 days, # 1 each, 3 Refills, Maintenance, 03/05/22 15:57:00 EST, Solution, [facility], Partial fill upon patient request if the prescription is for a schedule II opioid drug., 158, cm, 12... Start Date: 03/05/22 Status: Ordered Simponi SmartJect 50 mg/0.5 mL subcutaneous solution 0.5 mL = 50 mg, Subcutaneous Injection, Every 30 days, # 1 each, 0 Refills, Maintenance, 03/06/22 12:04:00 EST, Solution, [facility], Partial fill upon patient request if the prescription is for a schedule II opioid drug., 158, cm, 12... Start Date: 03/06/22 Status: Ordered Simponi SmartJect 50 mg/0.5 mL subcutaneous solution = 50 mg, Subcutaneous Infusion, Every 28 days, # 30 each, 3 Refills, Maintenance, 03/06/22 12:04:00EST, [facility], Partial fill upon patient request [...] Associate Professional Member Role: PCP Address: Address: [address] [place] [id number] Name: Edna Mallory Position: [facility] Outreach Member Role: Lifetime Consulting Physician Name: Silvia Wahley RN Position: [facility] Onco RN Member Role: Primary Care Nurse Name: Tarah De Leon RN Position: [facility] SN RN Member Role: Primary Care Nurse Care Team Related Persons Name: JIMENEZ GARCIA Address: home [address] [place] [address] Name: WILLY GARCIA Address: home [address] [place] [address]
--- OUTSIDE RECORDS SUMMARY | 2023-12-12 20:32 | XMS_ITS | Continuity of Care Document ---
Author Organization [facility] ter Address [address] [place] [address]- Care Team Providers Care Customs Opener Verifier Packer Name Role Phone Stacey WIC SITE COORDINATOR, Lacey Thomas Primary Care Physician Encounter [facility] [place] Date(s): 09/10/21 - 09/10/[address] [address]- Discharge Disposition: A-D/C Home Attending Physician: Armando Maria MD Admitting Physician: Armando Maria MD Referring Physician: Everette James MD Allergies, Adverse Reactions, Alerts Substance Reaction [...] opioid drug. Start Date: 08/29/21 Status: Ordered OxyCODONE IR Tablet 5 mg, Tablet, By Mouth, Every 4 hours, in PACU ONLY, if patient can tolerate PO, PRN for Pain , Mild, Routine, 09/10/21 8:25:00 EDT Start Date: 09/10/21 Stop Date: 09/10/21 Status: Discontinued Tramadol = 50 mg, By Mouth, Every [...] Urge incontinence(Confirmed) Active Vitamin D deficiency(Confirmed) Active Vital Signs Most recent to oldest [Reference Range]: 1 2 3 Height 160.02 cm (09/10/21 6:22 AM) 160.02 cm (09/07/21 10:08 AM) Weight 84.3 kg (09/10/21 6:22 AM) 85.91 kg (09/07/21 10:08 AM) Oxygen Saturation [94-100 %] 100 % (09/10/21 9:15 AM) 100 % (09/10/21 9:00 AM) 100 % (09/10/21 8:45 AM) Pulse Rate [55-90 bpm] 81 bpm (09/10/21 6:22 AM) Body Mass Index [18.5-24.99] 32.92 *>HHI* (09/10/21 6:22 AM) 33.55 *>HHI* (09/07/21 10:08 AM) Blood Pressure [90-138/55-84 mm Hg] 147/84mm Hg *H* (09/10/21 9:15 AM) 142/82mm Hg *H* (09/10/21 9:00 AM) 138/86mm Hg (09/10/21 8:45 AM) Respiratory Rate [16-30 br/min] 16 br/min (09/10/21 9:52 AM) 19 br/min (09/10/21 9:15 AM) 15 br/min *L* (09/10/21 9:00 AM) Temperature [96.8-100.4 DegF] 98.2 DegF (09/10/21 9:45 AM) 98.3 DegF (09/10/21 8:30 AM) 97.9 DegF (09/10/21 6:22 AM) Liters per Minute 3 L/min (09/10/21 8:45 AM) 6 L/min (09/10/21 8:30 AM) Mode of Delivery (Oxygen) Room air (09/10/21 9:15 AM) Room air (09/10/21 9:00 AM) Simple face mask (09/10/21 8:45 AM) Blood pressure sites Arm, left (09/10/21 8:30 AM) Arm, right (09/10/21 6:22 AM) Temperature Route Temporal (09/10/21 9:45 AM) Temporal (09/10/21 8:30 AM) Temporal (09/10/21 6:22 AM) Dry Weight 84.3 kg (09/10/21 6:22 AM) 85.91 kg (09/07/21 10:08 AM) Weight Obtained Via Standing scale (09/10/21 6:22 AM) Patient/family stated (09/07/21 10:08 AM) Dry Weight Obtained Via Standing scale (09/10/21 6:22 AM) Patient/family stated (09/07/21 10:08 AM) Social History Social History Type Response Smoking Status Never smoker entered on: 09/07/15 Sex
--- OUTSIDE RECORDS SUMMARY | 2023-12-12 20:32 | XMS_ITS | Continuity of Care Document ---
Author Organization [facility] Address [address] [place] [address]- Care Team Providers Care Drop Press Hand Name Role Phone Stacey Lacey GARCIA Primary Care Physician [phone] Encounter [facility] Date(s): 12/11/20 - 01/10/21 [facility] [address] [place] [phone]- Allergies, Adverse Reactions, Alerts Substance Reaction Severity Status sulfADIAZINE Active Immunizations Given and Recorded Vaccine Date Status Refusal Reason SARS-CoV-2 (COVID-19) mRNA BNT-162b2 vac 07/13/20 Recorded SARS-CoV-2 (COVID-19) mRNA BNT-162s7 vac 06/21/20 Recorded Measles/Mumps/Rubella Virus Vaccine 10/04/15 [...] condition(Confirmed) Active History of hip 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
[2023-12-12 20:51] LABS: Troponin-I High Sensitivity < 2.7 ng/L (<3.5-17.0)
[2023-12-12 22:26] VITALS: BP 162/78; PULSE 77; RESP 13; TEMP 37.1; O2SAT 100
[2023-12-12 22:33] VITALS: BP 162/78; PULSE 74; RESP 16; O2SAT 100
[2023-12-12 23:32] VITALS: BP 146/75; PULSE 76; RESP 13; TEMP 36.7; O2SAT 100
== END 2023-12-12 23:52 | disposition home or self-care (01) ==
PROVIDERS: Physician Assistant Medical; Emergency Provider Emergency Medicine Emergency Medical Services; PCP Nurse Practitioner Family
DX: R00.2 Palpitations (principal); F41.9 Anxiety disorder, unspecified; R42 Dizziness and giddiness; R06.02 Shortness of breath; F12.90 Cannabis use, unspecified, uncomplicated; Z87.891 Personal history of nicotine dependence
CPT/HCPCS: 36415; 71046; 80053; 83735; 84484; 85025; 93005; 99283; 99285